=== PATIENT | female | born 1975 | race African-American/Black ===

== ENCOUNTER 2023-05-05 02:13 | Emergency (ER) | payer OTHER, SELFPAY ==
--- NOTE | ~2023-05-05 | CT_ITS ---
CT of the Abdomen and Pelvis: Indication: Abdominal pain Technique: 2.5 mm axial scans were obtained through the abdomen and pelvis following intravenous adm inistration of 100 cc of Omnipaque 350. Dose reduction technique was used on this scan by utilizing a utomated exposure control and iterative reconstruction technique. The dose-length product (DLP) was 2 05.08 mGy-cm. Findings: Scans through the lung bases are unremarkable. The liver, spleen, pancreas, gallbladder, adrenals and kidneys are within normal limits. No evidence of aortic aneurysm. No lymphadenopathy. No bowel obstruction. No abscess or free air. Questionable wall thickening gastric antrum. Images through the pelvis were performed. Urinary bladder is unremarkable. 2.8 cm right ovarian cyst present. No adnexal mass seen. No ascites. Impression: Questionable focal wall thickening gastric antrum. Correlate for gastritis/peptic ulcer disease. 2.8 cm right ovarian cyst. Reviewed, dictated and finalized at [facility]. RWRITING ASSISTANT Impression: Questionable focal wall thickening gastric antrum. Correlate for gastritis/pept ic ulcer disease. 2.8 cm right ovarian cyst.
[2023-05-05 02:27] VITALS: BP 109/75; PULSE 79; RESP 15; TEMP 36.6; O2SAT 100
[2023-05-05 02:47] LABS: Basophils Percent Auto 0.3 % (0.2-1.2); Eosinophils Absolute Auto 0.1 K/mm3 (0-0.3); Hemoglobin 13.3 g/dL (12.0-15.0); Immature Granulocyte Absolute 0.01 K/mm3 (0.00-0.031); Immature Granulocyte Percent A 0.2 % (0-0.5); Lymphocytes Absolute Auto 2.23 K/mm3 (0.9-3.2); Lymphocytes Percent Auto 37.2 % (18.3-44.2); Mean Corpuscular HGB Conc 31.7 g/dl (32-36); Mean Corpuscular Hemoglobin 30.4 pg (26-34); Mean Corpuscular Volume 96.1 fl (80-100); Mean Platelet Volume 10.8 fl (7.4-10.4); Monocytes Absolute Auto 0.4 K/mm3 (0.1-0.6); Neutrophils Absolute Auto 3.3 K/mm3 (1.3-6.7); Neutrophils Percent Auto 54.3 % (45.5-73.1); Platelet Count Result 243 k/mm3 (150-375); Red Blood Count 4.37 M/mm3 (4.2-5.4); Red Cell Distribution Width 14.6 % (11.5-14.5)
[2023-05-05 02:56] LABS: Alanine Aminotransferase 16 U/L (6-35); Albumin Level 4.3 g/dL (3.5-5.1); Alkaline Phosphatase 206 U/L (38-126); Anion Gap 7 mmol/L (8-16); Aspartate Amino Transferase 20 U/L (14-36); Bilirubin,Total 0.4 mg/dL (0.2-1.3); Blood Urea Nitrogen 15 mg/dL (7-17); Calcium 9.3 mg/dL (8.4-10.2); Carbon Dioxide 27 mmol/L (22-30); Chloride 105 mmol/L (98-107); Estimated CRCL calculation 72 ml/min; Estimated Glomerular Filt Rate > 60; Glucose 97 mg/dL (65-110); Lipase 403 U/L (23-300); Potassium 3.7 mmol/L (3.4-5.0); Sodium 139 mmol/L (137-145)
--- NOTE | 2023-05-05 03:01 | ED.GENADULT ---
HPI - General Adult General Chief complaint: Abdominal Pain Stated complaint: abd pain Time Seen by Provider: 05/05/23 02:17 History of Present Illness HPI narrative: 47-year-old female present to the emergency department for evaluation of lower abdominal pain. Patient states she also has had nausea for the last few days. Patient states that the abdominal pain started earlier today. Patient denies any pain with urination but does have urinary pressure. Patient does have some epigastric tenderness to palpation but denies any prior history pancreatitis. Patient does admit to drinking alcohol almost daily. patient denies any change in bowel habits and denies any black tarry stool, denies any prior history of GI bleed. Related Data Allergies Allergy/AdvReac Type Severity Reaction Status Date / Time No Known Allergies Allergy Verified 06/14/21 14:49 Review of Systems Review of Systems: All systems reviewed & are unremarkable except as noted in HPI and below PMFSH Surgical History Surgical History (Updated 06/14/21 @ 14:50 by Enma Woodard MA) S/P foot surgery, left Social History Social History (Updated 06/14/21 @ 14:51 by Enma Woodard MA) Smoking packs per day: 2 Smoking cigarettes per day: 40.0 Years smoked: 20 Smoking pack-years: 40.00 Smoking status: Current some day smoker Tobacco type: cigarettes Alcohol intake: current Alcohol use details: socially Substance use: never Occupation/Education: occupation Additional occupation/education comments: intermediate Gender identity (if verbalized by the patient): Female Sexual Orientation (if Verbalized by the Patient): Straight or Heterosexual Spiritual care concerns: No Agree to blood products: No Exam Narrative: APPEARANCE: Well appearing, no pain, no distress, well-nourished. HEAD: normocephalic, atraumatic. EYES: PERRLA/EOMI, conjunctivae clear. NOSE: Normal no drainage EARS:TMS clear with good light reflex. THROAT: Pharynx clear, no exudate. NECK: Supple. No adenopathy, no masses. RESPIRATORY: Airway patent, respirations nonlabored. Clear to auscultation bilaterally, no rales, rhonchi, wheezing. CARDIOVASCULAR: Regular rate and rhythm without murmurs rubs or gallops. ABDOMINAL: epigastric and suprapubic tenderness to palpation MUSCULOSKELETAL: Moves all extremities. Strength/ROM intact, No edema, No calf tenderness. NEURO: Alert. Cranial nerves II through XII intact. grossly intact Course Course Emergency Course: 47-year-old female presented to the emergency department for evaluation of suprapubic abdominal pain. Patient is afebrile with no leukocytosis but a stable 6 hemoglobin of 13.3. No significant abnormalities on her CMP. Patient did have an elevated lipase of 403. UA was concerning for urinary tract infection. CT scan did show questionable focal wall thickening of the gastric antrum. Patient was started on antibiotics for the urinary tract infection. All questions were addressed. Patient was comfortable the plan with discharge and close follow-up. Vital Signs Vital signs: Vital Signs Temperature 97.8 F 05/05/23 02:27 Pulse Rate 79 05/05/23 02:27 Respiratory Rate 15 05/05/23 02:27 Blood Pressure 109/75 05/05/23 02:27 Pulse Oximetry 100 05/05/23 02:27 Oxygen Delivery Room Air 05/05/23 02:27 Temperature 97.8 F 05/05/23 02:27 Pulse Rate 77 05/05/23 06:13 Respiratory Rate 14 05/05/23 06:13 Blood Pressure 99/70 L 05/05/23 06:13 Pulse Oximetry 100 05/05/23 06:13 Oxygen Delivery Room Air 05/05/23 02:27 Medical Decision Making Differential Diagnosis Differential Diagnosis: pancreatitis, gastritis, esophagitis, colitis, diverticulitis, appendicitis, urinary tract infection, pyelonephritis Vital Signs Vital Signs: Vital Signs Temperature 97.8 F 05/05/23 02:27 Pulse Rate 79 05/05/23 02:27 Respiratory Rate 15 05/05/23 02:27 Blood Pressure 109/75
[2023-05-05] MEDS: HYDROmorphone HCL INJ (*CRX) 1 MG/ML SYR 0.5 MG IV PUSH (03:07)
[2023-05-05] MEDS: SODIUM CHLORIDE 0.9% IV 1,000 ML 999 ML IV CONT (03:07)
[2023-05-05] MEDS: METOCLOPRAMIDE HCL INJ 10 MG/2 ML VIAL IV PUSH (03:08)
[2023-05-05 03:54] LABS: Appearance Urine Cloudy (Clear); Bacteria Urine Rare /hpf; Bilirubin Urine Negative (Negative); Blood Urine 3+ (Negative); Color Urine Yellow (Yellow); Glucose Urine UA Negative (Negative); Ketones Urine Trace mg/dL (Negative); Leukocyte Esterase Ur Trace LEU/UL (Negative); Nitrate Urine Negative (Negative); Non Pathogenic Casts 0-2; Protein Urine Negative (Negative); Specific Grav Ur 1.027 (1.001-1.035); Squamous Epithelial Cell Urine Few /hpf (Few); pH Urine 6.5 (5.0-9.0)
[2023-05-05 04:26] LABS: Add Urine Microscopic? YES
[2023-05-05] MEDS: ACETAMINOPHEN 500 MG TABLET 1000 MG PO (05:35)
[2023-05-05] MEDS: PHENAZOPYRIDINE HCL 100 MG TABLET PO (05:35)
[2023-05-05 06:13] VITALS: BP 99/70; PULSE 77; RESP 14; O2SAT 100
== END 2023-05-05 06:33 | disposition home or self-care (01) ==
PROVIDERS: Emergency Provider Emergency Medicine
DX: N39.0 Urinary tract infection, site not specified (principal); K29.70 Gastritis, unspecified, without bleeding; F17.210 Nicotine dependence, cigarettes, uncomplicated; N83.201 Unspecified ovarian cyst, right side
CPT/HCPCS: 36415; 74177; 80053; 81001; 81025; 83690; 85025; 87086; 87088; 96361; 96365; 96375; 99284; A9270; J0696; J1170; J2765; J7030; Q9967

== ENCOUNTER 2023-06-07 10:25 | Emergency (ER) | payer OTHER, SELFPAY ==
[2023-06-07] VITALS (17 sets, daily range): BP systolic 106–141; BP diastolic 69–91; PULSE 60–87; RESP 13–21; TEMP 36.5; O2SAT 92–100
--- NOTE | ~2023-06-07 | CT_ITS ---
EXAMINATION: CT abdomen pelvis w con DATE: 06/07/2023 15:22 INDICATION: Right lower quadrant abdominal tenderness. TECHNIQUE: Computed tomography (CT) of the abdomen and pelvis was performed with 100 mL Omnipaque 350 intravenous contrast. Automated exposure control and iterative reconstruction technique were employe d. The dose-length product was 210.76 mGy-cm. COMPARISON: CT abdomen and pelvis 05/05/2023, ultrasound 06/07/2023 FINDINGS: The visualized portions of the lung bases demonstrate again demonstrate numerous 1-2 mm nod ules, likely benign. No pleural effusion. The heart size is normal. No pericardial effusion. The sple en, pancreas, adrenal glands, and kidneys are normal. There are no dilated loops of bowel. The append ix is not visualized. There are no pathologically enlarged lymph nodes. There is physiologic fluid in the pelvis. There is mild lumbar spondylosis. IMPRESSION: 1. No etiology for right lower quadrant abdominal tenderness. Reviewed, dictated and finalized at location E. NDARY SOCIAL STUDIES TEACHER
--- NOTE | ~2023-06-07 | US_ITS ---
EXAMINATION: US pelvic complete w TV DATE: 06/07/2023 15:06 INDICATION: Pelvic pain Comparison:No prior studies for comparison. TECHNIQUE: Multiple transabdominal and endovaginal sonographic images of the pelvis performed. FINDINGS: The uterus measures 7.8 x 4.1 x 5.1 cm. The endometrial complex measures 5 mm. The right ovary is not visualized. Left ovary is normal measuring 2.1 x 3 x 1.5 cm. There is free fluid in the pelvis. There are no abnormal masses seen on either side. IMPRESSION: 1. Unremarkable pelvic ultrasound. Reviewed, dictated and finalized at location B. RACT WRITER
--- NOTE | 2023-06-07 12:29 | PC.NURSE ---
pt states they were prescribed antibiotics roughly a month ago but have no been compliant with prescription. pt states they take 1 or 2 pills a week and have not finished prescription
[2023-06-07 13:20] LABS: Appearance Urine Clear (Clear); Bacteria Urine None Seen /hpf; Bilirubin Urine Negative (Negative); Color Urine Yellow (Yellow); Glucose Urine UA Negative (Negative); Ketones Urine Negative (Negative); Leukocyte Esterase Ur Negative LEU/UL (Negative); Nitrate Urine Negative (Negative); Non Pathogenic Casts 0-2; Protein Urine Negative (Negative); Specific Grav Ur 1.012 (1.001-1.035); Squamous Epithelial Cell Urine None seen /hpf (Few); WBC Urine 0-5 /hpf
--- NOTE | 2023-06-07 13:22 | ED.GENADULT ---
HPI - General Adult General Chief complaint: Recheck/Abnormal Lab/Rx Stated complaint: Sent by OB office. Time Seen by Provider: 06/07/23 13:00 Source: patient and other (OBGYn Dr Choe) Mode of arrival: ambulatory Limitations: no limitations History of Present Illness HPI narrative: Patient is a 47 yo female who presents from ObGyn's office given concerns. She has had right sided abdominal pain (RLQ) radiating to her back for 3 weeks. Patient is concerned about weight loss, from 122 lbs to 113 lbs in the past 3 weeks. Recently diagnosed with a UTI here in the ED last month, has only intermittently been taking prescription for this but symptoms started after starting Keflex. Also takes omeprazole. No fevers but has been having night sweats. She does have chronic constipation, sometimes going several days to a week between bowel movements. Last colonoscopy was in the past 1-2 years, reportedly normal. No bloody bowel movements. Has been having some vaginal discharge but no vaginal bleeding. LMP March 2023 thus believed to be marcia-menopausal. Has been nauseated but without vomiting. Gets lightheaded when standing. Not using Tylenol/ibuprofen. Had been using cigarettes an and marijuana to help pain/symptoms. No palliating/provoking symptoms. Pain is sharp and burning. 10/10 in severity. Related Data Allergies Allergy/AdvReac Type Severity Reaction Status Date / Time No Known Allergies Allergy Verified 06/07/23 09:20 [facility] Surgical History Surgical History History of colonoscopy S/P foot surgery, left Social History Social History (Updated 06/08/23 @ 00:14 by Shari Cali MD) Smoking packs per day: 2 Smoking cigarettes per day: 40.0 Years smoked: 20 Smoking pack-years: 40.00 Smoking status: Current every day smoker Tobacco type: cigarettes Alcohol intake: current Alcohol use details: socially Substance use: current Substance use type: marijuana Current Housing: Decline to Answer Concerned About Future Housing: Decline to Answer Difficulty Paying Gas/Electric Bills: Decline to Answer Difficulty Paying for Meds: Decline to Answer Currently Unemployed: Decline to Answer Education: Don't Know Difficulty w/ Childcare or Family Care: Decline to Answer Living arrangements: alone Occupation/Education: occupation 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 HEAD: Normocephalic, atraumatic. EYES: Non injected, non icteric ENT: Nares clear, no rhinorrhea or epistaxis. NECK: Supple. CHEST: Speaking in complete sentences No respiratory distress. HEART: Regular rate and rhythm. ABDOMEN: Soft, nondistended. No tenderness to palpation throughout . No rigidity or guarding. EXTREMITIES: Normal range of motion. No edema. SKIN: Warm, dry, no rash. NEURO: No focal deficits. Alert and oriented. Ambulates to restroom with steady gait. PSYCH: Normal mood and affect. Course Vital Signs Vital signs: Vital Signs Temperature 97.7 F 06/07/23 10:36 Pulse Rate 87 06/07/23 10:36 Respiratory Rate 16 06/07/23 10:36 Blood Pressure 141/86 H 06/07/23 10:36 Pulse Oximetry 100 06/07/23 10:36 Oxygen Delivery Room Air 06/07/23 10:36 Temperature 97.7 F 06/07/23 10:36 Pulse Rate 72 06/07/23 15:30 Respiratory Rate 16 06/07/23 15:30 Blood Pressure 123/91 H 06/07/23 15:30 Pulse Oximetry 92 06/07/23 15:30 Oxygen Delivery Room Air 06/07/23 10:36 Medical Decision Making MDM Narrative Medical decision making narrative: Pt presents from ObGyn office. I did discuss patient with ObGyn
[2023-06-07 13:25] LABS: Add Urine Microscopic? YES
[2023-06-07] MEDS: ACETAMINOPHEN 500 MG TABLET 1000 MG PO (14:05)
[2023-06-07 15:17] LABS: Estimated Glomerular Filt Rate > 60
[2023-06-07 15:40] LABS: Basophils Percent Auto 0.6 % (0.2-1.2); Eosinophils Percent Auto 0.6 % (0-4.4); Hematocrit 40.6 % (37.0-47.0); Hemoglobin 13.1 g/dL (12.0-15.0); Immature Granulocyte Absolute 0.01 K/mm3 (0.00-0.031); Immature Granulocyte Percent A 0.2 % (0-0.5); Lymphocytes Absolute Auto 2.05 K/mm3 (0.9-3.2); Mean Corpuscular HGB Conc 32.3 g/dl (32-36); Mean Corpuscular Hemoglobin 30.6 pg (26-34); Mean Corpuscular Volume 94.9 fl (80-100); Mean Platelet Volume 11.1 fl (7.4-10.4); Monocytes Absolute Auto 0.3 K/mm3 (0.1-0.6); Monocytes Percent Auto 6.1 % (2.6-8.5); Neutrophils Absolute Auto 2.8 K/mm3 (1.3-6.7); Neutrophils Percent Auto 53.5 % (45.5-73.1); Platelet Count Result 205 k/mm3 (150-375); Red Blood Count 4.28 M/mm3 (4.2-5.4); Red Cell Distribution Width 13.6 % (11.5-14.5); White Blood Count 5.3 K/mm3 (4.5-10.0)
[2023-06-07 15:46] LABS: Alanine Aminotransferase 14 U/L (6-35); Albumin Level 4.5 g/dL (3.5-5.1); Alkaline Phosphatase 110 U/L (38-126); Anion Gap 9 mmol/L (8-16); Aspartate Amino Transferase 22 U/L (14-36); Bilirubin,Total 0.6 mg/dL (0.2-1.3); Blood Urea Nitrogen 12 mg/dL (7-17); Calcium 9.3 mg/dL (8.4-10.2); Carbon Dioxide 25 mmol/L (22-30); Chloride 103 mmol/L (98-107); Estimated Glomerular Filt Rate > 60; Glucose 84 mg/dL (65-110); Lipase 128 U/L (23-300); Potassium 3.6 mmol/L (3.4-5.0); Sodium 137 mmol/L (137-145)
[2023-06-07 16:17] LABS: Influenza A QL RT-PCR Negative (Negative); Influenza B QL RT-PCR Negative (Negative); RSV RNA, RT-PCR Negative (Negative); SARS-CoV-2 RNA PCR Negative (Negative)
[2023-06-07] MEDS: DICYCLOMINE HCL 10 MG CAPSULE PO (17:10)
== END 2023-06-07 17:11 | disposition home or self-care (01) ==
PROVIDERS: Emergency Provider Student in an Organized Health Care Education/Training Program
DX: R10.31 Right lower quadrant pain (principal); Z20.822 Contact with and (suspected) exposure to COVID-19; F17.210 Nicotine dependence, cigarettes, uncomplicated
CPT/HCPCS: 74177; 76830; 76856; 80053; 81001; 81025; 83690; 85025; 87637; 99284; A9270; Q9967

== ENCOUNTER 2024-01-05 12:09 | Emergency (ER) | payer OTHER, SELFPAY ==
--- NOTE | ~2024-01-05 | CT_ITS ---
EXAMINATION: CT abdomen pelvis w con DATE: 01/05/2024 17:18 INDICATION: Left flank pain and left lower quadrant abdominal pain. TECHNIQUE: Computed tomography (CT) of the abdomen and pelvis was performed with 100 mL Omnipaque-350 intravenous contrast. Automated exposure control and iterative reconstruction technique were employe d. The dose-length product was 320.65 mGy-cm. COMPARISON: 06/07/2023 FINDINGS: Mild emphysema. Heart size is normal. No pericardial or pleural effusion. Liver, gallbladder, spleen, pancreas, bilateral adrenal glands and kidneys are normal. Bowels including the appendix are normal. Bladder, uterus and left adnexa are normal. 1.5 similar right ovarian follicle. Minimal amount of li phil physiologic free fluid in the cul-de-sac. No pathologically enlarged abdominal or pelvic lymphad enopathy. Transitional bilaterally sacralized L5 segment. IMPRESSION: 1. No acute intra-abdominal/pelvic process. Reviewed, dictated and finalized at location A.
--- NOTE | ~2024-01-05 | US_ITS ---
US pelvic complete w TV Ordering provider: Ligia Martinez History: . left sided pelvic pain, r/o torsion . Comparison: None. Technique: Transabdominal and endovaginal ultrasound of the pelvis (Doppler ultrasound interrogation techniques used as needed for this exam.) FINDINGS: CERVIX: Normal. UTERUS: Measures 7.4x 3.6x 4.8 cm in length which is within normal limits and is anteverted. No myom etrial masses. ENDOMETRIUM: Normal in thickness measuring 6.9 mm. No endometrial masses, cysts or fluid. CUL DE SAC: No free fluid. RIGHT OVARY: Normal in size measuring 2.6x 1.4x 2.8 cm. Normal echotexture. Doppler vascular flow pre sent. Dominant follicle is seen measuring 1.8 cm. LEFT OVARY: Normal in size measuring 1.8x 1.1x 1.8 cm. Normal echotexture. Doppler vascular flow pres ent. ADNEXA: Normal. No mass. IMPRESSION: Dominant follicle in the right ovary. normal pelvic ultrasound. Reviewed, dictated and finalized at location A.
[2024-01-05 13:26] VITALS: PULSE 94; RESP 16; TEMP 36.4; O2SAT 99
--- NOTE | 2024-01-05 13:52 | ED.ABDPAIN ---
HPI - Abdominal Pain General Chief Complaint: Abdominal Pain <JAYANT Tyson Last Filed: 01/05/24 13:55> Stated Complaint: abdominal pain <JAYANT Tyson Last Filed: 01/05/24 13:55> Time Seen by Provider: 01/05/24 13:52 <Sapna Tobias PA-C - Last Filed: 01/05/24 13:55> Focused HPI: patient is a 48-year-old female who presents the ED with report of left lower quadrant abdominal pain. Patient reports pain began yesterday and has been worsening since then. She has not taken anything for the pain. Pain radiates around to left lower back /left flank region. She denies history of similar pain. Denies nausea, vomiting, diarrhea, constipation. Reports regular bowel movements. Denies dysuria, hematuria, abnormal vaginal bleeding. GENERAL: Mildly uncomfortable-appearing, thin, and in no acute distress. HEAD: Normocephalic, atraumatic. CHEST: Clear to auscultation. ?No respiratory distress. HEART: Regular rate and rhythm.? ABD: TTP diffusely throughout abdomen, more focal in LLQ, +CVA tenderness on L NEURO: ?Alert and oriented x3. Patient screened in triage and initial orders placed.? ?Additional care and disposition to be based upon?diagnostic testing and treatment. <JAYANT Tyson Last Filed: 01/05/24 13:55> Focused HPI: Patient is a 48-year-old female who presents the ED with report of left lower quadrant abdominal pain. Patient reports pain began yesterday and has been worsening since then. She has not taken anything for the pain. Pain radiates around to left lower back /left flank region. She denies history of similar pain. Denies nausea, vomiting, diarrhea, constipation. Reports regular bowel movements. Denies dysuria, hematuria, abnormal vaginal bleeding. GENERAL: Mildly uncomfortable-appearing, thin, and in no acute distress. HEAD: Normocephalic, atraumatic. CHEST: Clear to auscultation. ?No respiratory distress. HEART: Regular rate and rhythm.? ABD: TTP diffusely throughout abdomen, more focal in LLQ, +CVA tenderness on L NEURO: ?Alert and oriented x3. Patient screened in triage and initial orders placed.? ?Additional care and disposition to be based upon?diagnostic testing and treatment. <Ligia Martinez PA-C - Last Filed: 01/06/24 01:11> Source: patient <Sapna Tobias PA-C - Last Filed: 01/05/24 13:55> Mode of arrival: ambulatory <Sapna Tobias PA-C - Last Filed: 01/05/24 13:55> Limitations: no limitations <Sapna Tobias PA-C - Last Filed: 01/05/24 13:55> Related Data Allergies/Adverse Reactions: Allergies Allergy/AdvReac Type Severity Reaction Status Date / Time No Known Allergies Allergy Verified 06/07/23 09:20 <Sapna Tobias PA-C - Last Filed: 01/05/24 13:55> Review of Systems Review of Systems: CONSTITUTIONAL: Denies fever GASTROINTESTINAL: Reports abdominal pain. Denies nausea, vomiting, or diarrhea. GENITOURINARY: Denies dysuria or hematuria. <Ligia Martinez PA-C - Last Filed: 01/06/24 01:11> All systems reviewed & are unremarkable except as noted in HPI and below <Ligia Martinez PA-C - Last Filed: 01/06/24 01:11> [facility] Past Medical History Medical History: Medical History (Updated 01/06/24 @ 01:07 by Ligia Martinez PA-C) History of gastroesophageal reflux (GERD) <Sapna Tobias PA-C - Last Filed: 01/05/24 13:55> Surgical History Surgical History: Surgical History History of colonoscopy S/P foot surgery, left <Sapna Tobias PA-C - Last Filed: 01/05/24 13:55> Social History Social History: Social History (Updated 06/08/23 @ 00:14 by Shari Cali MD) Smoking packs per day: 2 Smoking cigarettes per day: 40.0 Years smoked: 20 Smoking pack-years: 40.00 Smoking status: Current every day smoker Tobacco type: cigarettes Alcohol intake: cur
[2024-01-05 15:22] LABS: Hematocrit 44.1 % (37.0-47.0); Hemoglobin 14.2 g/dL (12.0-15.0); Mean Corpuscular HGB Conc 32.2 g/dl (32-36); Mean Corpuscular Hemoglobin 31.1 pg (26-34); Mean Corpuscular Volume 96.7 fl (80-100); Mean Platelet Volume 11.1 fl (7.4-10.4); Platelet Count Result 220 k/mm3 (150-375); Red Blood Count 4.56 M/mm3 (4.2-5.4); Red Cell Distribution Width 13.5 % (11.5-14.5)
[2024-01-05 15:32] LABS: Alanine Aminotransferase 15 U/L (6-35); Albumin Level 4.4 g/dL (3.5-5.1); Alkaline Phosphatase 140 U/L (38-126); Anion Gap 7 mmol/L (4-12); Aspartate Amino Transferase 22 U/L (14-36); Bilirubin,Total 0.3 mg/dL (0.2-1.3); Blood Urea Nitrogen 13 mg/dL (7-17); Calcium 9.5 mg/dL (8.4-10.2); Carbon Dioxide 28 mmol/L (22-30); Chloride 103 mmol/L (98-107); Estimated CRCL calculation 60 ml/min; Estimated Glomerular Filt Rate > 60; Glucose 89 mg/dL (65-110); Lipase 195 U/L (23-300); Potassium 4.3 mmol/L (3.4-5.0); Sodium 138 mmol/L (137-145)
--- NOTE | 2024-01-05 19:08 | PC.NURSE ---
Pt asking how much longer before being seen. Pt holding bag of Dorititos states I have been here all day, I'm hungry Instructed not to eat or drink anything until seen by ER
[2024-01-05] MEDS: HYDROcodone/acetaminophen (*CRX) 5-325 MG TABLET 1 TAB PO (21:29)
[2024-01-05 21:34] VITALS: BP 125/93; O2SAT 100
[2024-01-05 22:20] VITALS: BP 101/68; PULSE 68; RESP 14; O2SAT 100
[2024-01-05 22:35] LABS: BEDSIDEPREGUCG Negative
[2024-01-05 22:51] LABS: Add Urine Microscopic? YES; Appearance Urine Clear (Clear); Bacteria Urine None Seen /hpf; Bilirubin Urine Negative (Negative); Blood Urine Trace (Negative); Color Urine Yellow (Yellow); Glucose Urine UA Negative (Negative); Ketones Urine Negative (Negative); Leukocyte Esterase Ur Negative LEU/UL (Negative); Nitrate Urine Negative (Negative); Non Pathogenic Casts 0-2; Protein Urine Negative (Negative); RBC Urine 0-2 /hpf (0-2); Specific Grav Ur 1.026 (1.001-1.035); Squamous Epithelial Cell Urine None Seen /hpf (Few); Urobilinogen Urine 0.2 mg/dL (<2.0); WBC Urine 0-5 /hpf (0-3); pH Urine 5.5 (5.0-9.0)
[2024-01-05] MEDS: ONDANSETRON INJ 4 MG/2 ML VIAL IV PUSH (22:51)
[2024-01-05] MEDS: MORPHINE SULFATE (*CRX) 4 MG/ML INJ IV PUSH (22:51)
[2024-01-05 23:00] VITALS: O2SAT 100
--- NOTE | 2024-01-05 23:09 | PC.NURSE ---
care and report given to DBEI Sarah. all questions answered.
[2024-01-06 00:36] LABS: Trichomonas Vag PCR NOT DETECTED (NOT DETECTE)
[2024-01-06 01:01] LABS: Chlamydia trachomatis NOT DETECTED (NOT DETECTE); Neisseria gonorrhoeae PCR NOT DETECTED (NOT DETECTE)
[2024-01-06 01:48] VITALS: BP 116/72; PULSE 69; RESP 17; TEMP 36.7; O2SAT 99
== END 2024-01-06 01:49 | disposition home or self-care (01) ==
PROVIDERS: Physician Assistant; Emergency Provider Physician Assistant; PCP Family Medicine
DX: R10.32 Left lower quadrant pain (principal); F17.210 Nicotine dependence, cigarettes, uncomplicated; Z11.3 Encounter for screening for infections with a predominantly sexual mode of transmission
CPT/HCPCS: 36415; 74177; 76830; 76856; 80053; 81001; 81025; 83690; 85025; 87070; 87491; 87591; 87661; 96374; 96375; 99284; A9270; J2270; J2405; Q9967

== ENCOUNTER 2024-06-18 13:11 | Outpatient (CLI) | payer OTHER, SELFPAY ==
--- OUTSIDE RECORDS SUMMARY | 2024-06-18 13:22 | XMS_ITS | Data Portability ---
Author Organization [facility] [email or web address], Main Office Address [address] [place] [address] Care Team Providers Care Hemmer Chainstitch Name Role Phone JADA FELTON Superintendent [employer] GREGG KEVIN Primary Care Provider GREGG KEVIN Referring Provider [phone] Assessment No assessment recorded. Plan of Treatment Reminders Order Date Submit Date Provider Last Modified By Organization Details Last Modified Time Details Appointments None record ed. Lab None record ed. Referral None record ed. Procedures None record ed. Surgeries None record ed. Imaging None record ed. Medication Orders None record ed. Patient TargetsNo targets recorded. Patient InstructionsNo instructions recorded. Reason for Referral None Reported. Results Created Date Observation Date Name Description Value Unit Range Abnormal Flag Note LastModifiedBy Organization Detail LastModifiedTime 05/27/19 22 05/28/2021 FSH/F OLLIC LE STIMU LAT. HORMO NE [facility] - [facility] 83.9 mIU/m L Adult Femal e: Folli cular phase 3.5 - 12.5 Ovula tion phase 4.7 - 21.5 Lutea l phase 1.7 - 7.7 Postm enopa usal 25.8 - 134.8 Perfo rmed at: CB - [facility] n [address] [facility], [place] [id number] Lab Direc tor: John jordan PhD, Phone : [phone] Not Available [facility] (Lab) [address] [place], [address], 05/28/2021 09:12:49 05/27/19 22 05/28/2021 ESTRA DIOL estradiol 46.2 pg/mL Adult Femal e: Folli cular phase 12.5 - 166.0 Ovula tion phase 85.8 - 498.0 Lutea l phase 43.8 - 211.0 Postm enopa usal <6.0 - 54.7 Pregn ruthy 1st trime ster 215.0 - >4300 .0 Ankush ECLIA metho dolog y Perfo rmed at: - [facility] [place] n [address] [facility], [place] [address] 1262 Lab Direc tor: John jordan PhD, Phone : [phone] Not Available [facility] (Lab) [address] [place], [address], 05/28/2021 08:14:50 05/27/19 22 05/27/2021 HEMOG LOBIN A1C HA1C 5.6 % 4.0-6. 0 Diabe elaine Scree portia Crite telma: <5.7% Consi stent with absen ce of diabe elaine 5.7-6 .4% Consi stent with incre ased risk for diabe elaine (pred iabet es) >OR=6 .5% Consi stent with diabe elaine REFER ENCE: Diabe elaine Care 2016, 39(White ppl.1 ):s13 -s22 Not Available [facility] (Lab) [address] [place], [address], 05/27/2021 20:33:03 05/27/19 22 05/27/2021 TSH thyroid-stim ulating hormone 2.010 uIU/m L 0.465- 4.680 Not Available [facility] (Lab) [address] [place], [address], 05/27/2021 18:33:53 05/27/19 22 05/27/2021 VITAM IN D 25-HY DROXY vd25oh 20.5 NG/mL 30-100 low Vitam in D Statu s: Defic ient: <20 ng/mL Insuf ficie nt: 20-29 ng/mL Suffi cient : 30-10 0 ng/mL Not Available [facility] (Lab) [address] [place], [address], 05/27/2021 18:29:44 05/27/19 22 05/27/2021 B-HCG TOTAL , QUANT ITATI VE human chorionic gonadotropin <2.39 mIU/m L 0.00-4 .82 WEEKS OF PREGN RUTHY REFER ENCE RANGE S 4 420 TO 6,230 5 620 TO 29,30 0 6 3,660 TO 108,0 00 7 10,90 0 TO 148,0 00 8 30,70 0 TO 184,0 00 9 67,20 0 TO 169,0 00 10 30,00 0 TO 167,0 00 14 15,00 0 TO 92,10 0 15 10,60 0 TO 64,20 0 16 9,000 TO 52,80 0 17 6,700 TO 47,10 0 18 6,100 TO 42,10 0 19 6,800 TO 42,90 0 Not Available [facility] (Lab) [address] [place], [address], 05/27/2021 18:29:41 05/27/19 22 05/27/2021 T4 FREE free T4 1.22 NG/dL 0.78-2 .19 Not Available [facility] (Lab) [address] [place], [address], 05/27/2021 18:29:34 05/27/19 22 05/27/2021 LIPID PANEL LDL cholesterol, calculated 87 mg/dL 0-130 NIH MEAGHAN NSUS REPOR T RECOM MENDA TIONS FOR LDL: ADULT CHILD LOW RISK <130 <110 (OPTI MAL LDL) <100 ----- BORDE RLINE : 130-1 59 ----- HIGH RISK: >160 >130 A TRIGL YCERI DE RESUL T >400 INVAL IDATE S THE CALCU LATIO N FOR LDL FRACT IONAT ION - THE LDL RESUL T WILL NOT BE REPOR TEN. Not Available [facility] (Lab) [address] [place], [address], 05/27/2021 18:13:10 05/27/19 22 05/27/2021 LIPID PANEL cholesterol 190 mg/dL 140-19 9 NIH MEAGHAN NSUS RECOM MENDA TION FOR DINO STERO L: ADULT CHILD LOW RISK: <200 <170 BORDE RLINE : <200- 239 ----- HIGH RISK: >240 >200 Not Available [facility] (Lab) [address] [place], [address], 05/27/2021 18:13:10 05/27/19 22 05/27/2021 LIPID PANEL triglyceride s 56 mg/dL 0-150 NIH MEAGHAN NSUS REPOR T RECOM MENDA TION FOR TRIGL YCERI KIM: ADULT CHILD LOW RISK: <150 ----- BODER LINE: 150-1 99 ----- HIGH RISK: >200 ----- Not Available [facility] (Lab) [address] [place], [address], 05/27/2021 18:13:10 05/27/19 22 05/27/2021 LIPID PANEL HDL cholesterol 92 mg/dL 40- Not Available [facility] (Lab) [address] [place], [address], 05/27/2021 18:13:10 05/27/19 22 05/27/2021 COMPR EHENS EZ METAB OLIC PANEL carbon dioxide 26 mmol/ L 22-30 Not Available [facility] (Lab) [address] [place], [address], 05/27/2021 18:13:04 05/27/19 22 05/27/2021 COMPR EHENS EZ METAB OLIC PANEL sodium 139 mmol/ L 137-14 5 Not Available [facility] (Lab) [address] [place], [address], 05/27/2021 18:13:04 05/27/19 22 05/27/2021 COMPR EHENS EZ METAB OLIC PANEL potassium 3.6 mmol/ L 3.5-5. 1 Not Available [facility] (Lab) [address] [place], [address], 05/27/2021 18:13:04 05/27/19 22 05/27/2021 COMPR EHENS EZ METAB OLIC PANEL chloride 103 mmol/ L 98-107 Not Available [facility] (Lab) [address] [place], [address], 05/27/2021 18:13:04 05/27/19 22 05/27/2021 COMPR EHENS EZ METAB OLIC PANEL agap 13.6 mmol/ L 14-22 low Not Available [facility] (Lab) [address] [place], [address], 05/27/2021 18:13:04 05/27/19 22 05/27/2021 COMPR EHENS EZ METAB OLIC PANEL glucose 116 mg/dL 70-99 high Not Available [facility] (Lab) [address] [place], [address], 05/27/2021 18:13:04 05/27/19 22 05/27/2021 COMPR EHENS EZ METAB OLIC PANEL BUN 7 mg/dL 8-19 low Not Available [facility] (Lab) [address] [place], [address], 05/27/2021 18:13:04 05/27/19 22 05/27/2021 COMPR EHENS EZ METAB OLIC PANEL creatinine 0.65 mg/dL 0.66-1 .25 low Not Available [facility] (Lab) [address] [place], [address], 05/27/2021 18:13:04 05/27/19 22 05/27/2021 COMPR EHENS EZ METAB OLIC PANEL aspartate aminotransfe rase 18 U/L 15-37 Not Available [facility] (Lab) [address] [place], [address], 05/27/2021 18:13:04 05/27/19 22 05/27/2021 COMPR EHENS EZ METAB OLIC PANEL GFR >60 Refer ence Range : [place] ge GFR Healt hy Adult : >60 mL/mi n/1.7 3 m2 Chron ic Kidne y Disea se: 15-60 mL/mi n/1.7 3 m2 Kidne y Failu re: <15/m L/min /1.73 m2 www.n iddk. nih.g ov The MDRD study equat ion has not been valid ated in child mariia <18 years of age; pregn ant women ; the elder ly >85 years of age; or in some racia l or ethni c subgr oups, such as Hispa nics. Outsi de the valid ated marco eters , estim ated GFR is less accur ate, requi ring clini rodríguez judgm ent on a case- by-ca se basis . Clini rodríguez inter preta tion for other races and ages must be made by the clini blake. The MDRD study equat ion has not been valid ated for the evalu ation of serum creat inine relat ed to nutri mleinda l statu s or medic ation usage . For perso ns <18 years of age, a pedia tric GFR calcu lator is avail able on the [facility] websi te: https ://sandrine matos.sariah quintero.o fabiano/pr araess shannanal s/sandipo qi/gf r_cal culat or Not Available [facility] (Lab) [address] [place], [address], 05/27/2021 18:13:04 05/27/19 22 05/27/2021 COMPR EHENS EZ METAB OLIC PANEL alkaline phosphatase 111 U/L 38-126 Not Available [facility] (Lab) [address] [place], [address], 05/27/2021 18:13:04 05/27/19 22 05/27/2021 COMPR EHENS EZ METAB OLIC PANEL alanine aminotransfe rase 14 U/L 0-35 Not Available [facility] (Lab) [address] [place], [address], 05/27/2021 18:13:04 05/27/19 22 05/27/2021 COMPR EHENS EZ METAB OLIC PANEL bilirubin, total 0.40 mg/dL 0.20-1 .30 Not Available [facility] (Lab) [address] [place], [address], 05/27/2021 18:13:04 05/27/19 22 05/27/2021 COMPR EHENS EZ METAB OLIC PANEL calcium 9.2 mg/dL 8.4-10 .2 Not Available [facility] (Lab) [address] [place], [address], 05/27/2021 18:13:04 05/27/19 22 05/27/2021 COMPR EHENS EZ METAB OLIC PANEL total protein 7.7 g/dL 6.3-8. 2 Not Available [facility] (Lab) [address] [place], [address], 05/27/2021 18:13:04 05/27/19 22 05/27/2021 COMPR EHENS EZ METAB OLIC PANEL albumin 4.5 g/dL 3.4-5. 0 Not Available [facility] (Lab) [address] [place], [address], 05/27/2021 18:13:04 05/27/19 22 05/27/2021 COMPR EHENS EZ METAB OLIC PANEL globulin 3.2 g/dL 2.6-4. 2 Not Available [facility] (Lab) [address] [place], [address], 05/27/2021 18:13:04 05/27/19 22 05/27/2021 COMPR EHENS EZ METAB OLIC PANEL A/G ratio 1.4 ratio 1.0-2. 0 Not Available [facility] (Lab) [address] [place], [address], 05/27/2021 18:13:04 05/27/19 22 05/27/2021 CBC/C OMPLE TE BLD COUNT W/DIF F white blood cells 4.3 x10'3 /uL 4.2-10 .8 Not Available [facility] (Lab) [address] [place], [address], 05/27/2021 18:11:57 05/27/19 22 05/27/2021 CBC/C OMPLE TE BLD COUNT W/DIF F red blood cells 4.65 x10'6 /uL 3.80-5 .20 Not Available [facility] (Lab) [address] [facility] [place], [address], 05/27/2021 18:11:57 05/27/19 22 05/27/2021 CBC/C OMPLE TE BLD COUNT W/DIF F hemoglobin 14.2 g/dL 12.0-1 5.6 Not Available [facility] (Lab) [address] [place], [address], 05/27/2021 18:11:57 05/27/19 22 05/27/2021 CBC/C OMPLE TE BLD COUNT W/DIF F hematocrit 43.1 % 35.7-4 5.7 Not Available [facility] (Lab) [address] [place], [address], 05/27/2021 18:11:57 05/27/19 22 05/27/2021 CBC/C OMPLE TE BLD COUNT W/DIF F mean red cell volume 92.7 fL 82.0-9 9.0 Not Available [facility] (Lab) [address] [place], [address], 05/27/2021 18:11:57 05/27/19 22 05/27/2021 CBC/C OMPLE TE BLD COUNT W/DIF F mean red cell hemoglobin 30.5 pg 27.0-3 3.0 Not Available [facility] (Lab) [address] [place], [address], 05/27/2021 18:11:57 05/27/19 22 05/27/2021 CBC/C OMPLE TE BLD COUNT W/DIF F mean RBC HGB concentratio n 32.9 g/dL 31.0-3 6.0 Not Available [facility] (Lab) [address] [place], [address], 05/27/2021 18:11:57 05/27/19 22 05/27/2021 CBC/C OMPLE TE BLD COUNT W/DIF F red cell distribution width 13.5 % 11.8-1 5.5 Not Available [facility] (Lab) [address] [place], [address], 05/27/2021 18:11:57 05/27/19 22 05/27/2021 CBC/C OMPLE TE BLD COUNT W/DIF F platelets 181 x10'3 /uL 150-40 0 Not Available [facility] (Lab) [address] [place], [address], 05/27/2021 18:11:57 05/27/19 22 05/27/2021 CBC/C OMPLE TE BLD COUNT W/DIF F mean platelet volume 11.9 fL 9.0-12 .4 Not Available [facility] (Lab) [address] [place], [address], 05/27/2021 18:11:57 05/27/19 22 05/27/2021 CBC/C OMPLE TE BLD COUNT W/DIF F neutrophils 50.3 % 39.0-7 2.0 Not Available [facility] (Lab) [address] [place], [address], 05/27/2021 18:11:57 05/27/19 22 05/27/2021 CBC/C OMPLE TE BLD COUNT W/DIF F lymphocytes 40.0 % 16.0-4 7.0 Not Available [facility] (Lab) [address] [place], [address], 05/27/2021 18:11:57 05/27/19 22 05/27/2021 CBC/C OMPLE TE BLD COUNT W/DIF F monocytes 9.3 % 5.0-12 .0 Not Available [facility] (Lab) [address] [place], [address], 05/27/2021 18:11:57 05/27/19 22 05/27/2021 CBC/C OMPLE TE BLD COUNT W/DIF F eosinophils 0.2 % 1.0-7. 0 low Not Available [facility] (Lab) [address] [place], [address], 05/27/2021 18:11:57 05/27/19 22 05/27/2021 CBC/C OMPLE TE BLD COUNT W/DIF F basophils 0.2 % 0.0-2. 0 Not Available [facility] (Lab) [address] [place], [address], 05/27/2021 18:11:57 05/27/19 22 05/27/2021 CBC/C OMPLE TE BLD COUNT W/DIF F basophils, absolute count 0.01 x10'3 /uL 0.01-0 .08 Not Available [facility] (Lab) [address] [place], [address], 05/27/2021 18:11:57 05/27/19 22 05/27/2021 CBC/C OMPLE TE BLD COUNT W/DIF F immature granulocytes 0.0 % 0.00-0 .50 Not Available [facility] (Lab) [address] [place], [address], 05/27/2021 18:11:57 05/27/19 22 05/27/2021 CBC/C OMPLE TE BLD COUNT W/DIF F neutrophils, absolute count 2.15 x10'3 /uL 1.5-8. 0 Not Available [facility] (Lab) [address] [place], [address], 05/27/2021 18:11:57 05/27/19 22 05/27/2021 CBC/C OMPLE TE BLD COUNT W/DIF F lymphocytes, absolute count 1.71 x10'3 /uL 1.07-3 .43 Not Available [facility] (Lab) [address] [place], [address], 05/27/2021 18:11:57 05/27/19 22 05/27/2021 CBC/C OMPLE TE BLD COUNT W/DIF F monocytes, absolute count 0.40 x10'3 /uL 0.29-0 .99 Not Available [facility] (Lab) [address] [place], [address], 05/27/2021 18:11:57 05/27/19 22 05/27/2021 CBC/C OMPLE TE BLD COUNT W/DIF F eosinophils, absolute count 0.01 x10'3 /uL 0.02-0 .53 low Not Available [facility] (Lab) [address] [place], [address], 05/27/2021 18:11:57 05/27/19 22 05/27/2021 CBC/C OMPLE TE BLD COUNT W/DIF F immature granulocytes ,absolute 0.00 x10'3 /uL 0.00-0 .05 Not Available [facility] (Lab) [address] [place], [address], 05/27/2021 18:11:57 05/27/19 22 05/27/2021 CBC/C OMPLE TE BLD COUNT W/DIF F nucleated red blood cells 0.0 % -0 Not Available [facility] (Lab) [address] [place], [address], 05/27/2021 18:11:57 05/27/19 22 05/27/2021 CBC/C OMPLE TE BLD COUNT W/DIF F NRBC# 0.00 x10'3 /uL Not Available [facility] (Lab) [address] [place] [address], [place], [address], 05/27/2021 18:11:57 06/24/19 22 06/24/2021 urina lysis , dipst ick Leukocytes (reference range: negative roly/? ? ?l) Negati ve Not Available [address], [address], 06/24/2021 11:20:36 06/24/19 22 06/24/2021 urina lysis , dipst ick Nitrite (reference rage: negative mg/dl) negati ve Not Available [address], [address], 06/24/2021 11:20:36 06/24/19 22 06/24/2021 urina lysis , dipst ick Urobilinogen (reference range: 0.2-1 mg/dl) 1 Not Available [address], [address], 06/24/2021 11:20:36 06/24/19 22 06/24/2021 urina lysis , dipst ick Protein (reference range: negative mg/dl) Negati ve Not Available [address], [address], 06/24/2021 11:20:36 06/24/19 22 06/24/2021 urina lysis , dipst ick pH (reference range: 5-7) 7.0 Not Available [address], [address], 06/24/2021 11:20:36 06/24/19 22 06/24/2021 urina lysis , dipst ick Blood (reference range: negative Arnaldo/? ? ?l) Negati ve Not Available [address], [address], 06/24/2021 11:20:36 06/24/19 22 06/24/2021 urina lysis , dipst ick Specific [place] (reference range: 1.005-1.030) 1.025 Not Available [address], [address], 06/24/2021 11:20:36 06/24/19 22 06/24/2021 urina lysis , dipst ick Ketone (reference range: negative mg/dl) Negati ve Not Available [address], [address], 06/24/2021 11:20:36 06/24/19 22 06/24/2021 urina lysis , dipst ick Bilirubin (reference range: negative mg/dl) Negati ve Not Available [address], [address], 06/24/2021 11:20:36 06/24/19 22 06/24/2021 urina lysis , dipst ick Glucose (reference range: negative mg/dl) Negati ve Not Available [address], [address], 06/24/2021 11:20:36 06/24/19 22 06/24/2021 urina lysis , dipst ick Appearance Clear Not Available [address], [place], [address], 06/24/2021 11:20:36 06/24/19 22 06/24/2021 urina lysis , dipst ick Color Yellow Not Available [facility], [place] [address], [place], [address], 06/24/2021 11:20:36 02/19/20 21 02/17/2021 XR, shoul jesus No observ ation record ed. [id number] Not Available 07/13/2022 01:00:01 03/30/20 21 03/16/2021 CT, head, w/o contr ast No observ ation record ed. [id number] Not Available 07/13/2022 01:00:01 03/30/20 21 03/16/2021 CT, cervi rodríguez spine , w/o contr ast No observ ation record ed. [id number] Not Available 07/13/2022 01:00:01 03/30/20 21 03/16/2021 XR, chest , 2 view No observ ation record ed. [id number] Not Available 07/13/2022 01:00:01 03/30/20 21 03/16/2021 XR, shoul jesus No observ ation record ed. [id number] Not Available 07/13/2022 01:00:01 06/23/19 22 06/17/2021 CT, abdom en + pelvi s, w/o contr ast No observ ation record ed. [id number] Not Available 07/13/2022 01:00:01 06/24/19 22 06/24/2021 US, bladd er No observ ation record ed. [id number] [facility] [address], [address], [place], [address], 07/13/2022 01:00:01 Result Notes None recorded. 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 Procedures Surgical History None recorded. Imaging Results Imaging Date Name Status LastModified by Organiz ation Details LastModified Time 02/17/2021 XR, shoulder completed [id number] Information not available 07/13/2022 01:00:01 03/16/2021 CT, head, w/o contrast completed [id number] Information not available 07/13/2022 01:00:01 03/16/2021 CT, cervical spine, w/o contrast completed [id number] Information not available 07/13/2022 01:00:01 03/16/2021 XR, chest, 2 view completed [id number] Information not available 07/13/2022 01:00:01 03/16/2021 XR, shoulder completed [id number] Information not available 07/13/2022 01:00:01 06/24/2021 US, bladder completed [id number] [facility] [address], [address], [place], [address], 07/13/2022 01:00:01 06/17/2021 CT, abdomen + pelvis, w/o contrast completed [id number] Information not available 07/13/2022 01:00:01 Procedure Notes None recorded. Medical Equipment None Reported. Medications Name Sig Start Date Stop Date Status Note LastModified by Organization Details LastModified Time multivitami n tablet TK 1 T PO QD 05/12 completed Not Available Not Available Not Available cyclobenzap rine 10 mg tablet TAKE 1 TABLET BY MOUTH EVERY 8 HOURS active Not Available Not Available No t Available amoxicillin 500 mg capsule TAKE 2 CAPSULES BY MOUTH TWICE DAILY active Not Available Not Available No t Available fluconazole 100 mg tablet 05/12 completed Not Available Not Available Not Available bupropion HCl SR 150 mg tablet,12 hr sustained-r elease TK 1 T PO BID 05/12 completed Not Available Not Available Not Available prednisone 10 mg tablet 05/13 completed Not Available Not Available Not Available doxycycline hyclate 100 mg capsule TAKE ONE CAPSULE BY MOUTH TWICE DAILY FOR 14 DAYS active Not Available Not Available No t Available azithromyci n 250 mg tablet 05/12 completed Not Available Not Available Not Available ibuprofen 800 mg tablet TAKE 1 TABLET BY MOUTH EVERY 8 HOURS WITH FOOD NEEDED active Not Available Not Available No t Available fluconazole 150 mg tablet TK 1 T PO D PRN 05/12 completed Not Available Not Available Not Available clarithromy felicity 500 mg tablet TAKE 1 TABLET BY MOUTH TWICE DAILY active Not Available Not Available No t Available hydrocodone 5 mg-acetamin ophen 325 mg tablet TAKE 1 TABLET BY MOUTH EVERY 6 HOURS NEEDED 05/13 completed Not Available Not Available Not Available metronidazo le 0.75 % (37.5 mg/5 gram) vaginal gel Insert 1 applicato rful every day by vaginal route at bedtime. 06/24 completed Not Available Not Available Not Available penicillin V potassium 500 mg tablet TK 1 T PO BID 05/12 completed Not Available Not Available Not Available metronidazo le 500 mg tablet TAKE 1 TABLET BY MOUTH TWICE DAILY FOR 14 DAYS active Not Available Not Available No t Available ciprofloxac in 500 mg tablet Take 1 tablet every 12 hours by oral route. active Not Available Not Available No t Available acetaminoph en 500 mg tablet active Not Available Not Available Not Available prednisone 10 mg tablets in a dose pack Take 1 tab by mouth, 3 times a day for 3 daysTake 1 tab by mouth 2 times a day for 2 daysTake 1 tab by mouth once a day for 1 day 05/13 completed Not Available Not Available Not Available Deep Sea Nasal 0.65 % spray aerosol INHALE 1 SPRAY IEN BID PRN 05/12 completed Not Available Not Available Not Available Kenalog 10 mg/mL suspension for injection In office injection administe red by the provider active [facility]: 0003- [phone]- [phone] Not Available Not Available Not Available prednisone 50 mg tablet TAKE 1 TABLET BY MOUTH EVERY MORNING active Not Available Not Available No t Available omeprazole 20 mg capsule,del ayed release TAKE ONE CAPSULE BY MOUTH TWICE DAILY active Not Available Not Available No t Available norethindro ne acetate 1 mg-ethinyl estradiol 20 mcg tablet TAKE 1 TABLET BY MOUTH DAILY active Not Available Not Available No t Available ergocalcife rol (vitamin D2) 1,250 mcg (50,000 unit) capsule TAKE 1 CAPSULE BY MOUTH EVERY WEEK DIRECTED active Not Available Not Available No t Available azelastine 137 mcg (0.1 %) nasal spray 05/12 completed Not Available Not Available Not Available ibuprofen 600 mg tablet TAKE 1 TABLET BY MOUTH EVERY 6 HOURS WITH FOOD NEEDED active Not Available Not Available No t Available polyethylen e glycol 3350 17 gram/dose oral powder MIX 1 CAPFUL IN LIQUID AND DRINK EVERY DAY active Not Available Not Available No t Available methylpredn isolone 4 mg tablets in a dose pack 05/12 completed Not Available Not Available Not Available norethindro ne (contracept ez) 0.35 mg tablet TK 1 T PO QD active Not Available Not Available No t Available fluticasone propionate 50 mcg/actuati on nasal spray,suspe nsion 05/12 completed Not Available Not Available Not Available medroxyprog esterone 150 mg/mL intramuscul ar suspension ADMINISTE R 1 ML IN THE MUSCLE EVERY 3 MONTHS active Not Available Not Available No t Available naproxen 500 mg tablet TAKE 1 TABLET BY MOUTH TWICE DAILY active Not Available Not Available No t Available oxycodone 5 mg tablet active Not Available Not Available No t Available Depo-[place] a 150 mg/mL intramuscul ar syringe Inject 1 mL every 3 months by intramusc ular route. 06/24 completed Not Available Not Available Not Available metaxalone 800 mg tablet TAKE 1 TABLET BY MOUTH THREE TIMES DAILY NEEDED FOR BACK PAIN active Not Available Not Available No t Available lidocaine (PF) 10 mg/mL (1 %) injection solution In office injection administe red by the provider 06/[address] [facility]: [phone]- [phone] Not Available Not Available Not Available lidocaine 2 % mucosal jelly in applicator injected into urethra before procedure active Not Available Not Available No t Available Vitals Date Recorded Body mass index (BMI) Body mass index (BMI) Body mass index (BMI) Body mass index (BMI) Body height Body height Body height Body height Body height Oxygen saturation Oxygen saturation in Arterial blood by Pulse oximetry Oxygen saturation Oxygen saturation in Arterial blood by Pulse oximetry Heart rate Heart rate Body temperature Body temperature Body weight Body weight Body weight Body weight Systolic blood pressure Diastolic blood pressure Systolic blood pressure Diastolic blood pressure Provider Name and Address Organization Details Last Updated DateTime 3 19.4 kg/m2 19.4 kg/m2 19.4 kg/m2 19.4 kg/m2 167.64 cm 167.64 cm 167.64 cm 167.64 cm 167.64 cm 98 % 98 % 99 % 99 % 93 /min 78 /min 97.8 [degF] 98.1 [degF] 83272.0 8 g 58889.0 8 g 88886.0 8 g 13045.0 8 g 118 mm[Hg] 74 mm[Hg] 150 mm[Hg] 95 mm[Hg] Not Available [facility] 00:48:00 Social History Question Answer Notes LastModified by Organizat ion Details LastModified Time Tobacco Smoking Status Current Every Day Smoker Not Available [facility] 07/13/2022 00:43:39 What Is Your Level Of Alcohol Consumption? Occasional [id number] Information not available 07/13/2022 What Is Your Level Of Caffeine Consumption? Heavy MIGRATION.[id number] 0030 Information not available 07/13/2022 In The 14 Days Before Symptom Onset, Have You Had Close Contact With A Laboratory-confir med COVID-19 While That Case Was Ill? No MIGRATION.[id number] 3369 Information not available 07/13/2022 In The 14 Days Before Symptom Onset, Have You Had Close Contact With A Person Who Is Under Investigation For COVID-19 While That Person Was Ill? No MIGRATION.[id number] 7868 Information not available 07/13/2022 What Type Of Diet Are You Following? REGULAR MIGRATION.[id number] 9325 Information not available 07/13/2022 What Is The Highest Grade Or Level Of School You Have Completed Or The Highest Degree You Have Received? 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 No MIGRATION.907481 4165 Information not available 07/13/2022 What Is The Fluoride Status Of Your Home? Unknown MIGRATION.123627 8629 Information not available 07/13/2022 Are There Any Guns Present In Your Home? No MIGRATION.523566 9520 Information not available 07/13/2022 Do You Use Insect Repellent Routinely? No MIGRATION.769594 6793 Information not available 07/13/2022 Where Do You Live? Apartment MIGRATION.325279 1373 Information not available 07/13/2022 What Was The Date Of Your Most Recent Tobacco Screening? 06/24/2021 MIGRATION.147563 1476 Information not available 07/13/2022 Do You Have Any Pets? No MIGRATION.599581 1738 Information not available 07/13/2022 What Is Your Relationship Status? MIGRATION.125139 5626 Information not available 07/13/2022 Do You Use Your Seat Belt Or Car Seat Routinely? Yes MIGRATION.095340 3523 Information not available 07/13/2022 Do You Have Smoke And Carbon Monoxide Detectors In Your Home? No MIGRATION.527669 5425 Information not available 07/13/2022 Are You Passively Exposed To Smoke? Yes MIGRATION.066099 1472 Information not available 07/13/2022 Are There Any Smokers In Your House? No MIGRATION.818388 1577 Information not available 07/13/2022 How Much Tobacco Do You Smoke? 0.5 PPD MIGRATION.823052 6837 Information not available 07/13/2022 Do You Feel Stressed (tense, Restless, Nervous, Or Anxious, Or Unable To Sleep At Night)? [id number] MIGRATION.258599 7679 Information not available 07/13/2022 Have You Recently Traveled Abroad? No MIGRATION.809522 3426 Information not available 07/13/2022 Do You Have Any Dietary Restrictions? No MIGRATION.443254 7813 Information not available 07/13/2022 Sex: Unknown Functional Status Question Answer Note LastModified by Organizat ion Details LastModified Time What is your exercise level? Occasional [id number] 26 Information not available 07/13/2022 Mental Status None recorded. Family History Relationship Description Onset Age of this Age Resolved Age Notes LastModified by Organization Details LastModified Time Mother Family history of malignant neoplasm [id number] Not available 07/13/2022 00:45:20 Father Hypertensive disorder [id number] Not available 07/13/2022 00:45:20 Medical History No medical history recorded. Gynecological HistoryNo gynecological history recorded. Obstetrics History GPAL:G 4 P 3 0 1 3 Type Value Full Term 3 Spontaneous 1 Living 3 Total 4 Past Encounters Encounter ID Performer Location Encounter Start Date Encounter Closed Date Diagnosis/Indication Diagnosis SNOMED-CT Code Diagnosis ICD10 Code Diagnosis Note [id number] _SUSHMA_M IGRATION_ DEFAULT_1 _1 , 09/07/2020 00:00:00 09/07/2020 16:29:55 [id number] [facility] [address] [place] [address] 02/22/2021 00:00:00 02/22/2021 11:39:23 [id number] [facility] [address] [address] 03/23/2021 00:00:00 03/23/2021 09:38:23 [id number] [facility] [address] [address] 04/06/2021 00:00:00 04/06/2021 09:17:16 [id number] [facility] Internal Med [facility] [address] [place] [address], [facility] [address] [place] [address] 05/13/2021 00:00:00 05/13/2021 18:07:40 [id number] [facility] Urology [address], [address] [place] [address] 06/24/2021 00:00:00 06/24/2021 12:03:06 Health Concerns Section Related Observation LastModified by Organization Detai ls LastModified Time None Recorded Concern Status LastModified by Organization Details LastModified Time None Recorded Advance Directives Directive None Recorded Payers None recorded. OBGyn Episode No OBEpisode recorded.
--- OUTSIDE RECORDS SUMMARY | 2024-06-18 13:22 | XMS_ITS | Clinical Summary ---
Author Organization [facility] Address [facility] [place] [address] Care Team Providers Care Inside Trucker Name Role Phone No, Physician Primary Care Provider [phone] Allergies No known active allergies Medications albuterol HFA (PROVENTIL HFA,VENTOLIN HFA,PROAIR HFA) 90 mcg/actuation inhaler Ventolin HFA 90 mcg/actuatio n aerosol inhaler Active ondansetron ODT (ZOFRAN-ODT) 4 mg disintegrating tablet Dissolve 1 tablet for mild to moderate nausea or vomiting or 2 tablets for severe nausea or vomiting oral twice a day as needed. 15 tablet 9 Active norethindrone (MICRONOR) 0.35 mg tabletIndications:P regnancy Contraception Take 1 tablet (0.35 mg total) by mouth daily for 28 days 28 tablet 0 Active oxyCODONE (ROXICODONE) 5 mg immediate release tabletIndications:P ain Take 1 tablet (5 mg total) by mouth every 6 (six) hours as needed (2nd line for pain) 8 tablet 2 Active acetaminophen (TYLENOL) 500 mg tablet Take 1-2 tablets (500-1,000 mg total) by mouth every 6 (six) hours as needed for pain (1 tablet for mild to moderate pain. 2 tablets for severe pain) 20 tablet 2 Active naproxen (NAPROSYN) 500 mg tablet Take 1 tablet (500 mg total) by mouth 2 (two) times a day as needed for pain Take with food. 30 tablet 4 Active Active Problems Problem Noted Date Diagnosed Date Chronic pelvic pain in female 07/19/2019 Overview (07/19/2019): Clinic 07/19/2019 -Patient reports chronic pelvic pain over the past 5 years with acutely worsening stabbing pain, most commonly on the left side -Patient with a history of ovarian cysts -Does endorse pain with intercourse and defecation that may be consistent with endometriosis -Discussed that the only way to confirm endometriosis as the diagnosis is diagnostic laparoscopy, but that we are not at that point yet -Patient was prescribed OCPs, instructed her not to take these given age > 35 and smoker -Continue Naproxen -Patient to continue Doxycycline and Flagyl from ED visit; although GC/CT/trich were negative, pain may be 2/2 inflammation therefore would not be harmful to continue -Discussed options of possible Leuprolide or Orlissa to see if this improves her pain, but patient would like to take this very slowly and not have medications thrown at her -Patient strongly declined pelvic exam today -Will plan on TVUS in 3-4 weeks followed by pelvic exam if she can tolerat -Will likely require PFPT however patient would like to see the TVUS results first -If negative TVUS and PFPT not helpful, would recommend a trial of Leuprolide or Orlissa to see if this improves symptoms that may suggest an endometriosis diagnosis -Will defer pap at this time but can consider at next visit Asthma 03/15/2018 Bacterial vaginosis 03/15/2018 Blood in urine 03/15/2018 Chest pain 03/15/2018 Constipation 03/15/2018 Dyspnea 03/15/2018 Goiter 03/15/2018 Irritable bowel syndrome 03/15/2018 Lower abdominal pain 03/15/2018 Candidiasis of vagina 02/15/2017 Depressive disorder 02/15/2017 Smoker 02/15/2017 Surgical History Surgery Date Site/Laterality Comments FOOT SURGERY Medical History Medical History Date Comments Asthma IBS (irritable bowel syndrome) Family History Medical History Relation Name Comments Prostate cancer Father Cancer Mother Relation Name Status Comments Father Mother Social History Tobacco Use Types Packs/Day Years Used Date Smoking Tobacco: Every Day Cigarettes Smokeless Tobacco: Never Alcohol Use Standard Drinks/Week Comments Yes 0 (1 standard drink = 0.6 oz pur e alcohol) occassionally Personal Safety Answer Date Recorded Have you ever been in or are you currently in a harmful physical or emotional relationship or is someone making you feel afraid or unsafe? 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 Gender Identity Not on file Sexual Orientation Not on file Obstetrics History Para Term AB IAB SAB Ectopic Multiple Livin g Live Births 4 3 3 1 3 3 Date Outcome GA Total Labor Labor/2nd/3rd Weight Sex Type Anes PTL Evelin A1 A5 Name Clin Term Vag-Spo nt Term Vag-Spo nt Term Vag-Spo nt AB Last Filed Vital Signs Vital Sign Reading Time Taken Comments Blood Pressure 152/87 01/31/2024 5:30 PM CDT Pulse 67 01/31/2024 5:30 PM CDT Temperature 36.8 ??C (98.3 ??F) 01/31/2024 11:57 AM C DT Respiratory Rate 16 01/31/2024 5:30 PM CDT Oxygen Saturation 100% 01/31/2024 5:30 PM CDT Inhaled Oxygen Concentration - - Weight 49.9 kg (110 lb) 01/31/2024 11:57 AM CDT Height 167.6 cm (5' 6 ) 01/31/2024 11:57 AM CDT Body Mass Index 17.75 01/31/2024 11:57 AM CDT Plan of Treatment Health Maintenance Due Date Last Done Comments Breast Cancer Screening-Mammogram 1977 Cervical Cancer Screening 1977 Colon Cancer Screening-Colonoscopy 1977 Depression Screening 1977 Pneumococcal vaccine <65 (1 of 2 - PCV) 11/13/1983 Hepatitis B Screening 11/13/1995 Regular Well Visit/Exam 18-64 11/13/1995 Influenza Vaccine (#1) 2024 DTaP/Tdap/Td Vaccine (3 - Td or Tdap) 03/10/2025 03/10/2015, 03/04/1994, 03/23/1984 Hepatitis C Screening Completed 01/05/2019 HPV Vaccines Aged Out No longer eligi ble based on patient's age to complete this topic Insurance [address] CHOICE PLUS [address] CHOICE PLUS Care Teams Inside Trucker Relationship Specialty Start Date End Date No, Physician PCP - General 01/31/18
--- OUTSIDE RECORDS SUMMARY | 2024-06-18 13:22 | XMS_ITS | Referral Summary ---
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
--- OUTSIDE RECORDS SUMMARY | 2024-06-18 13:23 | XMS_ITS | CONTINUITY OF CARE DOCUMENT ---
Author Name raza gregoryramila Address Unknown Organization [facility] Address [address] [place] [address] Phone [phone] Care Team Providers Care Heavy Duty Mechanic Farm Equipment Name Role Phone Farhan Gonzalez MD Unavailable MELCHOR MORALES MD Unavailable MELCHOR MORALES MD Unavailable PROBLEMS Condition Status Date Provider Notes Dizziness [facility] Payer name Policy type / Coverage type [place] red republic[employer] ID [facility] [id number] Other [id number] HISTORY OF PROCEDURES Procedure Date Procedure Name Provider Procedure Notes S tatus Adalbertoter, 24 or 48 Farhan Gonzalez MD c ompleted
--- OUTSIDE RECORDS SUMMARY | 2024-06-18 13:23 | XMS_ITS | Data Portability ---
Author Organization [facility] Lucía Vogel Address [address] [place] [address] Care Team Providers Care Herbarium Worker Name Role Phone VALENTÍN PRABHAKAR Sliver Former [phone] Assessment No assessment recorded. Plan of Treatment Reminders Order Date Submit Date Provider Last Modified By Organization Details Last Modified Time Details Appointments None recorded . Lab urinalys is, dipstick 2017 018 [email or web address] In-Office Order, Internal Use Only DO Not Attach Compendium DO Not Attach Compendium, Do Not Delete/merge, [id number] 8 17:39:07 CT + NG + TV, DNA, urine/sw ab 2017 018 SUSHMA [facility], [address] Debra Sharif, [address], [address], 8 14:14:24 urinalys is, dipstick 2018 019 In-Office Order, Internal Use Only DO Not Attach Compendium DO Not Attach Compendium, Do Not Delete/merge, [id number] 9 16:28:44 bacteria l vaginosi s panel, vaginal 2018 019 SUSHMA [facility], [address] [place] [address], [address], [place], [address], 9 14:07:40 pregnanc y test, urine 2018 019 In-Office Order, Internal Use Only DO Not Attach Compendium DO Not Attach Compendium, Do Not Delete/merge, [id number] 9 16:28:44 pregnanc y test, urine 2018 019 [email or web address] In-Office Order, Internal Use Only DO Not Attach Compendium DO Not Attach Compendium, Do Not Delete/merge, [id number] 9 17:02:31 vaginal pathogen s panel, MITESH+prob e, vaginal fluid 2021 022 [facility], [address]if, [address], [place], [address], 2 08:09:24 pap, IG + reflex HPV 2021 022 [facility], [address] Sharif, [address], [place], [address], 2 03:07:35 vaginal pathogen s panel, MITESH+prob e, vaginal fluid 2023 024 [facility], [address] De[address] Sharif, [address], [place], [address], 4 06:20:19 cytology report, thin prep, smear or scraping , cervical or vaginal 2023 024 [facility], [address] De[address] Sharif, [address], [place], [address], 4 17:09:19 Referral general surgeon referral 2017 018 kimmie Godfrey MD, [address] [facility], [address], [place], [address], 8 17:39:18 Procedures None recorded . Surgeries None recorded . Imaging MAMMO, screenin g, bilatera l 2018 019 [email or web address] [facility] ([facility]), [address] [facility], [place], [address], 9 16:28:44 MAMMO, screenin g, bilatera l 2021 022 [facility] ([facility]), [address] [place], [address], 3 12:40:10 US, pelvis, transabd ominal + transvag inal 2021 022 [facility] ([facility]), [address] [place], [address], 3 12:40:10 MAMMO, diagnost ic, digital, bilatera l 2023 024 [facility] ([facility]), [address] [place], [address], 5 13:52:25 US, breast, bilatera l - 3.5cmx4c m mass on R breast, Upper Outer quadrant 2023 024 [facility] ([facility]), [address] [place], [address], 5 13:52:25 US, pelvis, transabd ominal + transvag inal [address] ([facility]), [address] [place], [address], 5 14:08:24 Medication Orders Lo Loestrin Fe 1 mg-10 mcg (24)/10 mcg (2) tablet 2017 018 [facility] #[id number], [address] [place], [place], [id number], 9 11:39:13 calcium 600 mg (as carbonat e)-vitam in D3 20 mcg (800 unit) tablet 2017 018 [facility] #69885, [address] [place], [id number], 9 11:39:01 multivit hendrickson tablet 2017 018 [facility] #[id number], [address] [place], [place], [id number], 2 09:39:19 multivit hendrickson tablet 2018 019 [facility] #72449, [address] [place], [place], [id number], 2 09:39:19 Calcium with Vitamin D 600 mg-10 mcg (400 unit) tablet [email or web address]57786, [address] [place], [place], [id number], 2 10:03:59 omeprazo le 40 mg capsule, delayed release 2018 019 [facility] #13031, [address] [place], [place], [id number], 2 09:39:53 norethin drone (contrac eptive) 0.35 mg tablet 2018 [email or web address], [address] [place], [place], [id number], 4 15:18:45 medroxyp rogester one 150 mg/mL intramus cular suspensi on 2018 019 [facility] #12887, [address] [place], [place], [id number], 2 09:38:21 Slynd 4 mg (28) tablet 2021 022 [facility], [address] [place] [address], [address], 3 14:14:50 metronid azole 0.75 % (37.5 mg/5 gram) vaginal gel [address] [facility] #75470, [address] [place], [place], [id number], 4 15:51:20 ibuprofe n 800 mg tablet [address] [facility] #35726, [address] [place], [place], [id number], 4 15:51:21 Patient TargetsNo targets recorded. Patient Instructions Encounter Date Encounter Id Patient Instructions Last Modified By Organization Details Last Modified Time 11/28/2017 [id number] inguinal hernia: care instructions [email or web address] Not available 11/28/2017 17:39:07 02/05/2019 [id number] Well Visit, Ages 18 to 65: Care Instructions Not available 02/05/2019 12:06:45 Quitting Tobacco : Care Instructions Not available 02/05/2019 12:03:33 gastroesophageal reflux disease (GERD): care instructions Not available 02/05/2019 12:16:35 04/29/2022 [id number] Quitting Tobacco : Care Instructions Not available 04/29/2022 10:12:34 Well Visit, Ages 18 to 65: Care Instructions Not available 04/29/2022 10:12:19 learning about breast cancer screening Not available 04/29/2022 10:12:25 SANTY Gan Discussed with Emily Prabhakar PA-C Not available 04/29/2022 16:20:04 02/05/2024 [id number] breast self-exam : care instructions [email or web address] Not available 02/05/2024 15:51:12 learning about cervical cancer screening [email or web address] Not available 02/05/2024 15:51:12 eating healthy foods: care instructions [email or web address] Not available 02/05/2024 15:51:12 Reason for Referral General Surgeon Referral for Right inguinal hernia Referring Physician: Saroj Salazar, DIGITAL MEDIA MANAGER, Encounter Date: 11/28/2017 Results Created Date Observation Date Name Description Value Unit Range Abnormal Flag Note LastModifiedBy Organization Detail LastModifiedTime 02/16/20 19 02/15/2019 pregn breanna test, urine HCG negati ve Not Available In-Office Order Internal Use Only DO Not Attach Compendium DO Not Attach Compendium, Do Not Delete/merge, [id number] 02/15/2019 14:58:35 02/06/2002/05/2019 pregn breanna test, urine HCG negati ve Not Available In-Office Order Internal Use Only DO Not Attach Compendium DO Not Attach Compendium, Do Not Delete/merge, [id number] 02/05/2019 11:22:24 02/06/2002/05/2019 urina lysis , dipst ick Leukocytes Negati ve Not Available In-Office Order Internal Use Only DO Not Attach Compendium DO Not Attach Compendium, Do Not Delete/merge, [id number] 02/05/2019 11:22:22 02/06/2002/05/2019 urina lysis , dipst ick Nitrite negati ve Not Available In-Office Order Internal Use Only DO Not Attach Compendium DO Not Attach Compendium, Do Not Delete/merge, [id number] 02/05/2019 11:22:22 02/06/2002/05/2019 urina lysis , dipst ick Urobilinogen .2 Not Available In-Of fice Order Internal Use Only DO Not Attach Compendium DO Not Attach Compendium, Do Not Delete/merge, [id number] 02/05/2019 11:22:22 02/06/2002/05/2019 urina lysis , dipst ick Protein Negati ve Not Available In-Office Order Internal Use Only DO Not Attach Compendium DO Not Attach Compendium, Do Not Delete/merge, [id number] 02/05/2019 11:22:22 02/06/2002/05/2019 urina lysis , dipst ick pH 5.5 Not Available In-Office Order Internal Use Only DO Not Attach Compendium DO Not Attach Compendium, Do Not Delete/merge, [id number] 02/05/2019 11:22:22 02/06/2002/05/2019 urina lysis , dipst ick Blood Small Not Available In-Office Order Internal Use Only DO Not Attach Compendium DO Not Attach Compendium, Do Not Delete/merge, 02/05/2019 11:22:22 02/06/20 19 02/05/2019 urina lysis , dipst ick Specific Mac[place] 1.025 Not Available In-Off ice Order Internal Use Only DO Not Attach Compendium DO Not Attach Compendium, Do Not Delete/merge, [id number] 02/05/2019 11:22:22 02/06/20 19 02/05/2019 urina lysis , dipst ick Ketone Negati ve Not Available In-Office Order Internal Use Only DO Not Attach Compendium DO Not Attach Compendium, Do Not Delete/merge, 02/05/2019 11:22:22 02/06/20 19 02/05/2019 urina lysis , dipst ick Bilirubin Negati ve Not Available In-Office Order Internal Use Only DO Not Attach Compendium DO Not Attach Compendium, Do Not Delete/merge, 02/05/2019 11:22:22 02/06/20 19 02/05/2019 urina lysis , dipst ick Glucose Negati ve Not Available In-Office Order Internal Use Only DO Not Attach Compendium DO Not Attach Compendium, Do Not Delete/merge, 02/05/2019 11:22:22 11/29/19 18 11/28/2017 urina lysis , dipst ick Leukocytes Negati ve Not Available In-Office Order Internal Use Only DO Not Attach Compendium DO Not Attach Compendium, Do Not Delete/merge, [id number] 11/28/2017 17:25:16 11/29/19 18 11/28/2017 urina lysis , dipst ick Nitrite negati ve Not Available In-Office Order Internal Use Only DO Not Attach Compendium DO Not Attach Compendium, Do Not Delete/merge, [id number] 11/28/2017 17:25:16 11/29/19 18 11/28/2017 urina lysis , dipst ick Urobilinogen .2 Not Available In-Of fice Order Internal Use Only DO Not Attach Compendium DO Not Attach Compendium, Do Not Delete/merge, 11/28/2017 17:25:16 11/29/19 18 11/28/2017 urina lysis , dipst ick Protein 30 Not Available In-Office Order Internal Use Only DO Not Attach Compendium DO Not Attach Compendium, Do Not Delete/merge, 11/28/2017 17:25:16 11/29/19 18 11/28/2017 urina lysis , dipst ick pH 5.0 Not Available In-Office Order Internal Use Only DO Not Attach Compendium DO Not Attach Compendium, Do Not Delete/merge, 11/28/2017 17:25:16 11/29/19 18 11/28/2017 urina lysis , dipst ick Blood Large Not Available In-Office Order Internal Use Only DO Not Attach Compendium DO Not Attach Compendium, Do Not Delete/merge, 11/28/2017 17:25:16 11/29/19 18 11/28/2017 urina lysis , dipst ick Specific Macon 1.025 Not Available In-Off ice Order Internal Use Only DO Not Attach Compendium DO Not Attach Compendium, Do Not Delete/merge, 11/28/2017 17:25:16 11/29/19 18 11/28/2017 urina lysis , dipst ick Ketone Negati ve Not Available In-Office Order Internal Use Only DO Not Attach Compendium DO Not Attach Compendium, Do Not Delete/merge, 11/28/2017 17:25:16 11/29/19 18 11/28/2017 urina lysis , dipst ick Bilirubin Small Not Available In-Offic e Order Internal Use Only DO Not Attach Compendium DO Not Attach Compendium, Do Not Delete/merge, 11/28/2017 17:25:16 11/29/19 18 11/28/2017 urina lysis , dipst ick Glucose Negati ve Not Available In-Office Order Internal Use Only DO Not Attach Compendium DO Not Attach Compendium, Do Not Delete/merge, 11/28/2017 17:25:16 11/30/19 18 12/01/2017 CT + NG + TV, DNA, urine /swab chlamydia by MITESH NEGATI VE negati ve Not Available [facility] ([facility]) [address] [place], [address], 12/05/2017 14:14:23 11/30/19 18 12/01/2017 CT + NG + TV, DNA, urine /swab gonococcus by MITESH NEGATI VE negati ve Not Available [facility] ([facility]) [address] [place], [address], 12/05/2017 14:14:23 11/30/19 18 12/01/2017 CT + NG + TV, DNA, urine /swab trich vag by MITESH NEGATI VE negati ve Not Available [facility] ([facility]) [address] [place] [address], [address], 12/05/2017 14:14:23 02/07/20 19 02/08/2019 bacte rial vagin osis panel , vagin al chlamydia trachomatis, MITESH NEGATI VE negati ve Not Available [facility] ([facility]) [address] [place], [address], 02/10/2019 14:07:40 02/07/20 19 02/08/2019 bacte rial vagin osis panel , vagin al neisseria gonorrhoeae, MITESH NEGATI VE negati ve Not Available [facility] ([facility]) [address] [place], [address], 02/10/2019 14:07:40 02/07/20 19 02/09/2019 bacte rial vagin osis panel , vagin al atopobium vaginae MODERA TE - 1 score Not Available [facility] ([facility]) [address] [place], [address], 02/10/2019 14:07:40 02/07/20 19 02/09/2019 bacte rial vagin osis panel , vagin al bvab 2 LOW - 0 score Not Available [facility] ([facility]) [address] [facility], [place], [address], 02/10/2019 14:07:40 02/07/2002/09/2019 bacte rial vagin osis panel , vagin al megasphaera 1 LOW - 0 score Calcu late total score by salomon spivey the 3 indiv idual bacte rial vagin osis (BV) marke r score s toget her. Total score is inter prete d as follo ws: Total score 0-1: Indic ates the absen ce of BV. Total score 2: Indet ermin ate for BV. Addit ional clini rodríguez data shoul d be evalu ated to estab zaheer a diagn osis. Total score 3-6: Indic ates the prese nce of BV. This test was devel oped and its perfo rmanc e yadira cteri stics deter mined by [facility]. It has not been clear ed or appro eldon by the Food and Drug Admin istra tion. The FDA has deter mined that such clear ance or appro alexei is not neces chasity. Not Available [facility] ([facility]) [address] [facility], [place], [address], 02/10/2019 14:07:40 02/07/20 19 02/09/2019 bacte rial vagin osis panel , vagin al chaz albicans, MITESH NEGATI VE negati ve Not Available [facility] ([facility]) [address] [facility], [place], [address], 02/10/2019 14:07:40 02/07/2002/09/2019 bacte rial vagin osis panel , vagin al chaz glabrata, MITESH NEGATI VE negati ve This test was devel oped and its perfo rmanc e yadira cteri stics deter mined by [facility]. It has not been clear ed or appro eldon by the Food and Drug Admin istra tion. The FDA has deter mined that such clear ance or appro alexei is not neces chasity. Not Available [facility] ([facility]) [address] [facility], [place], [address], 02/10/2019 14:07:40 02/07/2002/09/2019 bacte rial vagin osis panel , vagin al trich vag by MITESH NEGATI VE negati ve Not Available [facility] ([facility]) [address] [place], [address], 02/10/2019 14:07:40 02/07/20 19 02/10/2019 bacte rial vagin osis panel , vagin al hsv 1 MITESH NEGATI VE negati ve Not Available [facility] ([facility]) [address] [place], [address], 02/10/2019 14:07:40 02/07/20 19 02/10/2019 bacte rial vagin osis panel , vagin al hsv 2 MITESH NEGATI VE negati ve Not Available [facility] ([facility]) [address] [facility], [place], [address], 02/10/2019 14:07:40 04/29/20 22 05/02/2022 NUSWA B VAGIN ITIS PLUS (VG+) atopobium vaginae Low - 0 score Not Available [facility] ([facility]) [address] [place], [address], 05/02/2022 08:09:24 04/29/20 22 05/02/2022 NUSWA B VAGIN ITIS PLUS (VG+) bvab 2 Low - 0 score Not Available [facility] ([facility]) [address] [place], [address], 05/02/2022 08:09:24 04/29/20 22 05/02/2022 NUSWA B VAGIN ITIS PLUS (VG+) megasphaera 1 Low - 0 score Calcu late total score by salomon spivey the 3 indiv idual bacte rial vagin osis (BV) saroje r score s toget her. Total score is inter prete d as follo ws: Total score 0-1: Indic ates the absen ce of BV. Total score 2: Indet ermin ate for BV. Addit ional clini rodríguez data shoul d be evalu ated to estab zaheer a diagn osis. Total score 3-6: Indic ates the prese nce of BV. This test was devel oped and its perfo rmanc e yadira cteri stics deter mined by [facility]. It has not been clear ed or appro eldon by the Food and Drug Admin istra tion. Not Available [facility] ([facility]) [address] [place], [address], 05/02/2022 08:09:24 04/29/20 22 05/02/2022 NUSWA B VAGIN ITIS PLUS (VG+) chaz albicans, MITESH Negati ve negati ve Not Available [facility] ([facility]) [address] [place], [address], 05/02/2022 08:09:24 04/29/20 22 05/02/2022 NUSWA B VAGIN ITIS PLUS (VG+) chaz glabrata, MITESH Negati ve negati ve Not Available [facility] ([facility]) [address] [place], [address], 05/02/2022 08:09:24 04/29/20 22 05/02/2022 NUSWA B VAGIN ITIS PLUS (VG+) trich vag by MITESH Negati ve negati ve Not Available [facility] ([facility]) [address] [place], [address], 05/02/2022 08:09:24 04/29/20 22 05/02/2022 NUSWA B VAGIN ITIS PLUS (VG+) chlamydia trachomatis, MITESH Negati ve negati ve Not Available [facility] ([facility]) [address] [place], [address], 05/02/2022 08:09:24 04/29/20 22 05/02/2022 NUSWA B VAGIN ITIS PLUS (VG+) neisseria gonorrhoeae, MITESH Negati ve negati ve Not Available [facility] ([facility]) [address] [facility], [place], [address], 05/02/2022 08:09:24 04/29/20 22 05/02/2022 IGP,A PTIMA HPV,A GE GDLN age gdln acog testing 30-65 Not Available [facility] ([facility]) [address] [place], [address], 05/12/2022 03:07:35 04/29/20 22 05/11/2022 HPV GENOT YPES 16/18 ,45 HPV genotype 16 Negati ve negati ve Not Available [facility] ([facility]) [address] [place], [address], 05/12/2022 03:07:37 04/29/20 22 05/11/2022 HPV GENOT YPES 16/18 ,45 HPV genotype 18,45 Negati ve negati ve Not Available [facility] ([facility]) [address] [place], [address], 05/12/2022 03:07:37 04/29/20 22 05/03/2022 IGP, APTIM A HPV, RFX 16/18 ,45 HPV aptima Positi ve negati ve abnormal This nucle ic acid ampli ficat ion test detec ts fourt een high- risk HPV types (16,1 8,31, 33,35 ,39,4 5,51, 52,56 ,58,5 9,66, 68) witho ut diffe renti ation . Not Available [facility] ([facility]) [address] [place], [address], 05/12/2022 03:07:36 04/29/20 22 05/10/2022 IGP, APTIM A HPV, RFX 16/18 ,45 diagnosis: Commen t NEGAT EZ FOR INTRA EPITH ELIAL LESIO N OR MALIG TALHA . Not Available [facility] ([facility]) [address] [place], [address], 05/12/2022 03:07:36 04/29/20 22 05/10/2022 IGP, APTIM A HPV, RFX 16/18 ,45 specimen adequacy: Orquidea frost Satis facto ry for evalu ation . No endoc ervic al compo nent is ident ified . Not Available [facility] ([facility]) [address] [facility], [place], [address], 05/12/2022 03:07:36 04/29/20 22 05/10/2022 IGP, APTIM A HPV, RFX 16/18 ,45 clinician provided ICD10: Orquidea frost Z01.4 19 Not Available [facility] ([facility]) [address] [place], [address], 05/12/2022 03:07:36 04/29/20 22 05/10/2022 IGP, APTIM A HPV, RFX 16/18 ,45 performed by: Pia Oshea (ASCP ) Not Available [facility] ([facility]) [address] [place], [address], 05/12/2022 03:07:36 04/29/20 22 05/10/2022 IGP, APTIM A HPV, RFX 16/18 ,45 . . Not Available [facility] ([facility]) [address] [place], [address], 05/12/2022 03:07:36 04/29/20 22 05/10/2022 IGP, APTIM A HPV, RFX 16/18 ,45 note: Orquidea frost The Pap smear is a scree portia test desig wilfred to aid in the detec tion of jerome ligna nt and malig nant condi tions of the uteri ne cervi x. It is not a diagn ostic proce dure and shoul d not be used as the sole means of detec ting cervi rodríguez cance r. Both false -posi tive and false -nega tive repor ts do occur . Not Available [facility] ([facility]) [address] [place], [address], 05/12/2022 03:07:36 04/29/20 22 05/10/2022 IGP, APTIM A HPV, RFX 16/18 ,45 test methodology: Commen t This liqui d based ThinP rep(R ) pap test was bebo hardin with the use of an image guide modesto edwards. Not Available [facility] ([facility]) [address] [place], [address], 05/12/2022 03:07:36 04/29/20 22 05/10/2022 IGP, APTIM A HPV, RFX 16/18 ,45 HPV genotype reflex Commen t Crite telma met, see HPV Genot ype resul ts. Not Available [facility] ([facility]) [address] [place], [address], 05/12/2022 03:07:36 02/05/20 24 02/06/2024 NUSWA B VAGIN ITIS PLUS (VG+) atopobium vaginae HIGH - 2 score abnormal Not Available [facility] ([facility]) [address] [place], [address], 02/07/2024 06:20:19 02/05/20 24 02/06/2024 NUSWA B VAGIN ITIS PLUS (VG+) bvab 2 HIGH - 2 score abnormal Not Available [facility] ([facility]) [address] [place], [address], 02/07/2024 06:20:19 02/05/20 24 02/06/2024 NUSWA B VAGIN ITIS PLUS (VG+) megasphaera 1 LOW - 0 score Calcu late total score by salomon spivey the 3 indiv idual bacte rial vagin osis (BV) marke r score s toget her. Total score is inter prete d as follo ws: Total score 0-1: Indic ates the absen ce of BV. Total score 2: Indet ermin ate for BV. Addit ional clini rodríguez data shoul d be evalu ated to estab zaheer a diagn osis. Total score 3-6: Indic ates the prese nce of BV. Not Available [facility] ([facility]) [address] [facility], [place], [address], 02/07/2024 06:20:19 02/05/20 24 02/06/2024 NUSWA B VAGIN ITIS PLUS (VG+) chaz albicans, MITESH NEGATI VE negati ve Not Available [facility] ([facility]) [address] [place], [address], 02/07/2024 06:20:19 02/05/20 24 02/06/2024 NUSWA B VAGIN ITIS PLUS (VG+) chaz glabrata, MITESH NEGATI VE negati ve Not Available [facility] ([facility]) [address] [place], [address], 02/07/2024 06:20:19 02/05/20 24 02/07/2024 NUSWA B VAGIN ITIS PLUS (VG+) trich vag by MITESH NEGATI VE negati ve Not Available [facility] ([facility]) [address] [place], [address], 02/07/2024 06:20:19 02/05/2002/07/2024 NUSWA B VAGIN ITIS PLUS (VG+) chlamydia trachomatis, MITESH NEGATI VE negati ve Not Available [facility] ([facility]) [address] [place], [address], 02/07/2024 06:20:19 02/05/20 24 02/07/2024 NUSWA B VAGIN ITIS PLUS (VG+) neisseria gonorrhoeae, MITESH NEGATI VE negati ve Not Available [facility] ([facility]) [address] [facility], [place], [address], 02/07/2024 06:20:19 02/05/20 24 02/06/2024 IGP, APTIM A HPV, RFX 16/18 ,45 HPV aptima NEGATI VE negati ve This nucle ic acid ampli ficat ion test detec ts fourt een high- risk HPV types (16,1 8,31, 33,35 ,39,4 5,51, 52,56 ,58,5 9,66, 68) witho ut diffe renti ation . Not Available [facility] ([facility]) [address] [facility], [place], [address], 02/08/2024 17:09:19 02/05/20 24 02/08/2024 IGP, APTIM A HPV, RFX 16/18 ,45 diagnosis: COMMEN T NEGAT EZ FOR INTRA EPITH ELIAL LESIO N OR JOSE PALENCIA . Not Available [facility] ([facility]) [address] [facility], [place], [address], 02/08/2024 17:09:19 02/05/20 24 02/08/2024 IGP, APTIM A HPV, RFX 16/18 ,45 specimen adequacy: COMMEN T Satis facto ry for evalu ation . Endoc ervic al and/o r squam ous metap lasti c cells (endo cervi rodríguez compo nent) are prese nt. Not Available [facility] ([facility]) [address] [facility], [place], [address], 02/08/2024 17:09:19 02/05/20 24 02/08/2024 IGP, APTIM A HPV, RFX 16/18 ,45 clinician provided ICD10: COMMEN T Z01.4 19 Not Available [facility] ([facility]) [address] [place], [address], 02/08/2024 17:09:19 02/05/20 24 02/08/2024 IGP, APTIM A HPV, RFX 16/18 ,45 performed by: Pia Wallace (ASCP ) Not Available [facility] ([facility]) [address] [place], [address], 02/08/2024 17:09:19 02/05/20 24 02/08/2024 IGP, APTIM A HPV, RFX 16/18 ,45 . . Not Available [facility] ([facility]) [address] [place], [address], 02/08/2024 17:09:19 02/05/20 24 02/08/2024 IGP, APTIM A HPV, RFX 16/18 ,45 note: ORQUIDEA Frost The Pap smear is a scree portia test desig wilfred to aid in the detec tion of jerome ligna nt and malig nant condi tions of the uteri ne cervi x. It is not a diagn ostic proce dure and shoul d not be used as the sole means of detec ting cervi rodríguez cance r. Both false -posi tive and false -nega tive repor ts do occur . Not Available [facility] ([facility]) [address] [facility], [place], [address], 02/08/2024 17:09:19 02/05/20 24 02/08/2024 IGP, APTIM A HPV, RFX 16/18 ,45 test methodology: ORQUIDEA Frost This liqui d based ThinP rep(R ) pap test was scree wilfred with the use of an image guide modesto arrieta Not Available [facility] ([facility]) [address] [place], [address], 02/08/2024 17:09:19 02/05/20 24 02/08/2024 IGP, APTIM A HPV, RFX 16/18 ,45 HPV genotype reflex COMMEN T Crite telma not met, HPV Genot ype not perfo rmed. Not Available [facility] [facility]) [address] [facility], [place], [address], 02/08/2024 17:09:19 Result Notes None recorded. Problems Name Problem SNOMED Code Status Onset Date Resolution Date Notes Provider Name and Address Organization Details Recorded Time Lower abdominal pain 48428847 Active Ilda ChristiansonISABELLE villegas null, [place] - [facility] 5 10:23:51 Dyspnea 028640377 Active Ilda ChristiansonshawISABELLE [place] [facility] 5 10:23:51 Goiter 1145680 Active Aruna Mo LPN null, [place] - [facility] 6 11:30:54 Chest pain 53797230 Active Ilda ChristiansonshISABELLE munoz [place] [facility] 5 10:23:51 Blood in urine 15360320 Active Ilda Jin [place] null, [place] [facility] 5 10:23:51 Irritable bowel syndrome 46382975 Active Saroj Salazar [place] [facility] 5 11:01:06 Constipat ion 12550097 Active Saroj Salazar [place] [facility] 5 13:06:51 Bacterial vaginosis 878157839 Completed 02/05/2019 SANTY GARCIA Attn: Robin g,[address] [facility], [place], [address], [place] - [facility] 9 17:04:10 Pain in left foot 104807816818 107 Active Audi Garcia MD Attn: Accountjovanna g,[address] [facility], [place], [address], [place] [facility] 6 19:06:03 Asthma 125466836 Active Audi Garcia MD Attn: Robin g,[address] [facility], [place], [address], [place] [facility] 6 19:06:03 Candidias is of vagina 02053531 Completed 201602/15/2017 SANTY GARCIA Attn: Robin spivey,[address] [facility], [place], [address], [facility] 9 17:04:14 Depressiv e disorder 02603903 Active 2016 Saroj more, [facility] 7 16:52:46 Smoker 92660410 Active 2016 Saroj more, [facility] 7 16:52:53 Candidias is of vagina 07871315 Completed 201602/05/2019 SANTY GARCIA Attn: Robin spivey,[address] [facility], [place], [address], [facility] - SI 9 17:04:14 Problem Notes None recorded. Procedures Surgical History Date Name Laterality Status Provider Name and Address Organization Details Recorded Time 2 Date of Last Pap Smear completed Toyin Webster MA [facility] 04/29/2022 09:41:28 2 Orthopedic Surgery completed Ilda Jin MA [facility] 04/30/2015 10:29:41 Knee Surgery completed Audi Garcia MD Attn: Accounting,2 [address] [facility], [place], [address], [facility] 03/10/2015 15:13:26 Imaging Results None recorded. Procedure Notes None recorded. Medical Equipment None Reported. Allergies No known drug allergies Medications Name Sig Start Date Stop Date Status Note LastModified by Organization Details LastModified Time Prescriptio n - Prior Authorizati on Request 05/25 completed Not Available Not Available Not Available multivitami n tablet Take 1 tablet every day by oral route. 04/29 completed Not Available Not Available Not Available cyclobenzap rine 10 mg tablet TAKE 1 TABLET BY MOUTH EVERY 8 HOURS 04/29 completed Not Available Not Available Not Available amoxicillin 500 mg capsule TAKE 2 CAPSULES BY MOUTH TWICE DAILY 04/29 completed Not Available Not Available Not Available fluconazole 100 mg tablet 02/05 completed Not Available Not Available Not Available bupropion HCl SR 150 mg tablet,12 hr sustained-r elease TAKE ONE TABLET BY MOUTH TWICE DAILY 02/05 completed Not Available Not Available Not Available doxycycline hyclate 100 mg capsule TAKE ONE CAPSULE BY MOUTH TWICE DAILY FOR 14 DAYS 04/29 completed Not Available Not Available Not Available azithromyci n 250 mg tablet 02/05 completed Not Available Not Available Not Available ibuprofen 800 mg tablet TAKE 1 TABLET BY MOUTH THREE TIMES DAILY FOR 15 DAYS NEEDED FOR PAIN active Not Available Not Available No t Available fluconazole 150 mg tablet TAKE 1 TABLET BY MOUTH DAILY NEEDED 02/05 completed Not Available Not Available Not Available clarithromy felicity 500 mg tablet TAKE 1 TABLET BY MOUTH TWICE DAILY 04/29 completed Not Available Not Available Not Available hydrocodone 5 mg-acetamin ophen 325 mg tablet 02/05 completed Not Available Not Available Not Available metronidazo le 0.75 % (37.5 mg/5 gram) vaginal gel INSERT 1 APPLICATO RFUL VAGINALLY EVERY DAY AT BEDTIME FOR 5 DAYS active Not Available Not Available No t Available ceftriaxone 250 mg solution for injection Take 500 mg every day by injection route for 1 day. 11/28 completed Not Available Not Available Not Available penicillin V potassium 500 mg tablet TAKE 1 TABLET BY MOUTH TWICE DAILY 02/05 completed Not Available Not Available Not Available amlodipine 2.5 mg tablet 02/04 completed Not Available Not Available Not Available metronidazo le 500 mg tablet TAKE 1 TABLET BY MOUTH TWICE DAILY FOR 14 DAYS 04/29 completed Not Available Not Available Not Available sulfamethox azole 800 mg-trimetho prim 160 mg tablet Take 1 tablet every 12 hours by oral route for 3 days. 02/02 completed Not Available Not Available Not Available peg-electro lyte solution 420 gram oral solution 02/15 completed Not Available Not Available Not Available omeprazole 40 mg capsule,del ayed release Take 1 capsule every day by oral route. 04/29 completed Not Available Not Available Not Available tramadol 50 mg tablet 02/02 completed Not Available Not Available Not Available acetaminoph en 500 mg tablet 02/04 completed Not Available Not Available Not Available baclofen 10 mg tablet 02/04 completed Not Available Not Available Not Available cephalexin 500 mg capsule TAKE 1 CAPSULE BY MOUTH EVERY 8 HOURS FOR 7 DAYS 02/04 completed Not Available Not Available Not Available ranitidine 150 mg tablet Take 1 tablet twice a day by oral route for 30 days. 02/05 completed Not Available Not Available Not Available prednisone 50 mg tablet TAKE 1 TABLET BY MOUTH EVERY MORNING 04/29 completed Not Available Not Available Not Available promethazin e 25 mg tablet 02/15 completed Not Available Not Available Not Available Qvar 40 mcg/actuati on Metered Aerosol oral inhaler INHALE 2 PUFFS BY MOUTH TWICE DAY 02/15 completed Not Available Not Available Not Available omeprazole 20 mg capsule,del ayed release TAKE 1 CAPSULE BY MOUTH DAILY FOR 14 DAYS 02/04 completed Not Available Not Available Not Available norethindro ne acetate 1 mg-ethinyl estradiol 20 mcg tablet TAKE 1 TABLET BY MOUTH DAILY 04/29 completed Not Available Not Available Not Available ergocalcife rol (vitamin D2) 1,250 mcg (50,000 unit) capsule TAKE 1 CAPSULE BY MOUTH EVERY WEEK DIRECTED 04/29 completed Not Available Not Available Not Available azelastine 137 mcg (0.1 %) nasal spray 02/05 completed Not Available Not Available Not Available ibuprofen 600 mg tablet TAKE 1 TABLET BY MOUTH EVERY 6 HOURS WITH FOOD NEEDED 04/29 completed Not Available Not Available Not Available polyethylen e glycol 3350 17 gram/dose oral powder 02/15 completed Not Available Not Available Not Available methylpredn isolone 4 mg tablets in a dose pack 02/05 completed Not Available Not Available Not Available norethindro ne (contracept ez) 0.35 mg tablet Take 1 tablet every day by oral route. 02/04 completed Not Available Not Available Not Available fluticasone propionate 50 mcg/actuati on nasal spray,suspe nsion 02/05 completed Not Available Not Available Not Available medroxyprog esterone 150 mg/mL intramuscul ar suspension Inject 1 mL every 3 months by intramusc ular route. 04/29 completed Not Available Not Available Not Available doxycycline hyclate 100 mg tablet 02/15 completed Not Available Not Available Not Available dicyclomine 10 mg capsule Take 1 capsule 3 times a day by oral route as needed. 02/02 completed Not Available Not Available Not Available naproxen 500 mg tablet TAKE 1 TABLET BY MOUTH TWICE DAILY WITH FOOD NEEDED FOR PAIN 02/04 completed Not Available Not Available Not Available Ventolin HFA 90 mcg/actuati on aerosol inhaler Inhale 2 puffs every 6-8 hours by inhalatio n route for 30 days. 02/05 completed Not Available Not Available Not Available oxycodone 5 mg tablet 04/29 completed Not Available Not Available Not Available metaxalone 800 mg tablet TAKE 1 TABLET BY MOUTH THREE TIMES DAILY NEEDED FOR BACK PAIN 02/04 completed Not Available Not Available Not Available tinidazole 500 mg tablet TAKE 4 TABLETS BY MOUTH EVERY DAY FOR 2 DAYS 02/15 completed Not Available Not Available Not Available lactulose 10 gram/15 mL oral solution Take 15 mL every day by oral route. 02/15 completed Not Available Not Available Not Available Ventolin HFA 03/10 completed Not Available Not Available Not Available Oysco 500/D 500 mg-5 mcg (200 unit) tablet 04/29 completed Not Available Not Available Not Available Asmanex Twisthaler 110 mcg/actuati on(30 doses) breath activated inhalr Inhale 2 puffs every day by inhalatio n route for 30 days. 2014 active Not Available Not Available Not Avai lable Calcium with Vitamin D 600 mg-10 mcg (400 unit) tablet Take 1 tablet twice a day by oral route. 04/29 completed Not Available Not Available Not Available Lo Loestrin Fe 1 mg-10 mcg (24)/10 mcg (2) tablet Take 1 tablet every day by oral route. 02/05 completed Not Available Not Available Not Available lactulose 10 gram/15 mL (15 mL) oral solution Take 15 mL every day by oral route. 02/15 completed Not Available Not Available Not Available calcium 600 mg (as carbonate)- vitamin D3 20 mcg (800 unit) tablet Take 1 tablet twice a day by oral route. 02/05 completed Not Available Not Available Not Available Linzess 145 mcg capsule Take 1 capsule every day by oral route. 02/15 completed Not Available Not Available Not Available Asmanex HFA 200 mcg/actuati on aerosol inhaler Two puffs once a day. 02/05 completed Not Available Not Available Not Available Slynd 4 mg (28) tablet Take 1 tablet every day by oral route. 05/18 completed Not Available Not Available Not Available Vitals Date Recorded Body height Body mass index (BMI) Body weight Systolic blood pressure Diastolic blood pressure Provider Name and Address Organization Details Last Updated DateTime 11/28/2017 167.64 cm 19 kg/m2 88772.9 g 122 mm[Hg] 76 mm[Hg] Ilda Jin MA [facility] 8 17:17:46 Date Recorded Body weight Body temperature Heart rate Oxygen saturation Oxygen saturation in Arterial blood by Pulse oximetry Systolic blood pressure Diastolic blood pressure Provider Name and Address Organization Details Last Updated DateTime 9 75111.9 g 98.3 [degF] 78 /min 98 % 98 % 106 mm[Hg] 68 mm[Hg] Feroz Giordano MA [facility] 9 11:38:09 Date Recorded Body height Provider Name an d Address Organization Details Last Updated DateTime 02/15/2019 167.64 cm Ilda Jin MA [facility] 2018 14:38:43 Date Recorded Body height Body mass index (BMI) Body weight Systolic blood pressure Diastolic blood pressure Provider Name and Address Organization Details Last Updated DateTime 04/29/2022 167.64 cm 20.2 kg/m2 73368.48 g 114 mm[Hg] 74 mm[Hg] Toiyn Webster MA [facility] 2 09:44:53 Date Recorded Body height Body mass index (BMI) Body weight Oxygen saturation Oxygen saturation in Arterial blood by Pulse oximetry Heart rate Systolic blood pressure Diastolic blood pressure Provider Name and Address Organization Details Last Updated DateTime 4 167.64 cm 18.6 kg/m2 26984.2 g 98 % 98 % 69 /min 138 mm[Hg] 80 mm[Hg] Dee Dee Salazar MA [facility] 4 15:22:21 Social History Question Answer Notes LastModified by Organizat ion Details LastModified Time Tobacco Smoking Status Current Every Day Smoker August ISABELLE Alexander [facility] 03/10/2015 14:58:51 Do You Have An Advance Directive? No Information not available 03/10/2015 What Is Your Level Of Alcohol Consumption? Occasional Information not available 03/10/2015 Is Blood Transfusion Acceptable In An Emergency? Yes Information not available 04/30/2015 What Is Your Level Of Caffeine Consumption? Heavy Information not available 03/10/2015 How Much Tobacco Do You Chew? None Information not available 03/10/2015 Are You Currently Employed? Yes [employer] Information not available 04/30/2015 What Type Of Diet Are You Following? REGULAR Information not available 04/30/2015 Do You Or Have You Ever Used E-cigarettes Or Vape? Never Used Electronic Cigarettes Information not available 02/05/2019 Education 11 Information no t available 04/30/2015 What Is Your Occupation? [employer] Information not available 04/30/2015 Are There Any Guns Present In Your Home? No Information not available 03/10/2015 Hard Of Hearing Or Deaf In One Or Both Ears? No Information not available 03/10/2015 Legally Blind In One Or Both Eyes? No Information not available 03/10/2015 Live Alone Or With Others? With Others Information not available 04/30/2015 Marital Status Single Informatio n not available 03/10/2015 What Was The Date Of Your Most Recent Tobacco Screening? 02/05/2024 [email or web address] Information not available 02/05/2024 How Many Children Do You Have? 3 Information not available 04/30/2015 Performs Monthly Self-breast Exam? No Information not available 03/10/2015 Do You Use Protection During Sex? No Information not available 04/30/2015 What Is Your Relationship Status? Information not available 02/05/2019 Seat Belts Used Routinely Yes Information not available 03/10/2015 Are You Sexually Active? Yes Information not available 04/30/2015 Smoke Alarm In Home Yes Information not available 03/10/2015 Do You Have Smoke And Carbon Monoxide Detectors In Your Home? Yes Information not available 04/29/2022 At What Age Did You Start Smoking Tobacco? 21 Information not available 04/30/2015 Are You Passively Exposed To Smoke? Yes Information not available 04/29/2022 Do You Or Have You Ever Used Smokeless Tobacco? Never Used Smokeless Tobacco Information not available 02/05/2019 How Much Tobacco Do You Smoke? 0.25 PPD Pt States Trying Stop Information not available 04/30/2015 General Stress Level High Information not available 04/30/2015 Do You Use Any Illicit Or Recreational Drugs? No Information not available 04/29/2022 Do You Use Sunscreen Routinely? No Information not available 03/10/2015 Has Tobacco Cessation Counseling Been Provided? Yes Information not available 04/29/2022 On What Date Was Tobacco Cessation Counseling Provided? 04/29/2022 Information not available 04/29/2022 How Many Years Have You Smoked Tobacco? 18 Information not available 04/30/2015 Do You Or Have You Ever Used Any Other Forms Of Tobacco Or Nicotine? No Information not available 04/29/2022 Sex: Unknown Functional Status Question Answer Note LastModified by Organizat ion Details LastModified Time What is your exercise level? Occasional Information not available 04/30/2015 Mental Status None recorded. Family History Relationship Description Onset Age of this Age Resolved Age Notes LastModified by Organization Details LastModified Time Father Hypertensive disorder [email or web address] Not available 04/30 10:53:17 Father Malignant tumor of prostate [email or web address] Not available 04/30 10:53:17 Notes:mother had a type of c ancer but pt is unsure what type Medical History Condition Response Coronary Artery Disease N Blood Diseases N Kidney Cyst N Hyperthyroidism N Blood disorders N MRSA N Blood Transfusion N Emphysema N Depression Y COPD N Blood Clots N Pneumonia N Peripheral Arterial Disease N Premature N Edema N TIA N Headaches/Migraines N Anxiety Disorder N Obesity N Polyps N Infertility N Acid Reflux (GERD) N Hematuria N Stroke N Neck Injury N Polio N Hospital Admission other than N Neurologic Disorder N Other Sleep Disorders N Rheumatoid Arthritis N Fibromyalgia N Abdominal Aortic Aneurysm Repair N Kidney Disease N Heart Conditions N Heart Disease/Heart Problems N Hospitalizations N Brain Tumors N Acne N Skin Problems N Eating Disorder N Meningitis N Constipation N Tuberculosis N Cerebral Palsy N Myocardial Infarction N Asthma Y Substance Abuse N Peripheral Vascular Disease N Vertigo N Sleep Disorder N Cirrhosis N Pulmonary Embolism N Chicken Pox N Hematologic Disease N Flomax Use Past or Present N Anxiety/Depression N Thyroid Disease N Colon Cancer N Lung Disease N Glaucoma N Developmental or Behavioral Disorders N Bipolar N Pacemaker N Diverticulitis/Diverticulosis N Orthopedic Problems N Anesthesia Complications N Orthotics N Head Injury/Concussion N Congenital Anomalies N Wilson Bite N Chronic Kidney Disease N Endometriosis N Liver Disease N Schizophrenia N Dialysis N Speech Delay N Chronic Obstructive Pulmonary Disease N Parkinson's Disease N Thyroid Problems N GI Problems N Developmental Delay N Anemia N Multiple Sclerosis N Immune System Disorder N Colon Polyps N Heart Attack ([place]) N Diabetes N Cardiomyopathy N Blood Transfusions N Heart Problems/Murmur N Eye Trauma N Congestive Heart Failure (CHF) N Valvular Heart Disease N Hyperlipidemia N Double Vision N Abuse/Domestic Violence N Hepatitis B N Lupus N Epilepsy/Seizures N Reflux/GERD N Aneurysm N Heart Disease N Bronchitis N Pre-Eclampsia N Hypertension N Heart Failure N Other Y Gout N High Blood Pressure N Atrial Fibrillation N Kidney Stones N Head Trauma/Injury N Congenital Heart Disease N Spine Problems N Gastrointestinal Disease N Lung Mass N Sinusitis N Obstructive Sleep Apnea N Muscle, Joint, or Bone Problems N Autoimmune disease N Vision or Eye Problems N Arthritis N Blood Clot N Cancer N Seasonal allergies N Leg or Foot Ulcers N Raynaud's Disease N Aortic Aneurysm N Arrhythmia N Headaches N Heart Problems N Ambloypia N Ear or Hearing Problems N Hyperparathyroidism N Migraines N Artificial Joints N Kidney or Bladder Problems Y NSAID Use N Encephalitis N PTSD N Ulcers N Prostate Hypertrophy N Bleeding Disorder N AIDS/HIV N Urinary Tract Infection N Back Problems N Allergies N Atrial Flutter N GERD/Reflux N Hepatitis N Autism Spectrum Disorder (ASD) N Breast Cancer N Hernia N Hypothyroidism N Breast Problem N Genitourinary Disease N Deep Vein Thrombosis N Varicose Veins N Cystic Fibrosis N Hearing Loss N Developmental Problems N Carotid Disease N Vitamin D Deficiency N ADHD N Bladder or Kidney Problems N High Cholesterol N Meniers N Valvular Abnormalities N Psychiatric/Mental Health Condition N Organ Transplant N Foot Deformity N Allergies/Hayfever N Dyslipidemia N Hyponatremia N Diabetic Eye Disease N Osteoporosis/Osteopenia N Back Pain N Proteinuria N Mental Illness N Neurological Problems N Ovarian Cancer N Bedwetting N Seizures/Epilepsy N Kidney Failure N Ocular trauma N Diverticulitis N Dementia N Sleep Apnea N Mental Problems N Warfarin Management N Osteoporosis N Gynecological History Statement/Question Response Abnormal Pap N Flow Moderate Date of LMP 03/15/2022 On BCP's at Conception? N STIs/STDs N HPV Vaccine N Duration of Flow (days) 3 Age at Menarche 14 Current Control Method None Age at First Child 20 Frequency of Cycle (Q days) 30 Sexually Active? Y Menses Monthly N Date of Last Pap Smear 04/29/2022 Sexual Problems? Y LMP Approximate Desired Control Method BCPs Obstetrics History GPAL:G 5 P 2 1 2 3 Type Value Multiple Births 0 Full Term 2 Induced 2 Spontaneous 0 Premature 1 Living 3 Ectopics 0 Total 5 Immunizations Vaccine Type Date Status Note Provider Nam e and Address Organization Details Recorded Time Tdap 03/10/2015 completed Not Available [facility] 06/01/2019 02:30:20 Past Encounters Encounter ID Performer Location Encounter Start Date Encounter Closed Date Diagnosis/Indication Diagnosis SNOMED-CT Code Diagnosis ICD10 Code Diagnosis Note [id number] MD Zenaida Maguire (Adult Med) [address] [place] [phone] 03/10/2015 14:40:35 03/10/2015 17:55:00 Lower abdominal pain 13446004 R10.30 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 She describes some symptoms of a UTI althoughI am not convinced that she has a antoinette UTI General ex amination of patient 294534329 Z00.8 39 y/o BF who presents to this office, she says she was seen in this office ~[address], Dr. Farrell. She was in the ER at [place] ~ 8 months at which time she was told she had an ovarian cyst on US and she was given pain meds and told that it would dissolve. About 2 months ago she was seen in the ER at [facility] and she was told she had emphysema. Dyspnea 749874128 R06.00 Tobacco cessation was discussed, obtain PFTs, continue albuterol and add Qvar She reports a history of childhood asthma, she then started smoking 10 years ago Goiter 1179195 E04.9 She describes some dysphagia? or at least a choking like sensation. Clinically she has a palpable thyroid and she states that she has lost 6lbs unintentio wali. Chest pain 79219978 R07. 9 EKG, if one was done in the ER Blood in urine 75142600 R31.9 Possibly from a UTI?, she has been prescribed Bactrim and I will review the formal UA that I have ordered. [id number] Saroj Salazar Zenaida (DIGITAL MEDIA MANAGER) [address] [place] [phone] 0 04/30/2015 09:48:49 04/30/2015 12:41:19 Gynecologic examination 58500594 Z01.419 Family kesha nning surveillance 716714549 Z30.09 Irritable bowel syndrome 10860051 K58.9 Constipation 28363433 K5 9.00 [id number] MD Zenaida Maguire (Adult Med) [address] [place] [id number] 0 02/03/2016 15:57:48 02/03/2016 17:12:35 Pain in left foot 5460746250 17380 M79.672 There is a history of a left foot injury for which she follows up with the orthopedic surgeon in [place], [place]. She has had multiple surgeries and she suggests inadequate union, there is a plan for her to followup. I will like to defer management of this issue to her orthopedic surgeon. Adult [facility] th examination 771343570 Z00.00 Ms. Remy returns and she has not really had any of the tests that we ordered done, she states that she has been going through some stuff. I have reprinted the previous orders from her last visit 02/2015 Immunization refused 275 994183 Z28.21 Asthma 975921745 J45.90 9 The role of her albuterol and steroid inhalers were discussed, it appears that in the interim she was prescribed a medal dose pack by ? [id number] MD Zenaida Maguire (Adult Med) [address] [place] [id number] 0 05/25/2016 15:51:34 05/26/2016 09:05:25 Burping 112585062 R14.2 The etiology is unclearAdd endum 05/26/2016I wonder if some of her symptoms are related to pressure from her goiter, I will await the US and have her seen by ENT Goiter 7557633 E04.9 US as previously orderedAdd endum 05/16/2016EN T Tobacco de pendence syndrome 31011251 F17.290 Lightheadedness 49577128 8 R42 She describes lightheade dness which is intermitte nt and at times associated with tachycardi a Irregular periods 592254 07 N92.6 Intermitte nt palpitations 280391480 R00.2 [id number] Saroj Estevez HC (DIGITAL MEDIA MANAGER) [address] [place] [phone] 0 06/08/2016 15:17:10 06/10/2016 17:07:40 Gynecologic examination 53928662 Z01.419 Constipation 30155058 K5 9.00 Bacterial vaginosis 4197 60244 N76.0 Irritable bowel syndrome 07277734 K58.9 Perimenopa usal disorder 798304682 N95.9 Anemia 027303847 D64.9 [id number] Saroj Estevez (DIGITAL MEDIA MANAGER) [address] [place] [address] [phone] 0 02/15/2017 14:50:07 02/16/2017 14:21:11 Gynecologic examination 59471460 Z01.419 Exposure t o sexually transmissible disorder 383851785 Z20.2 Bacterial vaginosis 4197 44043 N76.0 Female pel nicola inflammatory disease 473123702 N73.9 Smoker 18563446 F17.918 [id number] Saroj Estevez (DIGITAL MEDIA MANAGER) [address] [place] [address] [id number] 0 11/28/2017 15:48:05 11/30/2017 12:58:52 Right inguinal hernia 991875020 K40.90 Inguinal hernia palpated in RLQ, guarding present, and tenderness upon palpation. Abnormal u terine bleeding 3037244653 9100 N93.9 Family kesha nning surveillance 711235436 Z30.09 [id number] SANTY OLIVEIRA (DIGITAL MEDIA MANAGER) [address] [place] [address] [id number] 0 02/05/2019 11:19:26 02/06/2019 14:23:11 Gynecologic examination 77987838 Z01.419 Venereal d isease screening 170674871 Z11.3 Screening mammography 24 135226 Z12.31 Family kesha nning surveillance 223818722 Z30.09 Advised pt that because she smokes and is older than 35yo, estrogen is CI. Discussed different progestin only options with patient such as POPs, Depo Provera shot, Nexplanon, and IUDs. Pt does not want implant and has tried Depo in the past. She is interested in POPs. Smoker [id number] F17.200 Gastroesop hageal reflux disease without esophagitis [id number] K21.9 Pt with chronic abdominal pain associated with acid reflux and nausea. Pt had generalize d tenderness in abdomen, but worse in the epigastric area. Recommend pt trial PPI therapy and f/u in 3 months to reassess symptoms. Abdominal pain [id number] R10.9 Chronic. GI vs Sheetmetal Patternmaker related. Pt had EGD/colono scopy in 2017 that was [address]. Had CT abdomen/pe lvis in 2017 that was significan t for emphysema, bladder wall thickening , and constipati on. Pt has trialed medication s for IBS and constipati on with minor relief. Pt reports cysts on ovaries but no imaging results in chart to support it. Will start PPI therapy as above and reassess symptoms in 3 months. Pt may need pelvic US. Consider amylase/li pase/h pylori testing. Cannot rule out endometrio sis either. [id number] ISABELLE Queen (DIGITAL MEDIA MANAGER) [address] [place] [address] [phone] 0 02/15/2019 14:30:36 02/18/2019 12:57:54 Depot contraceptive-no problem [id number] Z30.684 [id number] SANTY OLIVEIRA (DIGITAL MEDIA MANAGER) [address] [place] [address] [phone] 0 04/29/2022 09:17:12 05/10/2022 16:04:13 Gynecologic examination 44038210 Z01.419 Cervical cancer screening: Last Pap 2017, NILM HPV negative, updated todayBreas t cancer screening: Reviewed recommenda tions for initiation at age 40 with annual screening. Discussed SBESTI screening: routine nuswab, treat as needed. Safe sex practices discussed. Contracept ion: Stopped OCPs 2 months ago, wanting to restartDie t/exercise : Counseled regarding importance of physical activity, healthy diet and appropriat e calcium intake. Screening for malignant neoplasm of breast [id number] Z12.31 Patient has not had a mammogram in the past. Order placed for routine screening. Smoker 37307110 F17.200 Patient is a current smoker for the past 20 years. Counseled pt on smoking cessation. Vaginal discharge 362436 006 N89.8 Pt reports white discharge x 1 month, no discharge noted on exam today. Nuswab done, will notify with results and treat as indicated. Pain in pelvis 10412920 R10.2 Patient reports history of cysts diagnosed one year ago. She complains of chronic lower abdominal pain, dyspareuni a, dyschezia. Lower abdomen TTP on exam. Will get US to monitor cysts and further evaluate. [facility] [id number] Z30.9 Pt previously on OCPs. Discussed different control options with patient including R/B/A/I. Advised no estrogen due to smoking status. Patient would like to stick with pills and agrees to start Slynd. Side effects discussed. RTC in 3 months. [id number] JAYANT DESAI (Adult Med) [address] [place] [address] [phone] 0 02/05/2024 15:04:49 02/06/2024 12:25:10 Gynecologic examination [id number] Z01.419 Nuswab and PAP sample taken Mass of right breast 141 [id number] 3292695 N63.10 3.6dto8tr mass on R breast, Upper Outer quadrant Adnexal tenderness 68402 3002 R10.2 R adnexal tenderness on PE todayPt having pain with intercours e Depression screening 171 932724 Z13.31 PHQ9- {{Negative Positive Mild* Mode rate Sever e}} (5 out of 27) Mental hea lth screening 401420551 Z13.39 GAD7- {{Negative Positive Mild* Mode rate Sever e}} (5 out of 21) Underweight 956404494 R6 3.6 BMI 18.6 Vaginal discharge 819867 006 N89.8 Health Concerns Section Related Observation LastModified by Organization Detai ls LastModified Time None Recorded Concern Status LastModified by Organization Details LastModified Time None Recorded Advance Directives Directive N: Payers Encounter Date Sequence Insurance Name Policy Number Policy Ramires Covered Member ID Ramires Member ID Guarantor Name 11/28/2017 2 [facility] Nuria Remy [id number] Nuria Remy 02/05/2019 [facility] Nuria Remy [id number] Nuria Remy 02/05/[address] [facility] [id number] Nuria May [id number] Nuria Remy 02/15/2019 1 [place] [id number] [facility] [id number] Nuria Remy 04/29/2022 1 [place] [id number] Nuria May [id number] Nuria Remy 02/05/[address] [id number] [facility] Notes Date Note Type Note Provider Name and Address Organization Details Recorded Time 11/28/2017 text/html Abnormal BleedingReported bypatient.Onset/Timing :present cycle Duration:10-15 days/month Quality:heavy Associated Symptoms:no pelvic pain; no dyspareunia; no fatigue; no dizziness; no anemia/iron supplements; no shortness of breath; no CP/palpitations; no bloating; no change in bowel function; no urinary symptoms; no PMS; no vaginal discharge; no vaginal itching/irritation;dys menorrhea;abdominal painPelvic PainReported bypatient.Associated Symptoms:no back pain; no chills; no constipation; no diarrhea; no vaginal discharge; no pain with urination; normal emptying of bladder; no feelings of urgency; no blood in the urine; normal libido; no fever; no nausea; no vomiting; no nocturia; no sexual abuse; no ectopic pregnancies; no endometriosis; no urinary frequency; no vaginal itching or irritation; no dyspareunia;abdominal pain 42yo AAF presents with AUB and RLQ pain. On menstruation since 2017. KAREN Gerardo - SI 11/28/2017 22:12:30 02/05/2019 text/html Annual GYNReport ed bypatient.Menstrual cycle:Normal menses Urinary symptoms:No hematuria; No incontinence Vulva:No genital lesion Vagina:Normal vaginal discharge Breast:No breast pain; No breast lump; No nipple discharge Current Contraception: control not practiced; Wants to discuss contraceptive options Sexual complaints:Normal libido;Pain during intercourse Menopausal Symptoms:No menopausal symptoms; Normal vaginal lubrication Psychological symptoms:No depression; No anxiety; No PMDD Preventive measures:Encourage self breast examination; Encourage regular exercise; Encourage no tobacco use; Encourage regular mammograms starting age 40; Needs to schedule mammogram 43yo F presents for annual WWE. C/o chronic pelvic pain and dyspareunia. SANTY OLIVEIRA Attn: Accounting[address] [place], [address], [facility] 02/05/2019 17:12:48 04/29/2022 text/html Annual GYNReport ed bypatient.History:46F presents to clinic for WWE. Patient admits to dysmenorrhea, and some dyschezia. This has been ongoing for her. Pt is a current smoker for the past 20 years, 7 cigarettes/day. Menstrual cycle:Missed most recent period(Patient missed 2 months of period. Pt menses is usually monthy, duration varies between 2-8 days.) Urinary symptoms:No hematuria; No incontinence Vulva:No genital lesion Vagina:Foul-smelling;W kita Breast:No breast pain; No breast lump; No nipple discharge Current Contraception:Wants to discuss contraceptive options; Patient was previously on combined OCP and stopped two months ago, previously on the pill for one year. Sexual complaints:Normal libido;Pain during intercourse Menopausal Symptoms:Normal vaginal lubrication;Hot flashes;Insomnia due to night sweats Preventive measures:Encourage self breast examination; Encourage regular exercise; Encourage no tobacco use; Encourage regular mammograms starting age 40; Needs to schedule mammogram SANTY OLIVEIRA Attn: Accounting[address] [place], [address], [facility] 05/05/2022 17:55:27 02/05/2024 text/html 48 y/o AA F here for annual exam. Pt is c/o painful intercourse. Pt is sexually active with 1 M partner. Denies any abnormal bleeding. States pain is on L side of abdomen after having sex. Pt denies FHx breast cancer or cervical cancer, mother did have cancer but she does not remember which kind. Denies SOB, CP, TURNER, N/V/D EDMOND POSADA PA-C Attn: Accounting[address] [facility], [place], [address], [place] - [place] 02/05/2024 15:51:29 OBGyn Episode Ob Episode Information Episode Created Date Number of Fetuses Patient Bloodtype Patient rh Status Prepregnancy Weight lbs Domestic Partner Domestic Partner Phone Father Name Screw Machine Operator Status 04/30/20 15 1 CLOSED Fetus Data First Name Last Name Admitted to NICU Weight (g) Sex Living Outcome Pediatric Complications Fetus ID Race Codes Race Delivery Type 2863.29 95 F Prematur e 08448 Vaginal Ollie Calculation Initial Ollie Date Initial Exam Date Initial Exam Provider Initial Ultrasound Date Last Menstrual Period Date Ultra Sound Weeks Gestation 0 Eighteen To Twenty Week Ollie Update Ultra Sound Date Fundal Height At Umbil Quickening Date Ultra Sound Latest Weeks Gestation Final Ollie Confirmed By Final Ollie Confirmed Date Final Ollie Date Ultra Sound Latest Days Gestation 0 0 Menstrual History Last Menstrual Date Menses Monthly On Bcp Conception Prior Menses Frequency Hcg Plus Date Menarche Onset Age Delivery Information Delivery Date Delivery Type Labor Anesthesia Weeks Gestation Incision Type Labor Labor Length Hrs Delivered By Post Complications Tubal Sterilization Discharge Date Comments 2 None 34 true Lanaisha Discharge Information Feeding Method Contraceptive Method Maternal HG B and HCT Levels Ob Episode Information Episode Created Date Number of Fetuses Patient Bloodtype Patient rh Status Prepregnancy Weight lbs Domestic Partner Domestic Partner Phone Father Name Screw Machine Operator Status 04/30/20 15 1 CLOSED Fetus Data First Name Last Name Admitted to NICU Weight (g) Sex Living Outcome Pediatric Complications Fetus ID Race Codes Race Delivery Type , Induced 50682 Ollie Calculation Initial Ollie Date Initial Exam Date Initial Exam Provider Initial Ultrasound Date Last Menstrual Period Date Ultra Sound Weeks Gestation 0 Eighteen To Twenty Week Ollie Update Ultra Sound Date Fundal Height At Umbil Quickening Date Ultra Sound Latest Weeks Gestation Final Ollie Confirmed By Final Ollie Confirmed Date Final Ollie Date Ultra Sound Latest Days Gestation 0 0 Menstrual History Last Menstrual Date Menses Monthly On Bcp Conception Prior Menses Frequency Hcg Plus Date Menarche Onset Age Delivery Information Delivery Date Delivery Type Labor Anesthesia Weeks Gestation Incision Type Labor Labor Length Hrs Delivered By Post Complications Tubal Sterilization Discharge Date Comments 3 Discharge Information Feeding Method Contraceptive Method Maternal HG B and HCT Levels Ob Episode Information Episode Created Date Number of Fetuses Patient Bloodtype Patient rh Status Prepregnancy Weight lbs Domestic Partner Domestic Partner Phone Father Name Screw Machine Operator Status 04/30/20 15 1 CLOSED Fetus Data First Name Last Name Admitted to NICU Weight (g) Sex Living Outcome Pediatric Complications Fetus ID Race Codes Race Delivery Type 2721.55 2 F Full Term 08410 Vaginal Ollie Calculation Initial Ollie Date Initial Exam Date Initial Exam Provider Initial Ultrasound Date Last Menstrual Period Date Ultra Sound Weeks Gestation 0 Eighteen To Twenty Week Ollie Update Ultra Sound Date Fundal Height At Umbil Quickening Date Ultra Sound Latest Weeks Gestation Final Ollie Confirmed By Final Ollie Confirmed Date Final Ollie Date Ultra Sound Latest Days Gestation 0 0 Menstrual History Last Menstrual Date Menses Monthly On Bcp Conception Prior Menses Frequency Hcg Plus Date Menarche Onset Age Delivery Information Delivery Date Delivery Type Labor Anesthesia Weeks Gestation Incision Type Labor Labor Length Hrs Delivered By Post Complications Tubal Sterilization Discharge Date Comments 0 Regional-Ep idural 40 false 10 Letitia Discharge Information Feeding Method Contraceptive Method Maternal HG B and HCT Levels Ob Episode Information Episode Created Date Number of Fetuses Patient Bloodtype Patient rh Status Prepregnancy Weight lbs Domestic Partner Domestic Partner Phone Father Name Screw Machine Operator Status 04/30/20 15 1 CLOSED Fetus Data First Name Last Name Admitted to NICU Weight (g) Sex Living Outcome Pediatric Complications Fetus ID Race Codes Race Delivery Type 3260.19 25 M Full Term 93095 Vaginal Ollie Calculation Initial Ollie Date Initial Exam Date Initial Exam Provider Initial Ultrasound Date Last Menstrual Period Date Ultra Sound Weeks Gestation 0 Eighteen To Twenty Week Ollie Update Ultra Sound Date Fundal Height At Umbil Quickening Date Ultra Sound Latest Weeks Gestation Final Ollie Confirmed By Final Ollie Confirmed Date Final Ollie Date Ultra Sound Latest Days Gestation 0 0 Menstrual History Last Menstrual Date Menses Monthly On Bcp Conception Prior Menses Frequency Hcg Plus Date Menarche Onset Age Delivery Information Delivery Date Delivery Type Labor Anesthesia Weeks Gestation Incision Type Labor Labor Length Hrs Delivered By Post Complications Tubal Sterilization Discharge Date Comments 7 None 40 false 19 Erlin Discharge Information Feeding Method Contraceptive Method Maternal HG B and HCT Levels Ob Episode Information Episode Created Date Number of Fetuses Patient Bloodtype Patient rh Status Prepregnancy Weight lbs Domestic Partner Domestic Partner Phone Father Name Screw Machine Operator Status 04/30/20 15 1 CLOSED Fetus Data First Name Last Name Admitted to NICU Weight (g) Sex Living Outcome Pediatric Complications Fetus ID Race Codes Race Delivery Type , Induced 54287 Ollie Calculation Initial Ollie Date Initial Exam Date Initial Exam Provider Initial Ultrasound Date Last Menstrual Period Date Ultra Sound Weeks Gestation 0 Eighteen To Twenty Week Ollie Update Ultra Sound Date Fundal Height At Umbil Quickening Date Ultra Sound Latest Weeks Gestation Final Ollie Confirmed By Final Ollie Confirmed Date Final Ollie Date Ultra Sound Latest Days Gestation 0 0 Menstrual History Last Menstrual Date Menses Monthly On Bcp Conception Prior Menses Frequency Hcg Plus Date Menarche Onset Age Delivery Information Delivery Date Delivery Type Labor Anesthesia Weeks Gestation Incision Type Labor Labor Length Hrs Delivered By Post Complications Tubal Sterilization Discharge Date Comments 1 Discharge Information Feeding Method Contraceptive Method Maternal HG B and HCT Levels
[2024-06-18 16:14] LABS: Thyroid Stimulating Hormone Reflex 0.423 uIU/mL (0.465-4.68)
[2024-06-18 16:47] LABS: Free T4 Free Thyroxine Reflex 0.99 ng/dL (0.78-2.19)
[2024-06-18 17:30] LABS: Total Triiodothyronine (T3) 1.29 NG/ML (0.97-1.69)
[2024-06-19 04:48] LABS: Progesterone <0.5 ng/mL
[2024-06-19 18:08] LABS: FSH 97.5 mIU/mL; Triiodothyronine T3 Free 3.1 pg/mL (2.3-4.2)
== END 2024-06-18 13:12 | disposition home or self-care (01) ==
LOC: ANHLAB 13:12
PROVIDERS: PCP Family Medicine; Visit Provider Obstetrics & Gynecology
DX: E04.1 Nontoxic single thyroid nodule (principal); R23.2 Flushing
CPT/HCPCS: 36415; 82670; 83001; 83002; 84144; 84439; 84443; 84480; 84481

== ENCOUNTER 2024-06-19 01:37 | Emergency (ER) | payer OTHER, SELFPAY ==
--- NOTE | ~2024-06-19 | CT_ITS ---
CT of the Abdomen and Pelvis: Indication: Abdominal pain Technique: 2.5 mm axial scans were obtained through the abdomen and pelvis following intravenous adm inistration of 100 cc of Omnipaque 350. Dose reduction technique was used on this scan by utilizing a utomated exposure control and iterative reconstruction technique. The dose-length product (DLP) was 1 82.22 mGy-cm. COMPARISON: 01/05/2024 Findings: Scans through the lung bases are unremarkable. The liver, spleen, pancreas, gallbladder, adrenals and kidneys are within normal limits. No evidence of aortic aneurysm. No lymphadenopathy. No bowel obstruction or bowel wall thickening. There is no evidence to suggest acute appendicitis. Images through the pelvis were performed. Urinary bladder unremarkable. No pelvic mass seen. No ascit es. Impression: No significant abnormalities seen. Reviewed, dictated and finalized at [facility]. R PACKER Impression: No significant abnormalities seen.
--- OUTSIDE RECORDS SUMMARY | 2024-06-19 01:40 | XMS_ITS | Clinical Summary ---
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
--- OUTSIDE RECORDS SUMMARY | 2024-06-19 01:40 | XMS_ITS | CONTINUITY OF CARE DOCUMENT ---
Author Name raza gregoryramila Address Unknown Organization [facility] Address [address] [facility] [address] [place] [address] Phone [phone] Care Team Providers Care Small Engine Mechanic Name Role Phone Farhan Gonzalez MD Unavailable MELCHOR MORALES MD Unavailable MELCHOR MORALES MD Unavailable PROBLEMS Condition Status Date Provider Notes Dizziness active [facility] INSURANCE PROVIDERS Payer name Policy type / Coverage type [place] red constitution party ID [facility] [id number] Other [id number] HISTORY OF PROCEDURES Procedure Date Procedure Name Provider Procedure Notes S tatus Adalbertoter, 24 or 48 Farhan Gonzalez MD c ompleted
--- OUTSIDE RECORDS SUMMARY | 2024-06-19 01:40 | XMS_ITS | Referral Summary ---
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
[2024-06-19 01:54] VITALS: BP 101/76; PULSE 83; RESP 14; TEMP 36.7; O2SAT 100
[2024-06-19 02:28] LABS: Basophils Percent Auto 0.4 % (0.2-1.2); Eosinophils Absolute Auto 0.1 K/mm3 (0-0.3); Eosinophils Percent Auto 0.7 % (0-4.4); Hemoglobin 12.9 g/dL (12.0-15.0); Immature Granulocyte Absolute 0.01 K/mm3 (0.00-0.031); Immature Granulocyte Percent A 0.1 % (0-0.5); Lymphocytes Absolute Auto 2.11 K/mm3 (0.9-3.2); Lymphocytes Percent Auto 29.3 % (18.3-44.2); Mean Corpuscular HGB Conc 33.1 g/dl (32-36); Mean Corpuscular Hemoglobin 31.6 pg (26-34); Mean Corpuscular Volume 95.6 fl (80-100); Mean Platelet Volume 10.8 fl (7.4-10.4); Monocytes Absolute Auto 0.5 K/mm3 (0.1-0.6); Monocytes Percent Auto 7.1 % (2.6-8.5); Neutrophils Absolute Auto 4.5 K/mm3 (1.3-6.7); Neutrophils Percent Auto 62.4 % (45.5-73.1); Platelet Count Result 210 k/mm3 (150-375); Red Blood Count 4.08 M/mm3 (4.2-5.4); Red Cell Distribution Width 13.3 % (11.5-14.5); White Blood Count 7.2 K/mm3 (4.5-10.0)
[2024-06-19 02:39] LABS: Alanine Aminotransferase 19 U/L (6-35); Alkaline Phosphatase 206 U/L (38-126); Anion Gap 7 mmol/L (4-12); Aspartate Amino Transferase 25 U/L (14-36); Bilirubin,Total 0.3 mg/dL (0.2-1.3); Blood Urea Nitrogen 14 mg/dL (7-17); Calcium 9.2 mg/dL (8.4-10.2); Carbon Dioxide 28 mmol/L (22-30); Chloride 104 mmol/L (98-107); Estimated CRCL calculation 82 ml/min; Estimated Glomerular Filt Rate > 60; Glucose 99 mg/dL (65-110); Lipase 406 U/L (23-300); Potassium 3.9 mmol/L (3.4-5.0); Sodium 139 mmol/L (137-145)
[2024-06-19 03:31] LABS: Add Urine Microscopic? YES; Appearance Urine Clear (Clear); Bacteria Urine None Seen /hpf; Bilirubin Urine Negative (Negative); Blood Urine Trace (Negative); Color Urine Yellow (Yellow); Glucose Urine UA Negative (Negative); Ketones Urine Negative (Negative); Leukocyte Esterase Ur Negative LEU/UL (Negative); Nitrate Urine Negative (Negative); Non Pathogenic Casts 0-2; Protein Urine Negative (Negative); Specific Grav Ur 1.022 (1.001-1.035); Squamous Epithelial Cell Urine None Seen /hpf (Few); Urobilinogen Urine 0.2 mg/dL (<2.0); WBC Urine 0-5 /hpf (0-3); pH Urine 5.5 (5.0-9.0)
[2024-06-19 04:41] VITALS: BP 104/75; PULSE 63; RESP 18; O2SAT 100
[2024-06-19 06:48] VITALS: BP 110/79; PULSE 74; RESP 18; O2SAT 100
--- OUTSIDE RECORDS SUMMARY | 2024-06-19 07:25 | XMS_ITS | Clinical Summary ---
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
--- OUTSIDE RECORDS SUMMARY | 2024-06-19 07:26 | XMS_ITS | CONTINUITY OF CARE DOCUMENT ---
Author Name raza gregoryramila Address Unknown Organization [facility] Address [address] [facility] [address] [place] [address] Phone [phone] Care Team Providers Care Corporate Vp Advertising & Online Name Role Phone Farhan Gonzalez MD Unavailable MELCHOR MORALES MD Unavailable MELCHOR MORALES MD Unavailable PROBLEMS Condition Status Date Provider Notes Dizziness active [facility] INSURANCE PROVIDERS Payer name Policy type / Coverage type [place] red democrat ID [facility] [id number] Other [id number] HISTORY OF PROCEDURES Procedure Date Procedure Name Provider Procedure Notes S tatus Adalbertoter, 24 or 48 Farhan Gonzalez MD c ompleted
--- OUTSIDE RECORDS SUMMARY | 2024-06-19 07:26 | XMS_ITS | Referral Summary ---
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
[2024-06-19 07:32] VITALS: BP 110/69; PULSE 72; RESP 18; O2SAT 100
[2024-06-19] MEDS: SODIUM CHLORIDE 0.9% IV 1,000 ML 999 ML IV CONT (07:42)
[2024-06-19] MEDS: MORPHINE SULFATE (*CRX) 4 MG/ML INJ IV PUSH (07:43)
[2024-06-19] MEDS: ONDANSETRON INJ 4 MG/2 ML VIAL IV PUSH (07:43)
[2024-06-19 09:22] VITALS: BP 127/94; PULSE 62; RESP 18; O2SAT 100
--- NOTE | 2024-06-19 10:42 | ED.GENADULT ---
HPI - General Adult General Chief complaint: Abdominal Pain Stated complaint: LEFT SIDE HURTS Time Seen by Provider: 06/19/24 07:06 History of Present Illness HPI narrative: patient is a 48-year-old female who presents emergency department with chief complaint of left flank pain and nausea. The patient reports that pain started yesterday reports that is not improved by anything reports it is worse with movement patient also reports a left lower quadrant of her abdomen. Patient denies fever denies diarrhea Related Data Allergies Allergy/AdvReac Type Severity Reaction Status Date / Time No Known Allergies Allergy Verified 06/19/24 01:38 Review of Systems Review of Systems: A 10 system review of systems was completed on the patient and is negative except for what is stated in the HPI. Nursing and ancillary documentation was reviewed. [facility] Past Medical History Medical History History of gastroesophageal reflux (GERD) Surgical History Surgical History History of colonoscopy S/P foot surgery, left Social History Social History Smoking packs per day: 2 Smoking cigarettes per day: 40.0 Years smoked: 20 Smoking pack-years: 40.00 Smoking status: Current every day smoker Tobacco type: cigarettes Alcohol intake: current Alcohol use details: socially Substance use: current Substance use type: marijuana Current Housing: Decline to Answer Concerned About Future Housing: Decline to Answer Difficulty Paying Gas/Electric Bills: Decline to Answer Difficulty Paying for Meds: Decline to Answer Currently Unemployed: Decline to Answer Education: Don't Know Difficulty w/ Childcare or Family Care: Decline to Answer Living arrangements: alone Occupation/Education: occupation 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 HEAD: Normocephalic, atraumatic. EYES: PERRLA and EOMI. ENT: Nares clear, no rhinorrhea or epistaxis. Mucous membranes moist. NECK: Supple. CHEST: Clear to auscultation. No respiratory distress. HEART: Regular rate and rhythm. No murmur heard. Normal peripheral pulses. ABDOMEN: Soft, nontender, nondistended, normal active bowel sounds. EXTREMITIES: Normal range of motion. No edema. SKIN: Warm, dry, no rash. NEURO: No focal deficits. Alert and oriented x3. PSYCH: Normal mood and affect. Course Vital Signs Vital signs: Vital Signs Temperature 36.7 C 06/19/24 01:54 Pulse Rate 83 06/19/24 01:54 Respiratory Rate 14 06/19/24 01:54 Blood Pressure 101/76 06/19/24 01:54 Pulse Oximetry 100 06/19/24 01:54 Temperature 36.7 C 06/19/24 01:54 Pulse Rate 62 06/19/24 09:22 Respiratory Rate 18 06/19/24 09:22 Blood Pressure 127/94 H 06/19/24 09:22 Pulse Oximetry 100 06/19/24 09:22 Medical Decision Making MDM Narrative Medical decision making narrative: differential diagnosis includes ureterolithiasis, UTI, pyelonephritis, intra-abdominal infection, diverticulitis, colitis, lumbar strain laboratory studies were obtained on the patient which showed normal CBC CMP was within normal limits lipase was 406 urinalysis was within normal limits CT scan showed no acute abnormalities Vital Signs Vital Signs: Vital Signs Temperature 36.7 C 06/19/24 01:54 Pulse Rate 83 06/19/24 01:54 Respiratory Rate 14 06/19/24 01:54 Blood Pressure 101/76 06/19/24 01:54 Pulse Oximetry 100 06/19/24 01:54 Temperature 36.7 C 06/19/24 01:54 Pulse Rate 62 06/19/24 09:22 Respiratory Rate 18 06/19/24 09:22 Blood Pressure 127/94 H 06/19/24 09:22 Pulse Oximetry 100 06/19/24 09:22 Lab Data 06/19/24 02:20 06/19/24 02:20 Labs: Lab Results 06/19/24 06/19/24 Range/Units 02:20 02:44 WBC 7.2 (4.5-10.0) K/mm3 RBC 4.08 L (4.2-5.4) M/mm3 Hgb 12.9 (12.0-15.0) g/dL Hct 39.0 (37.0-47.0) % MCV 95.6 (80-100) fl MCH 31.6 (26-34) pg MCHC 33.1 (32-36) g/dl RDW 13.3 (11.5-14.5) % Plt Count 210 (150-375) k/mm3 MPV 10.8 H (7.4-10.4) fl Immature Gran % (Auto) 0.1 (0-0.5) % Neut % (Auto) 62.4 (45.5-73.1) % Lymph % (Auto) 29.3 (18.3-44.2) % Kings % (Auto) 7.1 (2.6-8.5) % Eos % (Auto) 0.7 (0-4.4) % Baso % (Auto) 0.4 (0.2-1.2) % Lymph # (Auto) 2.11 (0.9-3.2) K/mm3 Kings # (Auto) 0.5 (0.1-0.6) K/mm3 Eos # (Auto) 0.1 (0-0.3) K/mm3 Baso # (Auto) 0.0 (0.0-0.1) K/mm3 Abs Immat Gran (auto) 0.01 (0.00-0.031) K/mm3 Absolute Neuts (auto) 4.5 (1.3-6.7) K/mm3 Absolute Nucleated RBC 0.000 (0.0-0.012) K/mm3 Nucleated RBC % 0.0 (0.0-0.2) % Sodium 139 (137-145) mmol/L Potassium 3.9 (3.4-5.0) mmol/L Chloride 104 (98-107) mmol/L Carbon Dioxide 28 (22-30) mmol/L Anion Gap 7 (4-12) mmol/L BUN 14 (7-17) mg/dL Creatinine 0.63 L (0.7-1.0) mg/dL Estim Creat Clear Calc 82 ml/min Estimated GFR > 60 (59 - ) Glucose 99 (65-110) mg/dL Calcium 9.2 (8.4-10.2) mg/dL Total Bilirubin 0.3 (0.2-1.3) mg/dL AST 25 (14-36) U/L ALT 19 (6-35) U/L Alkaline Phosphatase 206 H (38-126) U/L Total Protein 7.0 (6.3-8.2) g/dL Albumin 4.0 (3.5-5.1) g/dL Lipase 406 H (23-300) U/L Urine Color Yellow (Yellow) Urine Appearance Clear (Clear) Urine pH 5.5 (5.0-9.0) Ur Specific Shiro 1.022 (1.001-1.035) Urine Protein Negative (Negative) mg/dL Urine Glucose (UA) Negative (Negative) mg/dL Urine Ketones Negative (Negative) mg/dL Ur Blood (Man) Trace (Negative) Urine Nitrate Negative (Negative) Urine Bilirubin Negative (Negative) Urine Urobilinogen 0.2 (<2.0) mg/dL Leukocyte Esterase Rfl Negative (Negative) MISAEL/UL Urine RBC 3-5 H (0-2) /hpf Urine WBC 0-5 (0-3) /hpf Ur Squamous Epith Cells None seen (Few) /hpf Urine Bacteria None seen /hpf Urine Casts 0-2 Discharge Plan Discharge Clinical Impression: Left flank pain Patient Disposition: Home, Self-Care Condition: Stable Instructions: Antibiotic Form, Abdominal Pain (ED), Flank Pain (ED) Patient Language: Iranian Prescriptions: New cyclobenzaprine 10 mg tablet 10 mg PO TID PRN (Reason: muscle spasm) Qty: 21 0RF dicyclomine 20 mg tablet 20 mg PO QID PRN (Reason: abdominal discomfort) Qty: 20 0RF ondansetron 4 mg tablet,disintegrating 4 mg PO Q8H PRN (Reason: nausea and vomiting) Qty: 10 0RF No Action estradiol-norethindrone acet 0.5-0.1 mg tablet 1 tablet PO DAILY Qty: 84 0RF Follow-up/Referrals: PHYSICIAN,CLOTH FINISHER [Primary Care Provider] - Yehuda Vera MD [Physician] - Time of Disposition: 10:48
== END 2024-06-19 11:01 | disposition home or self-care (01) ==
PROVIDERS: Student in an Organized Health Care Education/Training Program; Emergency Provider Emergency Medicine
DX: R10.32 Left lower quadrant pain (principal); K21.9 Gastro-esophageal reflux disease without esophagitis; F17.210 Nicotine dependence, cigarettes, uncomplicated
CPT/HCPCS: 36415; 74177; 80053; 81001; 83690; 85025; 96360; 96374; 96375; 99284; J2270; J2405; J7030; Q9967

== ENCOUNTER 2024-06-28 08:27 | Outpatient (CLI) | payer OTHER, SELFPAY ==
--- NOTE | ~2024-06-28 | MMUS_ITS ---
EXAMINATION: MM diagnostic rosa BI w john paul, US breast BI complete HISTORY: Palpable breast lump TECHNIQUE: Additional 3-D tomosynthesis images of the breasts were performed and synthetic 2-D images were generated. CAD analysis was submitted and interpreted. High resolution bilateral complete breas t ultrasound was performed. COMPARISON: None BREAST PARENCHYMAL COMPOSITION: Dense: The breasts are extremely dense, which lowers the sensitivity of mammography. FINDINGS: MAMMOGRAPHIC FINDINGS: There are no suspicious masses, calcifications or architectural distortion in either breast to sugges t malignancy. ULTRASOUND: Complete US of all 4 quadrants of the breast/s and retroareolar region was reviewed. And 9:00, 2 cm f rom the nipple in the right breast there is a 5 mm cyst. No suspicious masses in either breast to sug gest malignancy IMPRESSION: 1. No evidence for malignancy in either breast. 2. Routine yearly screening mammogram and regular clinical breast examination are recommended. BI-RADS Category 2: Benign finding(s). Reviewed, dictated and finalized at location B. R MILL OPERATOR IMPRESSION: 1. No evidence for malignancy in either breast. 2. Routine yearly screening mammogram and regular clinical breast examination a re recommended. BI-RADS Category 2: Benign finding(s).
--- OUTSIDE RECORDS SUMMARY | 2024-06-28 08:35 | XMS_ITS | Data Portability ---
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 Plan of Treatment Reminders Order Date Submit Date Provider Last Modified By Organization Details Last Modified Time Details Appointments None recorded . Lab vaginal pathogen s panel, MITESH+prob e, vaginal fluid 2023 024 [facility], [address], [place], [address], 4 06:20:19 cytology report, thin prep, smear or scraping , cervical or vaginal 2023 024 [facility], [address], [place], [address], 4 17:09:19 vaginal pathogen s panel, MITESH+prob e, vaginal fluid 2021 022 [facility], [address], [place], [address], 2 08:09:24 pap, IG + reflex HPV 2021 022 [facility]USH [facility], [address], [place], [address], 2 03:07:35 pregnanc y test, urine 2018 Jeremiah burks In-Office Order, Internal Use Only DO Not Attach Compendium DO Not Attach Compendium, Do Not Delete/merge, [id number] 9 17:02:31 urinalys is, dipstick 2018 019 In-Office Order, Internal Use Only DO Not Attach Compendium DO Not Attach Compendium, Do Not Delete/merge, [id number] 9 16:28:44 bacteria l vaginosi s panel, vaginal 2018 019 [facility], [address] [place] [address], [address], [place], [address], 9 14:07:40 pregnanc y test, urine 2018 019 In-Office Order, Internal Use Only DO Not Attach Compendium DO Not Attach Compendium, Do Not Delete/merge, [id number] 9 16:28:44 urinalys is, dipstick 2017 018 kimmie In-Office Order, Internal Use Only DO Not Attach Compendium DO Not Attach Compendium, Do Not Delete/merge, [id number] 8 17:39:07 CT + NG + TV, DNA, urine/sw ab 2017 018 [facility], [address], [place], [address], 8 14:14:24 Referral general surgeon referral 2017 018 kimmie Godfrey MD, [address] [facility], [address], [place], [address], 8 17:39:18 Procedures None recorded . Surgeries None recorded . Imaging MAMMO, diagnost ic, digital, bilatera l 2023 024 [email or web address] [facility] ([facility]), [address] [facility], [place], [address], 5 13:08:04 US, breast, bilatera l - 3.5cmx4c m mass on R breast, Upper Outer quadrant [address] ([facility]), [address] [place], [address], 5 13:08:04 US, pelvis, transabd ominal + transvag inal [address] ([facility]), [address] [place], [address], 5 14:08:24 MAMMO, screenin g, bilatera l 2021 022 [facility] ([facility] Sched[facility]), [address] [place], [address], 3 12:40:10 US, pelvis, transabd ominal + transvag inal 2021 022 [facility] ([facility]), [address] [place], [address], 3 12:40:10 MAMMO, screenin g, bilatera l [address] ([facility] Scheduling), [address] [place], [address], 9 16:28:44 Medication Orders metronid azole 0.75 % (37.5 mg/5 gram) vaginal gel 2023 024 [facility] #[facility], [address] [place], [id number], 4 15:51:20 ibuprofe n 800 mg tablet 2023 024 [facility] #45509, [address] [place], [place], [id number], 4 15:51:21 Slynd 4 mg (28) tablet [address] [facility], [address] [place] [address], [address], 3 14:14:50 medroxyp rogester one 150 mg/mL intramus cular suspensi on 2018 019 [facility]10710, [address] [place], [place], [id number], 2 09:38:21 multivit hendrickson tablet 2018 019 [facility] #97496, [address] [place], [place], [id number], 2 09:39:19 Calcium with Vitamin D 600 mg-10 mcg (400 unit) tablet [address] [facility]30222, [address] [place], [place], [id number], 2 10:03:59 omeprazo le 40 mg capsule, delayed release 2018 019 [facility] #56134, [address] [place], [place], [id number], 2 09:39:53 norethin drone (contrac eptive) 0.35 mg tablet 2018 019 [facility], [address] [place], [place], [id number], 4 15:18:45 Lo Loestrin Fe 1 mg-10 mcg (24)/10 mcg (2) tablet 2017 018 [facility] #26043, [address] [place], [place], [id number], 9 11:39:13 calcium 600 mg (as carbonat e)-vitam in D3 20 mcg (800 unit) tablet 2017 018 [facility] #64983, [address] [place], [place], [id number], 9 11:39:01 multivit hendrickson tablet 2017 018 [facility] #38571, [address] [place], [place], [id number], 09:39:19 Patient TargetsNo targets recorded. Patient Instructions Encounter Date Encounter Id Patient Instructions Last Modified By Organization Details Last Modified Time 11/28/2017 [id number] inguinal hernia: care instructions [email or web address] Not available 11/28/2017 17:39:07 02/05/2019 [id number] Well Visit, Ages 18 to 65: Care Instructions Not available 02/05/2019 12:06:45 Quitting Tobacco : Care Instructions Not available 02/05/2019 12:03:33 gastroesophageal reflux disease (GERD): care instructions Not available 02/05/2019 12:16:35 04/29/2022 [id number] Quitting Tobacco : Care Instructions Not available 04/29/2022 10:12:34 Well Visit, Ages 18 to 65: Care Instructions Not available 04/29/2022 10:12:19 learning about breast cancer screening Not available 04/29/2022 10:12:25 SANTY Gan Discussed with JAYANT [email or web address] Not available 04/29/2022 16:20:04 02/05/2024 [id number] breast self-exam : care instructions Not available 02/05/2024 15:51:12 learning about cervical cancer screening [email or web address] Not available 02/05/2024 15:51:12 eating healthy foods: care instructions [email or web address] Not available 02/05/2024 15:51:12 Reason for Referral General Surgeon Referral for Right inguinal hernia Referring Physician: Saroj Salazar, CIRCUS ROUSTABOUT, Encounter Date: 11/28/2017 Results Created Date Observation Date Name Description Value Unit Range Abnormal Flag Note LastModifiedBy Organization Detail LastModifiedTime 02/16/20 19 02/15/2019 pregn breanna test, urine HCG negati ve Not Available In-Office Order Internal Use Only DO Not Attach Compendium DO Not Attach Compendium, Do Not Delete/merge, [id number] 02/15/2019 14:58:35 02/06/2002/05/2019 pregn breanna test, urine HCG negati ve Not Available In-Office Order Internal Use Only DO Not Attach Compendium DO Not Attach Compendium, Do Not Delete/merge, [id number] 02/05/2019 11:22:24 02/06/2002/05/2019 urina lysis , dipst ick Leukocytes Negati ve Not Available In-Office Order Internal Use Only DO Not Attach Compendium DO Not Attach Compendium, Do Not Delete/merge, [id number] 02/05/2019 11:22:22 02/06/2002/05/2019 urina lysis , dipst ick Nitrite negati ve Not Available In-Office Order Internal Use Only DO Not Attach Compendium DO Not Attach Compendium, Do Not Delete/merge, [id number] 02/05/2019 11:22:22 02/06/2002/05/2019 urina lysis , dipst ick Urobilinogen .2 Not Available In-Of fice Order Internal Use Only DO Not Attach Compendium DO Not Attach Compendium, Do Not Delete/merge, [id number] 02/05/2019 11:22:22 02/06/2002/05/2019 urina lysis , dipst ick Protein Negati ve Not Available In-Office Order Internal Use Only DO Not Attach Compendium DO Not Attach Compendium, Do Not Delete/merge, [id number] 02/05/2019 11:22:22 02/06/2002/05/2019 urina lysis , dipst ick pH 5.5 Not Available In-Office Order Internal Use Only DO Not Attach Compendium DO Not Attach Compendium, Do Not Delete/merge, [id number] 02/05/2019 11:22:22 02/06/2002/05/2019 urina lysis , dipst ick Blood Small Not Available In-Office Order Internal Use Only DO Not Attach Compendium DO Not Attach Compendium, Do Not Delete/merge, 02/05/2019 11:22:22 02/06/2002/05/2019 urina lysis , dipst ick Specific Gage 1.025 Not Available In-Off ice Order Internal Use Only DO Not Attach Compendium DO Not Attach Compendium, Do Not Delete/merge, 02/05/2019 11:22:22 02/06/2002/05/2019 urina lysis , dipst ick Ketone Negati ve Not Available In-Office Order Internal Use Only DO Not Attach Compendium DO Not Attach Compendium, Do Not Delete/merge, 02/05/2019 11:22:22 02/06/2002/05/2019 urina lysis , dipst ick Bilirubin Negati ve Not Available In-Office Order Internal Use Only DO Not Attach Compendium DO Not Attach Compendium, Do Not Delete/merge, 02/05/2019 11:22:22 02/06/2002/05/2019 urina lysis , dipst ick Glucose Negati [...] Not Attach Compendium, Do Not Delete/merge, 11/28/2017 17:25:11/29/19 18 11/28/2017 urina lysis , dipst ick Protein 30 Not Available In-Office Order Internal Use Only DO Not Attach Compendium DO Not Attach Compendium, Do Not Delete/merge, 11/28/2017 17:25:11/29/19 18 11/28/2017 urina lysis , dipst ick pH 5.0 Not Available In-Office Order Internal Use Only DO Not Attach Compendium DO Not Attach Compendium, Do Not Delete/merge, 11/28/2017 17:25:11/29/19 18 11/28/2017 urina lysis , dipst ick Blood Large Not Available In-Office Order Internal Use Only DO Not Attach Compendium DO Not Attach Compendium, Do Not Delete/merge, 11/28/2017 17:25:11/29/19 18 11/28/2017 urina lysis , dipst ick Specific Gage 1.025 Not Available In-Off ice Order Internal Use Only DO Not Attach Compendium DO Not Attach Compendium, Do Not Delete/merge, 11/28/2017 17:25:11/29/19 18 11/28/2017 urina lysis , dipst ick Ketone Negati ve Not Available In-Office Order Internal Use Only DO Not Attach Compendium DO Not Attach Compendium, Do Not Delete/merge, 11/28/2017 17:25:11/29/19 18 11/28/2017 urina lysis , dipst ick Bilirubin Small Not Available In-Offic e Order Internal Use Only DO Not Attach Compendium DO Not Attach Compendium, Do Not Delete/merge, 11/28/2017 17:25:11/29/19 18 11/28/2017 urina lysis , dipst ick Glucose Negati ve Not Available In-Office Order Internal Use Only DO Not Attach Compendium DO Not Attach Compendium, Do Not Delete/merge, 11/28/2017 17:25:11/30/19 18 12/01/2017 CT + NG + TV, DNA, urine /swab chlamydia by MITESH NEGATI VE negati ve Not Available [facility] ([facility]) [address] [place], [address], 12/05/2017 14:14:23 11/30/19 18 12/01/2017 CT + NG + TV, DNA, urine /swab gonococcus by MITESH NEGATI VE negati ve Not Available [facility] ([facility]) [address] [place], [address], 12/05/2017 14:14:23 11/30/19 18 12/01/2017 CT + NG + TV, DNA, urine /swab trich vag by MITESH NEGATI VE negati ve Not Available [facility] ([facility]) [address] [facility], [place], [address], 12/05/2017 14:14:23 02/07/20 19 02/08/2019 bacte rial vagin osis panel , vagin al chlamydia trachomatis, MITESH NEGATI VE negati ve Not Available [facility] ([facility]) [address] [place], [address], 02/10/2019 14:07:40 02/07/20 19 02/08/2019 bacte rial vagin osis panel , vagin al neisseria gonorrhoeae, MITESH NEGATI VE negati ve Not Available [facility] ([facility]) [address] [place], [address], 02/10/2019 14:07:40 02/07/20 19 02/09/2019 bacte rial vagin osis panel , vagin al atopobium vaginae MODERA TE - 1 score Not Available [facility] ([facility]) [address] [place], [address], 02/10/2019 14:07:40 02/07/20 19 02/09/2019 bacte rial vagin osis panel , vagin al bvab 2 LOW - 0 score Not Available [facility] ([facility]) [address] [facility], [place], [address], 02/10/2019 14:07:40 02/07/2002/09/2019 bacte rial vagin osis [...] e yadira cteri stics deter mined by [facility]. It has not been clear ed or appro eldon by the Food and Drug Admin istra tion. The FDA has deter mined that such clear ance or appro alexei is not neces chasity. Not Available [facility] ([facility]) [address] [facility], [place], [address], 02/10/2019 14:07:40 02/07/2002/09/2019 bacte rial vagin osis panel , vagin al chaz albicans, MITESH NEGATI VE negati ve Not Available [facility] ([facility]) [address] [place], [address], 02/10/2019 14:07:40 02/07/2002/09/2019 bacte rial vagin osis panel , vagin al chaz glabrata, MITESH NEGATI VE negati ve This test was devel oped and its perfo rmanc e yadira cteri stics deter mined by [facility]. It has not been clear ed or appro eldon by the Food and Drug Admin istra tion. The FDA has deter mined that such clear ance or appro alexei is not neces chasity. Not Available [facility] ([facility]) [address] [facility], [place], [address], 02/10/2019 14:07:40 02/07/20 19 02/09/2019 bacte rial vagin osis panel , vagin al trich vag by MITESH NEGATI VE negati ve Not Available [facility] ([facility]) [address] [facility], [place], [address], 02/10/2019 14:07:40 02/07/20 19 02/10/2019 bacte rial vagin osis panel , vagin al hsv 1 MITESH NEGATI VE negati ve Not Available [facility] ([facility]) [address] [place], [address], 02/10/2019 14:07:40 02/07/20 19 02/10/2019 bacte rial vagin osis panel , vagin al hsv 2 MITESH NEGATI VE negati ve Not Available [facility] ([facility]) [address] [place], [address], 02/10/2019 14:07:40 04/29/20 22 05/02/2022 NUSWA B VAGIN ITIS PLUS (VG+) atopobium vaginae Low - 0 score Not Available [facility] ([facility]) [address] [place], [address], 05/02/2022 08:09:24 04/29/20 22 05/02/2022 NUSWA B VAGIN ITIS PLUS (VG+) bvab 2 Low - 0 score Not Available [facility] ([facility]) [address] [place], [address], 05/02/2022 08:09:24 04/29/20 22 05/02/2022 NUSWA B [...] Drug Admin istra tion. Not Available [facility] ([facility]) [address] [place], [address], 05/02/2022 08:09:24 04/29/20 22 05/02/2022 NUSWA B VAGIN ITIS PLUS (VG+) chaz albicans, MITESH Negati ve negati ve Not Available [facility] ([facility]) [address] [place], [address], 05/02/2022 08:09:24 04/29/20 22 05/02/2022 NUSWA B VAGIN ITIS PLUS (VG+) chaz glabrata, MITESH Negati ve negati ve Not Available [facility] ([facility]) [address] [place], [address], 05/02/2022 08:09:24 04/29/20 22 05/02/2022 NUSWA B VAGIN ITIS PLUS (VG+) trich vag by MITESH Negati ve negati ve Not Available [facility] ([facility]) [address] [place], [address], 05/02/2022 08:09:24 04/29/20 22 05/02/2022 NUSWA B VAGIN ITIS PLUS (VG+) chlamydia trachomatis, MITESH Negati ve negati ve Not Available [facility] ([facility]) [address] [place], [address], 05/02/2022 08:09:24 04/29/20 22 05/02/2022 NUSWA B VAGIN ITIS PLUS (VG+) neisseria gonorrhoeae, MITESH Negati ve negati ve Not Available [facility] ([facility]) [address] [place], [address], 05/02/2022 08:09:24 04/29/20 22 05/02/2022 IGP,A PTIMA HPV,A GE GDLN age gdln acog testing 30-65 Not Available [facility] ([facility]) [address] [place], [address], 05/12/2022 03:07:35 04/29/20 22 05/11/2022 HPV GENOT YPES 16/18 ,45 HPV genotype 16 Negati ve negati ve Not Available [facility] ([facility]) [address] [place], [address], 05/12/2022 03:07:37 04/29/20 22 05/11/2022 HPV GENOT YPES 16/18 ,45 HPV genotype 18,45 Negati ve negati ve Not Available [facility] ([facility]) [address] [facility], [place], [address], 05/12/2022 03:07:37 04/29/20 22 05/03/2022 IGP, APTIM A HPV, RFX 16/18 ,45 HPV aptima Positi ve negati ve abnormal This nucle ic acid ampli ficat ion test detec ts fourt een high- risk HPV types (16,1 8,31, 33,35 ,39,4 5,51, 52,56 ,58,5 9,66, 68) witho ut diffe renti ation . Not Available [facility] ([facility]) [address] [place] [address], [address], 05/12/2022 03:07:36 04/29/20 22 05/10/2022 IGP, APTIM A HPV, RFX 16/18 ,45 diagnosis: Commen t NEGAT EZ FOR INTRA EPITH ELIAL LESIO N OR JOSE PALENCIA . Not Available [facility] ([facility]) [address] [place], [address], 05/12/2022 03:07:36 04/29/20 22 05/10/2022 IGP, APTIM A HPV, RFX 16/18 ,45 specimen adequacy: Orquidea frost Satis facto ry for evalu ation . No endoc ervic al compo nent is ident ified . Not Available [facility] ([facility]) [address] [place], [address], 05/12/2022 03:07:36 04/29/20 22 05/10/2022 IGP, APTIM A HPV, RFX 16/18 ,45 clinician provided ICD10: Orquidea frost Z01.4 19 Not Available [facility] ([facility]) [address] [place], [address], 05/12/2022 03:07:36 04/29/20 22 05/10/2022 IGP, APTIM A HPV, RFX 16/18 ,45 performed by: Pia Oshea (ASCP ) Not Available [facility] ([facility]) [address] [place], [address], 05/12/2022 03:07:36 04/29/20 22 05/10/2022 IGP, APTIM A HPV, RFX 16/18 ,45 . . Not Available [facility] ([facility]) [address] [place], [address], 05/12/2022 03:07:36 04/29/20 22 05/10/2022 IGP, APTIM [...] ts do occur . Not Available [facility] ([facility]) [address] [facility], [place], [address], 05/12/2022 03:07:36 04/29/20 22 05/10/2022 IGP, APTIM A HPV, RFX 16/18 ,45 test methodology: Commen t This liqui d based ThinP rep(R ) pap test was bebo hardin with the use of an image guide modesto edwards. Not Available [facility] ([facility]) [address] [place], [address], 05/12/2022 03:07:36 04/29/20 22 05/10/2022 IGP, APTIM A HPV, RFX 16/18 ,45 HPV genotype reflex Commen t Crite telma met, see HPV Genot ype resul ts. Not Available [facility] ([facility]) [address] [facility], [place], [address], 05/12/2022 03:07:36 02/05/20 24 02/06/2024 NUSWA B VAGIN ITIS PLUS (VG+) atopobium vaginae HIGH - 2 score abnormal Not Available [facility] ([facility]) [address] [place], [address], 02/07/2024 06:20:19 02/05/20 24 02/06/2024 NUSWA B VAGIN ITIS PLUS (VG+) bvab 2 HIGH - 2 score abnormal Not Available [facility] ([facility]) [address] [place], [address], 02/07/2024 06:20:19 02/05/20 24 02/06/2024 NUSWA B VAGIN ITIS PLUS (VG+) megasphaera 1 LOW - 0 score Calcu late total score by addin g the 3 indiv idual bacte rial vagin [...] prese nce of BV. Not Available [facility] ([facility]) [address] [facility], [place], [address], 02/07/2024 06:20:19 02/05/20 24 02/06/2024 NUSWA B VAGIN ITIS PLUS (VG+) chaz albicans, MITESH NEGATI VE negati ve Not Available [facility] ([facility]) [address] [place], [address], 02/07/2024 06:20:19 02/05/20 24 02/06/2024 NUSWA B VAGIN ITIS PLUS (VG+) chaz glabrata, MTIESH NEGATI VE negati ve Not Available [facility] ([facility]) [address] [place], [address], 02/07/2024 06:20:19 02/05/20 24 02/07/2024 NUSWA B VAGIN ITIS PLUS (VG+) trich vag by MITESH NEGATI VE negati ve Not Available [facility] ([facility]) [address] [place], [address], 02/07/2024 06:20:19 02/05/20 24 02/07/2024 NUSWA B VAGIN ITIS PLUS (VG+) chlamydia trachomatis, MITESH NEGATI VE negati ve Not Available [facility] ([facility]) [address] [place], [address], 02/07/2024 06:20:19 02/05/20 24 02/07/2024 NUSWA B VAGIN ITIS PLUS (VG+) neisseria gonorrhoeae, MITESH NEGATI VE negati ve Not Available [facility] ([facility]) [address] [facility], [place], [address], 02/07/2024 06:20:19 02/05/20 24 02/06/2024 IGP, APTIM A HPV, RFX 16/18 ,45 HPV aptima NEGATI VE negati ve This nucle ic acid ampli ficat ion test detec ts fourt een high- risk HPV types (16,1 8,31, 33,35 ,39,4 5,51, 52,56 ,58,5 9,66, 68) witho ut diffe renti ation . Not Available [facility] ([facility]) [address] [facility], [place], [address], 02/08/2024 17:09:19 02/05/20 24 02/08/2024 IGP, APTIM A HPV, RFX 16/18 ,45 diagnosis: COMMEN T NEGAT EZ FOR INTRA EPITH ELIAL LESIO N OR JOSE PALENCIA . Not Available [facility] ([facility]) [address] [facility], [place], [address], 02/08/2024 17:09:19 02/05/20 24 02/08/2024 IGP, APTIM A HPV, RFX 16/18 ,45 specimen adequacy: COMMEN T Satis facto ry for evalu ation . Endoc ervic al and/o r squam ous metap lasti c cells (endo cervi rodríguez compo nent) are prese nt. Not Available [facility] ([facility]) [address] [facility], [place], [address], 02/08/2024 17:09:19 02/05/20 24 02/08/2024 IGP, APTIM A HPV, RFX 16/18 ,45 clinician provided ICD10: COMMEN T Z01.4 19 Not Available [facility] ([facility]) [address] [facility], [place], [address], 02/08/2024 17:09:19 02/05/20 24 02/08/2024 IGP, APTIM A HPV, RFX 16/18 ,45 performed by: Pia Wallace (ASCP ) Not Available [facility] ([facility]) [address] [place], [address], 02/08/2024 17:09:19 02/05/20 24 02/08/2024 IGP, APTIM A HPV, RFX 16/18 ,45 . . Not Available [facility] ([facility]) [address] [place], [address], 02/08/2024 17:09:19 02/05/20 24 02/08/2024 IGP, APTIM [...] ts do occur . Not Available [facility] ([facility]) [address] [place], [address], 02/08/2024 17:09:19 02/05/20 24 02/08/2024 IGP, APTIM A HPV, RFX 16/18 ,45 test methodology: ORQUIDEA Frost This liqui d based ThinP rep(R ) pap test was scree wilfred with the use of an image guide modesto arrieta Not Available [facility] ([facility]) [address] [place], [address], 02/08/2024 17:09:19 02/05/20 24 02/08/2024 IGP, APTIM A HPV, RFX 16/18 ,45 HPV genotype reflex COMMEN T Crite telma not met, HPV Genot ype not perfo rmed. Not Available [facility] ([facility]) [address] [facility], [place], [address], 02/08/2024 17:09:19 Result Notes None recorded. Problems Name Problem SNOMED Code Status Onset Date Resolution Date Notes Provider Name and Address Organization Details Recorded Time Lower abdominal pain 14626087 Active Ilda ChristiansonISABELLE villegas null, [place] - [facility] 5 10:23:51 Dyspnea 189364157 Active Ilda Christiansonshalexander ISABELLE [place], [place] [facility] 5 10:23:51 Goiter 7877362 Active Aruna Mo LPN [place], [place] - [facility] 6 11:30:54 Chest pain 03806813 Active Ilda ChristiansonshISABELLE munoz [place], [place] [facility] 5 10:23:51 Blood in urine 87220290 Active Ilda Jin [place], [place] [facility] 5 10:23:51 Irritable bowel syndrome 77565843 Active Saroj Salazar [place] [facility] 5 11:01:06 Constipat ion 63793676 Active Saroj Salazar [place] [facility] 5 13:06:51 Bacterial vaginosis 363361782 Completed 02/05/2019 SANTY GARCIA Attn: Robin g,[address] [facility], [place], [address], [place] - [facility] 9 17:04:10 Pain in left foot 415057847073 107 Active Audi Garcia MD Attn: Robin g,[address] [facility], [place], [address], [place] [facility] 6 19:06:03 Asthma 348718386 Active Audi Garcia MD Attn: Accountjovanna g,[address] [facility], [place], [address], [place] - [facility] 6 19:06:03 Candidias is of vagina 82065044 Completed 201602/15/2017 SANTY GARCIA Attn: Robin spivey,[address] [facility], [place], [address], [facility] 9 17:04:14 Depressiv e disorder 57722930 Active 2016 Saroj more, [facility] 7 16:52:46 Smoker 48411001 Active 2016 Saroj more, [facility] 7 16:52:53 Candidias is of vagina 02887973 Completed 201602/05/2019 SANTY GARCIA Attn: Robin spivey,[address] [facility], [place], [address], [facility] 9 17:04:14 Problem Notes None recorded. Procedures Surgical History Date Name Laterality Status Provider Name and Address Organization Details Recorded Time 2 Date of Last Pap Smear completed Toyin Webster MA [facility] 04/29/2022 09:41:28 2 Orthopedic Surgery completed Ilda Jin MA [facility] 04/30/2015 10:29:41 Knee Surgery completed Audi Garcia MD Attn: Accounting,[address] [facility], [place], [address], [facility] 03/10/2015 15:13:26 Imaging Results None recorded. [...] Updated DateTime 11/28/2017 167.64 cm 19 kg/m2 15452.9 g 122 mm[Hg] 76 mm[Hg] Ilda Jin MA [facility] 8 17:17:46 Date Recorded Body weight Body temperature Heart rate Oxygen saturation Oxygen saturation in Arterial blood by Pulse oximetry Systolic blood pressure Diastolic blood pressure Provider Name and Address Organization Details Last Updated DateTime 9 17754.9 g 98.3 [degF] 78 /min 98 % 98 % 106 mm[Hg] 68 mm[Hg] Feroz Giordano MA [facility] 9 11:38:09 Date Recorded Body height Provider Name an d Address Organization Details Last Updated DateTime 02/15/2019 167.64 cm Ilda Jin MA [facility] 2018 14:38:43 Date Recorded Body height Body mass index (BMI) Body weight Systolic blood pressure Diastolic blood pressure Provider Name and Address Organization Details Last Updated DateTime 04/29/2022 167.64 cm 20.2 kg/m2 62096.48 g 114 mm[Hg] 74 mm[Hg] Toyin Webster MA [facility] 2 09:44:53 Date Recorded Body height Body mass index (BMI) Body weight Oxygen saturation Oxygen saturation in Arterial blood by Pulse oximetry Heart rate Systolic blood pressure Diastolic blood pressure Provider Name and Address Organization Details Last Updated DateTime 4 167.64 cm 18.6 kg/m2 15316.2 g 98 % 98 % 69 /min 138 mm[Hg] 80 mm[Hg] Dee Dee Salazar MA [facility] 4 15:22:21 Social History Question Answer Notes LastModified by Organizat ion Details LastModified Time Tobacco Smoking Status Current Every Day Smoker August ISABELLE Alexander [facility] 03/10/2015 14:58:51 Do You Have An Advance [...] available 03/10/2015 Are You Currently Employed? Yes [employer] Information not available 04/30/2015 What Type Of Diet Are You Following? REGULAR Information not available 04/30/2015 Do You Or Have You Ever Used E-cigarettes Or Vape? Never Used Electronic Cigarettes Information not available 02/05/2019 Education 11 Information no t available 04/30/2015 What Is Your Occupation? [employer] Information not available 04/30/2015 [...] N Kidney Cyst N Hyperthyroidism N Blood Transfusion N MRSA N Blood disorders N Emphysema N COPD N Blood Clots N Depression Y Pneumonia N Peripheral Arterial Disease N Premature N Edema N TIA N Headaches/Migraines N Anxiety Disorder N Obesity N Infertility N Polyps N Acid Reflux (GERD) N Hematuria N Stroke N Neck Injury N Polio N Hospital Admission other than N Neurologic Disorder N Other Sleep Disorders N Rheumatoid Arthritis N Fibromyalgia N Abdominal Aortic Aneurysm Repair N Kidney Disease N Heart Conditions N Heart Disease/Heart Problems N Hospitalizations N Brain Tumors N Acne N Eating Disorder N Skin Problems N Constipation N Meningitis N Tuberculosis N Cerebral Palsy N Myocardial Infarction N Asthma Y Substance Abuse N Peripheral Vascular Disease N Vertigo N Sleep Disorder N Cirrhosis N Pulmonary Embolism N Chicken Pox N Flomax Use Past or Present N Hematologic Disease N Anxiety/Depression N Thyroid Disease N Colon Cancer N Glaucoma N Lung Disease N Developmental or Behavioral Disorders N Bipolar N Pacemaker N Diverticulitis/Diverticulosis N Anesthesia Complications N Orthopedic Problems N Orthotics N Head Injury/Concussion N Congenital Anomalies N Wilson Bite N Chronic Kidney Disease N Endometriosis N Liver Disease N Dialysis N Schizophrenia N Speech Delay N Chronic Obstructive Pulmonary Disease N Parkinson's Disease N Thyroid Problems N GI Problems N Developmental Delay N Anemia N Immune System Disorder N Multiple Sclerosis N Colon Polyps N Heart Attack ([place]) N Diabetes N Cardiomyopathy N Blood Transfusions N Heart Problems/Murmur N Eye Trauma N Congestive Heart Failure (CHF) N Valvular Heart Disease N Hyperlipidemia N Double Vision N Abuse/Domestic Violence N Hepatitis B N Lupus N Epilepsy/Seizures N Reflux/GERD N Aneurysm N Bronchitis N Heart Disease N Hypertension N Pre-Eclampsia N Heart Failure N Other Y Gout [...] N Kidney Failure N Ocular trauma N Dementia N Diverticulitis N Sleep Apnea N Mental Problems N [...] SNOMED-CT Code Diagnosis ICD10 Code Diagnosis Note [id number] MD Zenaida Maguire (Adult Med) [address] [place] [address] [phone] 0 03/10/2015 14:40:35 03/10/2015 17:55:00 Lower abdominal pain 01747857 R10.30 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 She describes some symptoms of a UTI althoughI am not convinced that she has a antoinette UTI General ex amination of patient 954124677 Z00.8 39 y/o BF who presents to this office, she says she was seen in this office ~2011 by the gynecologi stDr. Farrell. She was in the ER at [facility] ~ 8 months at which time she was told she had an ovarian cyst on US and she was given pain meds and told that it would dissolve. About 2 months ago she was seen in the ER at [facility] and she was told she had emphysema. Dyspnea 634185868 R06.00 Tobacco cessation was discussed, obtain PFTs, continue albuterol and add Qvar She reports a history of childhood asthma, she then started smoking 10 years ago Goiter 7524435 E04.9 She describes some dysphagia? or at least a choking like sensation. Clinically she has a palpable thyroid and she states that she has lost 6lbs unintentio wali. Chest pain 19849808 R07. 9 EKG, if one was done in the ER Blood in urine 52742481 R31.9 Possibly from a UTI?, she has been prescribed Bactrim and I will review the formal UA that I have ordered. [id number] Saroj Salazar Zenaida ([facility]) [address] [place] [address] [phone] 0 04/30/2015 09:48:49 04/30/2015 12:41:19 Gynecologic examination 87036768 Z01.419 Family kesha nning surveillance 265627079 Z30.09 Irritable bowel syndrome 35863610 K58.9 Constipation 47635156 K5 9.00 [id number] MD Zenaida Maguire (Adult Med) [address] [place] [address] 30238-039 0 02/03/2016 15:57:48 02/03/2016 17:12:35 Pain in left foot 0969655070 32916 M79.672 There is a history of a left foot injury for which she follows up with the orthopedic surgeon in [place], [place]. She has had multiple surgeries and she suggests inadequate union, there is a plan for her to followup. I will like to defer management of this issue to her orthopedic surgeon. Adult heal th examination 091181437 Z00.00 Ms. Remy returns and she has not really had any of the tests that we ordered done, she states that she has been going through some stuff. I have reprinted the previous orders from her last visit 02/2015 Immunization refused 275 172767 Z28.21 Asthma 719333846 J45.90 9 The role of her albuterol and steroid inhalers were discussed, it appears that in the interim she was prescribed a medal dose pack by ? [id number] MD Zenaida Maguire (Adult Med) [address] [place] [address] [phone] 0 05/25/2016 15:51:34 05/26/2016 09:05:25 Burping 454189204 R14.2 The etiology is unclearAdd endum 05/26/2016I wonder if some of her symptoms are related to pressure from her goiter, I will await the US and have her seen by ENT Goiter 6713953 E04.9 US as previously orderedAdd endum 05/16/2016EN T Tobacco de pendence syndrome 22449353 F17.290 Lightheadedness 11535761 8 R42 She describes lightheade dness which is intermitte nt and at times associated with tachycardi a Irregular periods 576251 07 N92.6 Intermitte nt palpitations 453904026 R00.2 [id number] Saroj Estevez [facility] ([facility]) [address] [place] [address] [id number] 0 06/08/2016 15:17:10 06/10/2016 17:07:40 Gynecologic examination 17881465 Z01.419 Constipation 73937019 K5 9.00 Bacterial vaginosis 4197 99877 N76.0 Irritable bowel syndrome 60314603 K58.9 Perimenopa usal disorder 630088729 N95.9 Anemia 127020448 D64.9 [id number] Saroj Estevez ([facility]) [address] [place] [address] 71660-602 0 02/15/2017 14:50:07 02/16/2017 14:21:11 Gynecologic examination 59348472 Z01.419 Exposure t o sexually transmissible disorder 796621647 Z20.2 Bacterial vaginosis 4197 42717 N76.0 Female pel nicola inflammatory disease 940009943 N73.9 Smoker 61676297 F17.265 [id number] Saroj Estevez ([facility]) [address] [place] [address] [id number] 0 11/28/2017 15:48:05 11/30/2017 12:58:52 Right inguinal hernia 754299856 K40.90 Inguinal hernia palpated in RLQ, guarding present, and tenderness upon palpation. Abnormal u terine bleeding 3646299582 9100 N93.9 Family kesha nning surveillance 227258303 Z30.09 [id number] SANTY OLIVEIRA ([facility]) [address] [place] [address] [phone] 0 02/05/2019 11:19:26 02/06/2019 14:23:11 Gynecologic examination 49487745 Z01.419 Venereal d isease screening 335109677 Z11.3 Screening mammography 24 705398 Z12.31 Family kesha nning surveillance 561432596 Z30.09 Advised pt that because she smokes and is older than 35yo, estrogen is CI. Discussed different progestin only options with patient such as POPs, Depo Provera shot, Nexplanon, and IUDs. Pt does not want implant and has tried Depo in the past. She is interested in POPs. Smoker 06283547 F17.200 Gastroesop hageal reflux disease without esophagitis 140631002 K21.9 Pt with chronic abdominal pain associated with acid reflux and nausea. Pt had generalize d tenderness in abdomen, but worse in the epigastric area. Recommend pt trial PPI therapy and f/u in 3 months to reassess symptoms. Abdominal pain 77367050 R10.9 Chronic. 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 Pt had EGD/colono scopy in 2017 [...] testing. Cannot rule out endometrio sis either. [id number] ISABELLE Queen ([facility]) [address] [place] [address] [id number] 0 02/15/2019 14:30:36 02/18/2019 12:57:54 Depot contraceptive-no problem 584357224 Z30.260 [id number] SANTY OLIVEIRA ([facility]) [address] [place] [address] [id number] 0 04/29/2022 09:17:12 05/10/2022 16:04:13 Gynecologic examination 92494351 Z01.419 Cervical cancer screening: Last Pap 2017, [...] intake. Screening for malignant neoplasm of breast 640487772 Z12.31 Patient has not had a mammogram in the past. Order placed for routine screening. Smoker 01913997 F17.200 Patient is a current smoker for the past 20 years. Counseled pt on smoking cessation. Vaginal discharge 032149 006 N89.8 Pt reports white discharge x 1 month, no discharge noted on exam today. Nuswab done, will notify with results and treat as indicated. Pain in pelvis 13986285 R10.2 Patient reports history of cysts diagnosed one year ago. She complains of chronic lower abdominal pain, dyspareuni a, dyschezia. Lower abdomen TTP on exam. Will get US to monitor cysts and further evaluate. [facility] ion care management 072231787 Z30.9 Pt previously on OCPs. Discussed different control options with patient including R/B/A/I. Advised no estrogen due to smoking status. Patient would like to stick with pills and agrees to start Slynd. Side effects discussed. RTC in 3 months. [id number] JAYANT DESAI (Adult Med) [address] [place] [address] [phone] 0 02/05/2024 15:04:49 02/06/2024 12:25:10 Gynecologic examination 17378533 Z01.419 Nuswab and PAP sample taken Mass of right breast 388 0887667 5252387 N63.10 3.8vys6ba mass on R breast, Upper Outer quadrant Adnexal tenderness 55853 3002 R10.2 R adnexal tenderness on PE todayPt having pain with intercours e Depression screening 171 564629 Z13.31 PHQ9- {{Negative Positive Mild* Mode rate Sever e}} (5 out of 27) Mental hea lth screening 267239492 Z13.39 GAD7- {{Negative Positive Mild* Mode rate Sever e}} (5 out of 21) Underweight 253922610 R6 3.6 BMI 18.6 Vaginal discharge 562568 006 N89.8 Health Concerns Section Related Observation LastModified by Organization Detai ls LastModified Time None Recorded Concern Status LastModified by Organization Details LastModified Time None Recorded Advance Directives Directive N: Payers Encounter Date Sequence Insurance Name Policy Number Policy Ramires Covered Member ID Ramires Member ID Guarantor Name 11/28/2017 2 [facility] Nuria Remy [id number] Nuria Remy 02/05/2019 [facility] Nuria Remy [id number] Nuria Remy 02/05/2019 1 [facility] [id number] [place] [id number] Nuria Jonel 02/15/2019 1 [place] [id number] [facility] [id number] Nuria Jonel 04/29/2022 1 [place] [id number] [facility] [id number] Nuria Remy 02/05/2024 1 [place] [id number] [facility] [id number] [facility] Notes Date Note Type Note Provider Name [...] On menstruation since 2017. KAREN Gerardo - [facility] 11/28/2017 22:12:30 02/05/2019 text/html Annual GYNReport ed [...] and dyspareunia. SANTY OLIVEIRA Attn: [address] [place], [address], [facility] 02/05/2019 17:12:48 04/29/2022 text/html Annual GYNReport ed [...] schedule mammogram SANTY OLIVEIRA Attn: Accounting[address] [place], [address], [facility] 05/05/2022 17:55:27 02/05/2024 text/html 48 y/o [...] EDMOND POSADA PA-C Attn: Accounting[address] [facility], [place], [address], [facility] 02/05/2024 15:51:29 OBGyn Episode Ob Episode Information Episode Created Date Number of Fetuses Patient Bloodtype Patient rh Status Prepregnancy Weight lbs Domestic Partner Domestic Partner Phone Father Name Bar Steward Status 04/30/20 15 1 CLOSED Fetus Data First Name Last Name Admitted to NICU Weight (g) Sex Living Outcome Pediatric Complications Fetus ID Race Codes Race Delivery Type 2863.29 95 F Prematur e 83308 Vaginal Ollie Calculation Initial Ollie Date Initial [...] Domestic Partner Domestic Partner Phone Father Name Bar Steward Status 04/30/20 15 1 CLOSED Fetus Data First Name Last Name Admitted to NICU Weight (g) Sex Living Outcome Pediatric Complications Fetus ID Race Codes Race Delivery Type , Induced 51487 Ollie Calculation Initial Ollie Date Initial Exam [...] Domestic Partner Domestic Partner Phone Father Name Bar Steward Status 04/30/20 15 1 CLOSED Fetus Data First Name Last Name Admitted to NICU Weight (g) Sex Living Outcome Pediatric Complications Fetus ID Race Codes Race Delivery Type 2721.55 2 F Full Term 78885 Vaginal Ollie Calculation Initial Ollie Date Initial [...] Domestic Partner Domestic Partner Phone Father Name Bar Steward Status 04/30/20 15 1 CLOSED Fetus Data First Name Last Name Admitted to NICU Weight (g) Sex Living Outcome Pediatric Complications Fetus ID Race Codes Race Delivery Type 3260.19 25 M Full Term 26340 Vaginal Ollie Calculation Initial Ollie Date Initial [...] Domestic Partner Domestic Partner Phone Father Name Bar Steward Status 04/30/20 15 1 CLOSED Fetus Data First Name Last Name Admitted to NICU Weight (g) Sex Living Outcome Pediatric Complications Fetus ID Race Codes Race Delivery Type , Induced 72578 Ollie Calculation Initial Ollie Date Initial Exam [...]
--- OUTSIDE RECORDS SUMMARY | 2024-06-28 08:35 | XMS_ITS | Clinical Summary ---
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
--- OUTSIDE RECORDS SUMMARY | 2024-06-28 08:35 | XMS_ITS | Data Portability ---
Author Organization [facility] [employer], Main Office Address [address] [place] [address] Care Team Providers Care Metal Crafts Teacher Name Role Phone JADA FELTON Sales [employer] Support [facility] Agent [phone] GREGG KEVIN Primary Care Provider GREGG KEVIN Referring Provider [phone] Assessment No assessment recorded. Plan of Treatment [...] 134.8 Perfo rmed at: CB - [facility] n [address] [facility], [place] [id number] Lab Direc tor: John jordan PhD, Phone : [phone] Not Available [facility] (Lab) [address] [place], [address], 05/28/2021 09:12:49 05/27/19 22 05/28/2021 ESTRA DIOL estradiol 46.2 pg/mL Adult Femal e: Folli cular phase 12.5 - 166.0 Ovula tion phase 85.8 - 498.0 Lutea l phase 43.8 - 211.0 Postm enopa usal <6.0 - 54.7 Pregn ruthy 1st trime ster 215.0 - >4300 .0 Ankush ECLIA metho dolog y Perfo rmed at: - [facility] n [address] [facility], [place] [address] 1260 Lab Direc tor: John jordan PhD, Phone : [phone] Not Available [facility] (Lab) [address] [place], [address], 05/28/2021 08:14:50 05/27/19 22 05/27/2021 HEMOG LOBIN A1C HA1C 5.6 % 4.0-6. 0 Diabe elaine Scree portia Crite telma: <5.7% Consi stent with absen ce of diabe elaine 5.7-6 .4% Consi stent with incre ased risk for diabe elaine (pred iabet es) >OR=6 .5% Consi stent with diabe elaine REFER ENCE: Diabe elaine Care 2016, 39(White ppl.1 ):s13 -s22 Not Available [facility] (Lab) [address] [place], [address], 05/27/2021 20:33:03 05/27/19 22 05/27/2021 TSH thyroid-stim ulating hormone 2.010 uIU/m L 0.465- 4.680 Not Available [facility] (Lab) [address] [place], [address], 05/27/2021 18:33:53 05/27/19 22 05/27/2021 VITAM IN D 25-HY DROXY vd25oh 20.5 NG/mL 30-100 low Vitam in D Statu s: Defic ient: <20 ng/mL Insuf ficie nt: 20-29 ng/mL Suffi cient : 30-10 0 ng/mL Not Available [facility] (Lab) [address] [place], [address], 05/27/2021 18:29:44 05/27/19 22 05/27/2021 B-HCG TOTAL [...] 19 6,800 TO 42,90 0 Not Available [facility] (Lab) [address] [place], [address], 05/27/2021 18:29:41 05/27/19 22 05/27/2021 T4 FREE free T4 1.22 NG/dL 0.78-2 .19 Not Available [facility] (Lab) [address] [place], [address], 05/27/2021 18:29:34 05/27/19 22 05/27/2021 LIPID PANEL [...] WILL NOT BE REPOR TEN. Not Available [facility] (Lab) [address] [place], [address], 05/27/2021 18:13:10 05/27/19 22 05/27/2021 LIPID PANEL cholesterol 190 mg/dL 140-19 9 NIH MEAGHAN NSUS RECOM MENDA TION FOR DINO STERO L: ADULT CHILD LOW RISK: <200 <170 BORDE RLINE : <200- 239 ----- HIGH RISK: >240 >200 Not Available [facility] (Lab) [address] [place], [address], 05/27/2021 18:13:10 05/27/19 22 05/27/2021 LIPID PANEL triglyceride s 56 mg/dL 0-150 NIH MEAGHAN NSUS REPOR T RECOM MENDA TION FOR TRIGL YCERI KIM: ADULT CHILD LOW RISK: <150 ----- BODER LINE: 150-1 99 ----- HIGH RISK: >200 ----- Not Available [facility] (Lab) [address] [place], [address], 05/27/2021 18:13:10 05/27/19 22 05/27/2021 LIPID PANEL HDL cholesterol 92 mg/dL 40- Not Available [facility] (Lab) [address] [place], [address], 05/27/2021 18:13:10 05/27/19 22 05/27/2021 COMPR EHENS EZ METAB OLIC PANEL carbon dioxide 26 mmol/ L 22-30 Not Available [facility] (Lab) [address] [place], [address], 05/27/2021 18:13:04 05/27/19 22 05/27/2021 COMPR EHENS EZ METAB OLIC PANEL sodium 139 mmol/ L 137-14 5 Not Available [facility] (Lab) [address] [place], [address], 05/27/2021 18:13:04 05/27/19 22 05/27/2021 COMPR EHENS EZ METAB OLIC PANEL potassium 3.6 mmol/ L 3.5-5. 1 Not Available [facility] (Lab) [address] [place], [address], 05/27/2021 18:13:04 05/27/19 22 05/27/2021 COMPR EHENS EZ METAB OLIC PANEL chloride 103 mmol/ L 98-107 Not Available [facility] (Lab) [address] [place], [address], 05/27/2021 18:13:04 05/27/19 22 05/27/2021 COMPR EHENS EZ METAB OLIC PANEL agap 13.6 mmol/ L 14-22 low Not Available [facility] (Lab) [address] [place], [address], 05/27/2021 18:13:04 05/27/19 22 05/27/2021 COMPR EHENS EZ METAB OLIC PANEL glucose 116 mg/dL 70-99 high Not Available [facility] (Lab) [address] [place], [address], 05/27/2021 18:13:04 05/27/19 22 05/27/2021 COMPR EHENS EZ METAB OLIC PANEL BUN 7 mg/dL 8-19 low Not Available [facility] (Lab) [address] [place], [address], 05/27/2021 18:13:04 05/27/19 22 05/27/2021 COMPR EHENS EZ METAB OLIC PANEL creatinine 0.65 mg/dL 0.66-1 .25 low Not Available [facility] (Lab) [address] [place], [address], 05/27/2021 18:13:04 05/27/19 22 05/27/2021 COMPR EHENS EZ METAB OLIC PANEL aspartate aminotransfe rase 18 U/L 15-37 Not Available [facility] (Lab) [address] [place], [address], 05/27/2021 18:13:04 05/27/19 22 05/27/2021 COMPR EHENS EZ METAB OLIC PANEL GFR >60 Refer ence Range : [place] ge GFR Healt hy Adult : >60 [...] serum creat inine relat ed to nutri melinda l statu s or medic ation usage . For perso ns <18 years of age, a pedia tric GFR calcu lator is avail able on the [facility] websi te: https ://sandrine matos.sariah quintero.o fabiano/pr araess shannanal s/sandpio qi/gf r_cal culat or Not Available [facility] (Lab) [address] [place], [address], 05/27/2021 18:13:04 05/27/19 22 05/27/2021 COMPR EHENS EZ METAB OLIC PANEL alkaline phosphatase 111 U/L 38-126 Not Available [facility] (Lab) [address] [place], [address], 05/27/2021 18:13:04 05/27/19 22 05/27/2021 COMPR EHENS EZ METAB OLIC PANEL alanine aminotransfe rase 14 U/L 0-35 Not Available [facility] (Lab) [address] [place], [address], 05/27/2021 18:13:04 05/27/19 22 05/27/2021 COMPR EHENS EZ METAB OLIC PANEL bilirubin, total 0.40 mg/dL 0.20-1 .30 Not Available [facility] (Lab) [address] [place], [address], 05/27/2021 18:13:04 05/27/19 22 05/27/2021 COMPR EHENS EZ METAB OLIC PANEL calcium 9.2 mg/dL 8.4-10 .2 Not Available [facility] (Lab) [address] [place], [address], 05/27/2021 18:13:04 05/27/19 22 05/27/2021 COMPR EHENS EZ METAB OLIC PANEL total protein 7.7 g/dL 6.3-8. 2 Not Available [facility] (Lab) [address] [place], [address], 05/27/2021 18:13:04 05/27/19 22 05/27/2021 COMPR EHENS EZ METAB OLIC PANEL albumin 4.5 g/dL 3.4-5. 0 Not Available [facility] (Lab) [address] [place], [address], 05/27/2021 18:13:04 05/27/19 22 05/27/2021 COMPR EHENS EZ METAB OLIC PANEL globulin 3.2 g/dL 2.6-4. 2 Not Available [facility] (Lab) [address] [place], [address], 05/27/2021 18:13:04 05/27/19 22 05/27/2021 COMPR EHENS EZ METAB OLIC PANEL A/G ratio 1.4 ratio 1.0-2. 0 Not Available [facility] (Lab) [address] [place], [address], 05/27/2021 18:13:04 05/27/19 22 05/27/2021 CBC/C OMPLE TE BLD COUNT W/DIF F white blood cells 4.3 x10'3 /uL 4.2-10 .8 Not Available [facility] (Lab) [address] [place], [address], 05/27/2021 18:11:57 05/27/19 22 05/27/2021 CBC/C OMPLE TE BLD COUNT W/DIF F red blood cells 4.65 x10'6 /uL 3.80-5 .20 Not Available [facility] (Lab) [address] [place], [address], 05/27/2021 18:11:57 05/27/19 22 05/27/2021 CBC/C OMPLE TE BLD COUNT W/DIF F hemoglobin 14.2 g/dL 12.0-1 5.6 Not Available [facility] (Lab) [address] [place], [address], 05/27/2021 18:11:57 05/27/19 22 05/27/2021 CBC/C OMPLE TE BLD COUNT W/DIF F hematocrit 43.1 % 35.7-4 5.7 Not Available [facility] (Lab) [address] [place], [address], 05/27/2021 18:11:57 05/27/19 22 05/27/2021 CBC/C OMPLE TE BLD COUNT W/DIF F mean red cell volume 92.7 fL 82.0-9 9.0 Not Available [facility] (Lab) [address] [place], [address], 05/27/2021 18:11:57 05/27/19 22 05/27/2021 CBC/C OMPLE TE BLD COUNT W/DIF F mean red cell hemoglobin 30.5 pg 27.0-3 3.0 Not Available [facility] (Lab) [address] [place], [address], 05/27/2021 18:11:57 05/27/19 22 05/27/2021 CBC/C OMPLE TE BLD COUNT W/DIF F mean RBC HGB concentratio n 32.9 g/dL 31.0-3 6.0 Not Available [facility] (Lab) [address] [place], [address], 05/27/2021 18:11:57 05/27/19 22 05/27/2021 CBC/C OMPLE TE BLD COUNT W/DIF F red cell distribution width 13.5 % 11.8-1 5.5 Not Available [facility] (Lab) [address] [place], [address], 05/27/2021 18:11:57 05/27/19 22 05/27/2021 CBC/C OMPLE TE BLD COUNT W/DIF F platelets 181 x10'3 /uL 150-40 0 Not Available [facility] (Lab) [address] [place], [address], 05/27/2021 18:11:57 05/27/19 22 05/27/2021 CBC/C OMPLE TE BLD COUNT W/DIF F mean platelet volume 11.9 fL 9.0-12 .4 Not Available [facility] (Lab) [address] [place], [address], 05/27/2021 18:11:57 05/27/19 22 05/27/2021 CBC/C OMPLE TE BLD COUNT W/DIF F neutrophils 50.3 % 39.0-7 2.0 Not Available [facility] (Lab) [address] [place], [address], 05/27/2021 18:11:57 05/27/19 22 05/27/2021 CBC/C OMPLE TE BLD COUNT W/DIF F lymphocytes 40.0 % 16.0-4 7.0 Not Available [facility] (Lab) [address] [place], [address], 05/27/2021 18:11:57 05/27/19 22 05/27/2021 CBC/C OMPLE TE BLD COUNT W/DIF F monocytes 9.3 % 5.0-12 .0 Not Available [facility] (Lab) [address] [place], [address], 05/27/2021 18:11:57 05/27/19 22 05/27/2021 CBC/C OMPLE TE BLD COUNT W/DIF F eosinophils 0.2 % 1.0-7. 0 low Not Available [facility] (Lab) [address] [place], [address], 05/27/2021 18:11:57 05/27/19 22 05/27/2021 CBC/C OMPLE TE BLD COUNT W/DIF F basophils 0.2 % 0.0-2. 0 Not Available [facility] (Lab) [address] [place], [address], 05/27/2021 18:11:57 05/27/19 22 05/27/2021 CBC/C OMPLE TE BLD COUNT W/DIF F basophils, absolute count 0.01 x10'3 /uL 0.01-0 .08 Not Available [facility] (Lab) [address] [place], [address], 05/27/2021 18:11:57 05/27/19 22 05/27/2021 CBC/C OMPLE TE BLD COUNT W/DIF F immature granulocytes 0.0 % 0.00-0 .50 Not Available [facility] (Lab) [address] [place], [address], 05/27/2021 18:11:57 05/27/19 22 05/27/2021 CBC/C OMPLE TE BLD COUNT W/DIF F neutrophils, absolute count 2.15 x10'3 /uL 1.5-8. 0 Not Available [facility] (Lab) [address] [place], [address], 05/27/2021 18:11:57 05/27/19 22 05/27/2021 CBC/C OMPLE TE BLD COUNT W/DIF F lymphocytes, absolute count 1.71 x10'3 /uL 1.07-3 .43 Not Available [facility] (Lab) [address] [place], [address], 05/27/2021 18:11:57 05/27/19 22 05/27/2021 CBC/C OMPLE TE BLD COUNT W/DIF F monocytes, absolute count 0.40 x10'3 /uL 0.29-0 .99 Not Available [facility] (Lab) [address] [place], [address], 05/27/2021 18:11:57 05/27/19 22 05/27/2021 CBC/C OMPLE TE BLD COUNT W/DIF F eosinophils, absolute count 0.01 x10'3 /uL 0.02-0 .53 low Not Available [facility] (Lab) [address] [place], [address], 05/27/2021 18:11:57 05/27/19 22 05/27/2021 CBC/C OMPLE TE BLD COUNT W/DIF F immature granulocytes ,absolute 0.00 x10'3 /uL 0.00-0 .05 Not Available [facility] (Lab) [address] [place], [address], 05/27/2021 18:11:57 05/27/19 22 05/27/2021 CBC/C OMPLE TE BLD COUNT W/DIF F nucleated red blood cells 0.0 % -0 Not Available [facility] (Lab) [address] [place], [address], 05/27/2021 18:11:57 05/27/19 22 05/27/2021 CBC/C OMPLE TE BLD COUNT W/DIF F NRBC# 0.00 x10'3 /uL Not Available [facility] (Lab) [address] [place] [address], [place], [address], 05/27/2021 18:11:57 06/24/19 22 06/24/2021 urina lysis , dipst ick Leukocytes (reference range: negative roly/ l) Negati ve Not Available [place] [address], [place], [address], 06/24/2021 11:20:36 06/24/19 22 06/24/2021 urina lysis , dipst ick Nitrite (reference rage: negative mg/dl) negati ve Not Available _[address], [address], 06/24/2021 11:20:36 06/24/19 22 06/24/2021 urina lysis , dipst ick Urobilinogen (reference range: 0.2-1 mg/dl) 1 Not Available [facility] [address], [place], [address], 06/24/2021 11:20:36 06/24/19 22 06/24/2021 urina lysis , dipst ick Protein (reference range: negative mg/dl) Negati ve Not Available [address], [address], 06/24/2021 11:20:36 06/24/19 22 06/24/2021 urina lysis , dipst ick pH (reference range: 5-7) 7.0 Not Available [facility]_[address], [address], 06/24/2021 11:20:36 06/24/19 22 06/24/2021 urina lysis , dipst ick Blood (reference range: negative Arnaldo/ l) Negati ve Not Available [address], [address], 06/24/2021 11:20:36 06/24/19 22 06/24/2021 urina lysis , dipst ick Specific [place] (reference range: 1.005-1.030) 1.025 Not Available Z_[address], [address], 06/24/2021 11:20:36 06/24/19 22 06/24/2021 urina lysis , dipst ick Ketone (reference range: negative mg/dl) Negati ve Not Available [address], [address], 06/24/2021 11:20:36 06/24/19 22 06/24/2021 urina lysis , dipst ick Bilirubin (reference range: negative mg/dl) Negati ve Not Available [address], [address], 06/24/2021 11:20:36 06/24/19 22 06/24/2021 urina lysis , dipst ick Glucose (reference range: negative mg/dl) Negati ve Not Available [address], [address], 06/24/2021 11:20:36 06/24/19 22 06/24/2021 urina lysis , dipst ick Appearance Clear Not Available [address] [place], [address], 06/24/2021 11:20:36 06/24/19 22 06/24/2021 urina lysis , dipst ick Color Yellow Not Available [facility] [address], [place] [address], [place], [address], 06/24/2021 11:20:36 02/19/20 21 02/17/2021 XR, shoul jesus No observ ation record ed. [id number] Not Available 07/13/2022 01:00:01 03/30/20 21 03/16/2021 CT, head, w/o contr ast No observ ation record ed. [id number] Not Available 07/13/2022 01:00:01 03/30/20 21 03/16/2021 CT, cervi rodríguez spine , w/o contr ast No observ ation record ed. [id number] Not Available 07/13/2022 01:00:01 03/30/20 21 03/16/2021 XR, chest , 2 view No observ ation record ed. [id number] Not Available 07/13/2022 01:00:01 03/30/20 21 03/16/2021 XR, shoul jesus No observ ation record ed. [id number] Not Available 07/13/2022 01:00:01 06/23/19 22 06/17/2021 CT, abdom en + pelvi s, w/o contr ast No observ ation record ed. [id number] Not Available 07/13/2022 01:00:01 06/24/19 22 06/24/2021 US, bladd er No observ ation record ed. [id number] [facility] [address], [address] , [place], [address], 07/13/2022 01:00:01 Result Notes None recorded. 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 Procedures Surgical History None recorded. Imaging Results Imaging Date Name Status LastModified by Organiz ation Details LastModified Time 02/17/2021 XR, shoulder completed [id number].[id number] 30 026 Information not available 07/13/2022 01:00:01 03/16/2021 CT, head, w/o contrast completed [id number] 026 Information not available 07/13/2022 01:00:01 03/16/2021 CT, cervical spine, w/o contrast completed [id number] 026 Information not available 07/13/2022 01:00:01 03/16/2021 XR, chest, 2 view completed MIGRATION.[id number] 026 Information not available 07/13/2022 01:00:01 03/16/2021 XR, shoulder completed MIGRATION.68366 30 026 Information not available 07/13/2022 01:00:01 06/24/2021 US, bladder completed MIGRATION.81502 30 026 [facility] [address], [address], [place], [address], 07/13/2022 01:00:01 06/17/2021 CT, abdomen + pelvis, w/o contrast completed MIGRATION.[id number] 026 Information not available 07/13/2022 01:00:01 Procedure [...] injection administe red by the provider active [facility]: 0003- 0494- 20 Not Available Not Available [...] Not Available Not Available No t Available Depo-Brick Shader a 150 mg/mL intramuscul ar syringe Inject [...] administe red by the provider 06/24 completed [facility]: 0409- 4276- [phone] Not Available Not Available [...] /min 78 /min 97.8 [degF] 98.1 [degF] 79651.0 8 g 20929.0 8 g 12557.0 8 g 08742.0 8 g 118 mm[Hg] 74 mm[Hg] 150 mm[Hg] 95 mm[Hg] Not [facility] Social History Question Answer Notes LastModified by Organizat ion Details LastModified Time Tobacco Smoking Status Current Every Day Smoker Not Available [facility] 07/13/2022 00:43:39 What Is Your Level Of Alcohol Consumption? Occasional [id number].[id number] 7025 Information not available 07/13/2022 What Is Your Level Of Caffeine Consumption? Heavy MIGRATION.320955 8113 Information not available 07/13/2022 In The 14 Days Before Symptom Onset, Have You Had Close Contact With A Laboratory-confir med COVID-19 While That Case Was Ill? No MIGRATION.471620 1199 Information not available 07/13/2022 In The 14 Days Before Symptom Onset, Have You Had Close Contact With A Person Who Is Under Investigation For COVID-19 While That Person Was Ill? No MIGRATION.705549 3129 Information not available 07/13/2022 What Type Of Diet Are You Following? REGULAR MIGRATION.966145 5439 Information not available 07/13/2022 What Is The Highest Grade Or Level Of School You Have Completed Or The Highest Degree You Have Received? VL49546-1 MIGRATION.082336 0282 Information not available 07/13/2022 What Is Your Occupation? [employer] MIGRATION.956973 5982 Information not available 07/13/2022 Have There Been Any Changes To Your Family Or Social Situation? No MIGRATION.607896 8681 Information not available 07/13/2022 What Is The Fluoride Status Of Your Home? Unknown MIGRATION.133418 4516 Information not available 07/13/2022 Are There Any Guns Present In Your Home? No MIGRATION.257221 6102 Information not available 07/13/2022 Do You Use Insect Repellent Routinely? No MIGRATION.892895 4849 Information not available 07/13/2022 Where Do You Live? Apartment MIGRATION.814871 0224 Information not available 07/13/2022 What Was The Date Of Your Most Recent Tobacco Screening? 06/24/2021 MIGRATION.071135 2695 Information not available 07/13/2022 Do You Have Any Pets? No MIGRATION.811205 0742 Information not available 07/13/2022 What Is Your Relationship Status? MIGRATION.090296 8526 Information not available 07/13/2022 Do You Use Your Seat Belt Or Car Seat Routinely? Yes MIGRATION.263525 4771 Information not available 07/13/2022 Do You Have Smoke And Carbon Monoxide Detectors In Your Home? No MIGRATION.331163 2475 Information not available 07/13/2022 Are You Passively Exposed To Smoke? Yes MIGRATION.525718 2655 Information not available 07/13/2022 Are There Any Smokers In Your House? No MIGRATION.740553 6109 Information not available 07/13/2022 How Much Tobacco Do You Smoke? 0.5 PPD MIGRATION.799857 5835 Information not available 07/13/2022 Do You Feel Stressed (tense, Restless, Nervous, Or Anxious, Or Unable To Sleep At Night)? [id number] MIGRATION.458459 5109 Information not available 07/13/2022 Have You Recently Traveled Abroad? No MIGRATION.460910 1531 Information not available 07/13/2022 Do You Have Any Dietary Restrictions? No MIGRATION.590196 0047 Information not available 07/13/2022 Sex: Unknown Functional Status Question Answer Note LastModified by Organizat ion Details LastModified Time What is your exercise level? Occasional [id number].[id number] 26 Information not available 07/13/2022 Mental Status None recorded. Family History Relationship Description Onset Age of this Age Resolved Age Notes LastModified by Organization Details LastModified Time Mother Family history of malignant neoplasm [id number] Not available 07/13/2022 00:45:20 Father Hypertensive disorder [id number].[id number] Not available 07/13/2022 00:45:20 Medical History No medical history recorded. Gynecological HistoryNo gynecological history recorded. Obstetrics History GPAL:G 4 P 3 0 1 3 Type Value Full Term 3 Spontaneous 1 Living 3 Total 4 Past Encounters Encounter ID Performer Location Encounter Start Date Encounter Closed Date Diagnosis/Indication Diagnosis SNOMED-CT Code Diagnosis ICD10 Code Diagnosis Note [id number] _SUSHMA_M IGRATION_ DEFAULT_1 _1 , 09/07/2020 00:00:00 09/07/2020 16:29:55 [id number] [facility] [address] [place] [address] 02/22/2021 00:00:00 02/22/2021 11:39:23 [id number] [facility] [address] [address] 03/23/2021 00:00:00 03/23/2021 09:38:23 [id number] [facility] [address] [address] 04/06/2021 00:00:00 04/06/2021 09:17:16 [id number] [facility] Internal Med [facility] [address] [place] [address], [facility] [address] [place] [address] 05/13/2021 00:00:00 05/13/2021 18:07:40 [id number] [facility] [address], [address] [place] [address] 06/24/2021 00:00:00 06/24/2021 12:03:06 Health Concerns Section Related Observation LastModified by Organization Detai ls LastModified Time None Recorded Concern Status LastModified by Organization Details LastModified Time None Recorded Advance Directives Directive None Recorded Payers None recorded. OBGyn Episode No OBEpisode recorded.
--- OUTSIDE RECORDS SUMMARY | 2024-06-28 08:35 | XMS_ITS | Referral Summary ---
Author Organization [facility] Address Count includes the [facility] [place] [address] Care Team Providers Care Digital Marketing Analyst Name Role Phone No, Physician Primary Care Provider [phone] Allergies No known active allergies Medications albuterol [...] on file Legal Sex Female 5:08 PM CPAS Gender Identity Not on file Sexual Orientation [...] Not on file Insurance [employer]US [address] [facility] CHOICE PLUS [place] [id number] Care Teams Digital Marketing Analyst Relationship Specialty Start Date End Date No, Physician PCP - General 01/31/18
== END 2024-06-28 08:28 | disposition home or self-care (01) ==
LOC: ANHIMG 08:29
PROVIDERS: PCP Family Medicine; Visit Provider Obstetrics & Gynecology
DX: N63.10 Unspecified lump in the right breast, unspecified quadrant (principal); N63.20 Unspecified lump in the left breast, unspecified quadrant
CPT/HCPCS: 76641; 77062; 77066; G0279